=== PATIENT | female | born 1940 | race Caucasian/White ===

== ENCOUNTER 2017-12-15 11:10 | Inpatient (IN) | payer OTHER ==
--- NOTE | 2017-12-15 13:15 | R.PREADM ---
SCREENING DATE AND TIME 12/15/2017 10:17 (CDT) ANTICIPATED REHAB ADMISSION DATE 12/17/2017 REFERRING FACILITY [facility] REFERRAL DATE AND TIME 12/13/2017 10:17 (CDT) REFERRAL OFFICE PHONE REFERRAL ROOM# 401 ACUTE ADMIT DATE 12/12/2017 Previous Rehabilitation(s): No. 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 DORIAN EASTMAN REHAB FACILITY [facility] CLINICAL LIAISON Laina Harrell PHYSICIAN REVIEWER Dr. Maximiliano Bernal M.D. MR# [id number] NAME KYLIE CASE ADDRESS [address] [place] [address] [address] [place] [address] PHONE [facility] [id number] DATE OF 1940 AGE 77 N# [id number] GENDER female MARITAL STATUS RACE white ADMIT FROM 02 - [facility] PRE-HOSPITAL LIVING SETTING 01 - Home (private home/apt. board/care, assisted living, usp, transitional living) HOME TYPE AND DETAILS Type of home: Home on [facility] # of steps to enter the residence: 8 # of levels in the residence: 1 # of steps within the residence: 0 PRE-HOSPITAL LIVING WITH Family/Relatives FAMILY SUPPORT Yes PRIMARY FAMILY CONTACT NAME Arron Hinds PRIMARY FAMILY CONTACT PHONE PRIMARY FAMILY CONTACT RELATIONSHIP Significant Other IS PRIMARY FAMILY CONTACT AUTH. REP.? no 1ST EMERGENCY CONTACT Arron Hinds 1ST CONTACT PHONE 1ST CONTACT RELATIONSHIP Significant Other IS 1ST CONTACT AUTH. REP.? no PHONE 2ND CONTACT ON ADM.? no PATIENT EMPLOYMENT STATUS Retired (for age) PATIENT EMPLOYER No Employer PAYOR INFORMATION: 1ST PAYOR NAME MEDICARE 1ST PAYOR PHONE 1ST PAYOR CONTACT TBD 1ST PAYOR INJURY/ILLNESS DUE TO ACCIDENT? No ANOTHER DEMOCRAT RESPONSIBLE? No PRIMARY REHAB/ACUTE DIAGNOSIS: Impacted left subcapital femoral neck fracture ONSET DATE 12/12/2017 REHAB IMPAIRMENT CATEGORY (JESE): 07 Fracture of LE (FracLE) MEETS 60% rule AFFECTED EXTREMITIES: LLE PRIMARY DIAGNOSIS-RELATED SURGERIES: Emergency Percutaneous pin fixation left impacted femoral neck fracture - performed by DR. DORIAN VALENCIA on 12/13/2017 SUMMARY OF ACUTE HOSPITALIZATION: Pt. is a 77 yo Right-handed white female. On 12/12/2017 she was admitted to [facility] and underwent emergency surgery for Impacted le ft subcapital femoral neck fracture (Percutaneous pin fixation left impacted femoral neck fracture ) by DR. DORIAN EASTMAN. Pre-morbidly, Pt. was independent/mod-I in Locomotion and Self-Care; and she had good Transfers Contr ol, Balance, Safety Awareness, Social Cognition, Sphincter Control, and Communication. Currently, she has deficits of Sphincter Control, Locomotion, Balance, Endurance, Safety Awareness, T ransfers Control, and Self-Care. Pt. is now referred to [facility] for acute in-patient rehabilitation in order to maximize patient's functional independence in activities of daily living, strength, ROM, and mobi lity. Patient has realistic goal of being discharged at assistance level 6-Micheal to reside at Home with Fam mario alberto/Relatives. PAST MEDICAL HISTORY HTN Anemia PAST SURGICAL HISTORY: tonsillectomy Cholecystectomy right HILARY MEDICATION ALLERGIES: Sulfa ENVIRONMENTAL ALLERGIES: None Known - Substance Allergies None Known - Other Allergies None Known CODE STATUS: Not Available WEIGHT/HEIGHT/BMI: WEIGHT 140 HEIGHT 5' 3" BMI 24.8 DIET: - Diet Type Regular - Diet - Solid Texture Regular - Diet - Liquid Texture Regular - Tube Feed N/A SKIN DIAGRAM: Incision on Left hip; extent - small; stage - NS(Not Stageable). Treatment - Per Physician's Orders. Aching Left hip pain; level - 7. REVIEW OF SYSTEMS: - Gen Alert and awake Lying in bed No apparent distress Oriented to: person, time, and place - Vital Signs Vital signs stable, afebrile - CVS RRR VITAL SIGNS Temperature: 98.2 F SBP/DBP: 149/70 Pulse: 78 Resp: 18 Vital signs stable, afebrile FUNCTIONAL STATUS: - Self-Care A. Eating Ind sup B. Grooming Ind sup C. Bathing Ind maxA D. Dressing - Upper Ind modA E. Dressing - Lower Ind maxA F. Toileting Ind maxA - Sphincter Control G. Bladder control Ind maxA H. Bowel control Ind maxA - Transfers Control I. Bed/Chair/Wheelchair Ind maxA J. Toilet Ind maxA K. Tub/Shower Ind maxA - Locomotion L. Walk/Wheelchair (W) Ind Dep M. Stairs Ind ADNO - Communication N. Comprehension (B) Ind Micheal O. Expression (B) Ind Micheal - Social Cognition P. Social Interaction Ind Micheal Q. Problem Solving Ind Micheal R. Memory Ind Micheal - Endurance Poor - Balance Poor - Safety Awareness Poor CURRENT FUNC. DEFICITS: Sphincter Control, Locomotion, Balance, Endurance, Safety Awareness, Transfers Control, and Self-Care THERAPY NOTES FROM ACUTE CARE: Attached. SPECIAL NEEDS: - Safety Concerns Skin breakdown precautions needed due to skin breakdown risk PRECAUTIONS: - Weight Bearing Precaution TTWB left LE PATIENT NEEDS ACTIVE AND ONGOING THERAPEUTIC INTERVENTION OF MULTIPLE THERAPY DISCIPLINES, INCLUDING: - Occupational Therapy Evaluate and Treat. - Physical Therapy Evaluate and Treat. PATIENT NEEDS CLOSE MEDICAL SUPERVISION BY A REHABILITATION PHYSICIAN FOR: Bowel and Bladder Management Coordination of Treatment Team Post-Op Complications Wound Care PATIENT REQUIRES 24X7 REHAB NURSING FOR MEDICAL AND FUNCTIONAL MGT. OF THE FOLLOWING DEFICITS: ADL's Ambulation Bowel and Bladder Management Cognition Communication Disease Management Medication Management Patient/Family Education Providing Safe Environment Skin Integrity Transfers PATIENT REQUIRES INTENSIVE, COORDINATED INTERDISCIPLINARY APPROACH TO REHAB: Arranging Home Equipment/Services Discharge Planning Family Intervention/Training [employer] Director/Case Management PATIENT REHAB POTENTIAL: Expected level of measurable improvement will be of a practical value to patient's functional capacit y or adaptations to impairments Has a viable Discharge Plan Medically appropriate; condition is sufficiently stable to participate in intensive rehab program Patient is able and expected to receive 3 hours of individualized therapy daily on at least 5 of ever y 7 days Patient's prognosis for significant practical improvement within a reasonable period of time appears Good DISCHARGE PLAN: - Estimated Length of Stay (days) 14. - Consensus on plan Discharge plan has been discussed with primary caregiver. Patient/Family is in agreement with the devin n. Primary caregiver is in agreement with the plan. - Patient/Family Goals Return home with assistance. - Planned Living Setting Upon Discharge Home, to live with Family/Relatives. RECOMMENDED CARE LEVEL: IRF RECOMMENDATION DETAILS: Recommended Admission to Comprehensive Rehabilitation Program to Increase Functional [place] SCREENER'S COMPLETENESS CONFIRMATION: - Screening Confirmation The patient data collection on this preadmission screening form is finished PHYSICIANS REVIEW AND ADMISSION DETERMINATION Admit - Based on my review of the Pre-Admission Screening results, in my medical judgment and experie nce, I concur with the findings and recommend admission to [facility], as this patient requires an IRF level of care. SIGNATURE PANEL: Clinical Liaison - [electronically] signed by Fatemeh Hubbard, Glass Artist on 12/15/2017 at 10:44 (C DT) Clinical Liaison - [electronically] signed by Laina Asif RN on 12/15/2017 at 10:53 (CDT) Physician Reviewer - [electronically] signed by Dr. Maximiliano Bernal M.D. on 12/15/2017 at 12:17 (CDT )
--- NOTE | 2017-12-15 16:35 | RAD REPORT ---
EXAM DESCRIPTION: RAD - Hip Left 2 View - 12/15/2017 4:24 pm CLINICAL HISTORY: Left hip pain COMPARISON: 12/13/2017 FINDINGS: Four dynamic screws are present in the proximal left femur. No evidence of hardware loosen ing or malposition. Skin dana are noted laterally.
--- NOTE | 2017-12-15 16:50 | FAST ---
ENCOUNTER DATE AND TIME: 12/15/2017 08:00 (CDT) NAME KYLIE CASE DATE OF : 1940 DATE OF ADMISSION: 12/15/2017 13:36 (CDT) PHONE: AGE: 77 N# [id number] GENDER: Female ENCOUNTER PHYSICIAN: Dr. Maximiliano Bernal M.D. ADMISSION DIAGNOSIS: - Orthopaedic Disorders 08 - Unilateral Hip Fracture (08.11) Impacted left subcapital femoral neck fracture. EATING: Activity did not occur on this shift EATING - SCORE: 0-UNK GROOMING: Activity did not occur on this shift GROOMING - SCORE: 0-UNK BATHING: Activity did not occur on this shift BATHING - SCORE: 0-UNK DRESSING - UPPER BODY: Activity did not occur on this shift ARTICLES SCORE Total number of steps: 0 DRESSING - UPPER BODY - SCORE: 0-UNK DRESSING - LOWER BODY: Activity did not occur on this shift ARTICLES SCORE Total number of steps: 0 DRESSING - LOWER BODY - SCORE: 0-UNK TOILETING: Activity did not occur on this shift TOILETING - SCORE: 0-UNK BLADDER MANAGEMENT: Activity did not occur on this shift BLADDER MANAGEMENT - SCORE: 7-IND BOWEL MANAGEMENT: Activity did not occur on this shift BOWEL MANAGEMENT - SCORE: 7-IND TRANSFERS: BED, CHAIR, WHEELCHAIR: TRANSFERS: BED, CHAIR, WHEELCHAIR - STEP 1: Does the patient require assistance with bed, chair, or wheelchair transfers? Yes. TRANSFERS: BED, CHAIR, WHEELCHAIR - STEP 2: Does the patient require the assistance of a helper? Yes. TRANSFERS: BED, CHAIR, WHEELCHAIR - STEP 3: How much assistance does the patient require from the helper? Lifting of the patient TRANSFERS: BED, CHAIR, WHEELCHAIR - STEP 4: Does the helper lift the patient ONLY up? ONLY down? Up AND Down? Up AND Down. TRANSFERS: BED, CHAIR, WHEELCHAIR - SCORE: 2-MAX TRANSFERS: TOILET: Activity did not occur on this shift TRANSFERS: TOILET - SCORE: 0-UNK TRANSFERS: SHOWER: Activity did not occur on this shift TRANSFERS: SHOWER - SCORE: 0-UNK TRANSFERS: TUB: Activity did not occur on this shift TRANSFERS: TUB - SCORE: 0-UNK LOCOMOTION: WALK: Patient walks less than 50 feet LOCOMOTION: WALK - SCORE: 1-DEP LOCOMOTION: WHEELCHAIR: LOCOMOTION: WHEELCHAIR - STEP 1: Does the patient need help to go 150 feet in a wheelchair? Yes. LOCOMOTION: WHEELCHAIR - STEP 2: How much assistance does the patient need from the helper? Patient goes less than 150 feet - but more than 50 feet - with the assistance of only one helper LOCOMOTION: WHEELCHAIR - SCORE: 2-MAX LOCOMOTION: STAIRS: Activity did not occur on this shift LOCOMOTION: STAIRS - SCORE: 0-UNK COMPREHENSION: COMPREHENSION - SCORE: 0-UNK EXPRESSION EXPRESSION - SCORE: 0-UNK SOCIAL INTERACTION: SOCIAL INTERACTION - SCORE: 0-UNK PROBLEM SOLVING: PROBLEM SOLVING - SCORE: 0-UNK MEMORY: MEMORY - SCORE: 0-UNK SIGNATURE PANEL: The following modified sections: Transfers: Bed, Chair, Wheelchair - Score, Transfers: Toilet - Score , Locomotion: Walk - Score, Locomotion: Wheelchair - Score, Locomotion: Stairs - Score were [electron ically] signed by Terrence Tabor PT on TueDec 15 2017 15:51:26 T-0500 (Central Daylight Time)
[2017-12-15] MEDS ORDERED: HYDROCODONE/APAP 5/325 MG TAB PO PRN (17:36)
[2017-12-15] MEDS: AMOX/K CLAV 500 MG TAB PO SCH (20:20)
[2017-12-15] MEDS: TRAVOPROST 0.004% EACH EYE SCH (20:20)
[2017-12-15] MEDS: HYDROCODONE/APAP 7.5/325 MG TAB PO PRN (20:27)
--- NOTE | 2017-12-16 03:06 | FAST ---
SHIFT START DATE/TIME: 12/15/2017 19:00 (CDT) SHIFT END DATE/TIME: 12/16/2017 07:00 (CDT) NAME KYLIE CASE DATE OF : 1940 DATE OF ADMISSION: 12/15/2017 13:36 (CDT) PHONE: AGE: 77 N# [id number] GENDER: Female ENCOUNTER PHYSICIAN: Dr. Maximiliano Bernal M.D. ADMISSION DIAGNOSIS: - Orthopaedic Disorders 08 - Unilateral Hip Fracture (08.11) Impacted left subcapital femoral neck fracture. EATING: EATING - STEP 1: Does the patient require assistance when eating? Yes. EATING - STEP 2: Does the patient require the assistance of a helper? Yes. EATING - STEP 3: Does the patient perform half or more of the eating tasks? Yes. EATING - STEP 4: Does the patient need only supervision, cuing, coaxing OR help to apply an orthosis OR help to cut fo od, open containers, pour liquids, or butter bread? Yes. EATING - SCORE: 5-SUP GROOMING: Activity did not occur on this shift GROOMING - SCORE: 0-UNK BATHING: Activity did not occur on this shift BATHING - SCORE: 0-UNK DRESSING - UPPER BODY: Activity did not occur on this shift ARTICLES SCORE Total number of steps: 0 DRESSING - UPPER BODY - SCORE: 0-UNK DRESSING - LOWER BODY: Activity did not occur on this shift ARTICLES SCORE Total number of steps: 0 DRESSING - LOWER BODY - SCORE: 0-UNK TOILETING: TOILETING - STEP 1: Does the patient require assistance with toileting? Yes. TOILETING - STEP 2: Does the patient require the assistance of a helper? Yes. TOILETING - STEP 3: How much assistance does the patient require from the helper? Hands-on assistance from the helper TOILETING - STEP 4: Of the 3 tasks: 1) Adjusting clothing prior to use, 2) Cleansing of perineal area, 3) Adjusting clot joel after use; How many tasks does the patient perform WITHOUT assistance of the helper? No tasks; h elper performs all three tasks TOILETING - SCORE: 1-DEP BLADDER MANAGEMENT: Patient depends entirely on Balm when using bedpan [helper rolls patient onto side / side-lying pos ition; positions bedpan; assists patient to roll onto bedpan; holds bedpan in place; assists patient off bedpan]. BLADDER MANAGEMENT - SCORE: 1-DEP BLADDER MANAGEMENT - FREQUENCY OF ACCIDENTS: BLADDER MANAGEMENT(FA) - STEP 1: How many accidents has the patient had during the current shift? 1 BOWEL MANAGEMENT: Activity did not occur on this shift BOWEL MANAGEMENT - SCORE: 7-IND TRANSFERS: BED, CHAIR, WHEELCHAIR: Activity did not occur on this shift TRANSFERS: BED, CHAIR, WHEELCHAIR - SCORE: 0-UNK TRANSFERS: TOILET: Activity did not occur on this shift TRANSFERS: TOILET - SCORE: 0-UNK TRANSFERS: SHOWER: Activity did not occur on this shift TRANSFERS: SHOWER - SCORE: 0-UNK TRANSFERS: TUB: Activity did not occur on this shift TRANSFERS: TUB - SCORE: 0-UNK LOCOMOTION: WALK: Activity did not occur on this shift LOCOMOTION: WALK - SCORE: 0-UNK LOCOMOTION: WHEELCHAIR: Activity did not occur on this shift LOCOMOTION: WHEELCHAIR - SCORE: 0-UNK COMPREHENSION: COMPREHENSION: TYPE: Both COMPREHENSION - STEP 1: Does the patient require help to understand complex and abstract ideas (such as current events, finan kelley, discharge planning, medical issues, relationships, etc)? Yes. COMPREHENSION - STEP 2: Does the patient require help to understand questions or statements about basic needs or ideas (such as hunger, thirst, sleep, safety, daily schedule, room location, or discomfort) half or more of the t eric? No. COMPREHENSION - STEP 3: How often does the patient need help to understand directions and conversation about basic needs? Les s than 10% of the time COMPREHENSION - SCORE: 5-SUP EXPRESSION EXPRESSION: TYPE: Both EXPRESSION - STEP 1: Does the patient require help expressing complex and abstract ideas (such as current events, finances , discharge planning, medical issues, relationships, etc)? Yes. EXPRESSION - STEP 2: Does the patient require help to express basic necessities or ideas (such as hunger, thirst, sleep, s afety, daily schedule, room location, or discomfort) half or more of the time? No. EXPRESSION - STEP 3: How often does the patient need help to express directions and conversation about basic needs? Less t hernandez 10% of the time EXPRESSION - SCORE: 5-SUP SOCIAL INTERACTION: SOCIAL INTERACTION - STEP 1: Does the patient require a helper to interact with others in social and therapeutic situations? No. SOCIAL INTERACTION - STEP 2: Does the patient need extra time in social situations, OR does s/he interact with staff, other patien ts, and family members ONLY in structured environments, OR does s/he require medication for social in teraction? Yes, patient needs extra time SOCIAL INTERACTION - SCORE: 6-DARLING PROBLEM SOLVING: PROBLEM SOLVING - STEP 1: Does the patient need help to solve complex problems such as managing a checking account or confronti ng interpersonal problems? Yes. PROBLEM SOLVING - STEP 2: Does the patient solve basic routine problems half or more of the time? Yes. PROBLEM SOLVING - STEP 3: How often does the patient need help to solve basic routine problems? Less than 10% of the time PROBLEM SOLVING - SCORE: 5-SUP MEMORY: MEMORY - STEP 1: Does the patient need help to remember frequently encountered people, daily routines, and executing r equests? Yes. MEMORY - STEP 2: How often does the patient need help to remember frequently encountered people, daily routines, and e xecuting requests? Less than 10% of the time MEMORY - SCORE: 5-SUP SIGNATURE PANEL: The following modified sections: Eating - Score, Grooming - Score, Bathing - Score, Dressing - Upper Body - Score, Dressing - Lower Body - Score, Toileting - Score, Bladder Management - Score, Bowel Man agement - Score, Transfers: Bed, Chair, Wheelchair - Score, Transfers: Toilet - Score, Transfers: Leona wer - Score, Transfers: Tub - Score, Locomotion: Walk - Score, Locomotion: Wheelchair - Score, Compre hension - Score, Expression - Score, Social Interaction - Score, Problem Solving - Score, Memory - Sc ore were [electronically] signed by Keshia Gardiner C.N.Abigail on TueDec 16 2017 02:08:04 GMT-0500 ( Central Daylight Time)
[2017-12-16 06:15] LABS: Absolute Lymphocytes (CBC) 1.4 K/uL (0.7-4.9); Absolute Monocytes 0.9 K/uL (0.1-1.3); Absolute Neutrophil 6.4 K/uL (1.8-8.0); Basophils % 0.6 % (0-1.3); Eosinophils % 3.9 % (0-4.4); Hematocrit 33.1 % (36.0-45.0); Lymphocytes % 15.7 % (15.3-44.8); MCH 28.5 pg (27.0-35.0); MCV 87.8 fL (80-100); MPV 8.8 fL (7.6-11.3); Monocytes % 10.1 % (3.3-12.3); RBC Red Blood Cell Count 3.77 M/uL (3.86-4.86)
[2017-12-16 07:08] LABS: Albumin 2.8 g/dL (3.2-5.5); BUN Blood Urea Nitrogen 16 mg/dL (6-20); Bicarbonate 23 mEq/L (21-31); Glomerular Filtration Rate > 90 mL/min (=/>90); Glucose Level 112 mg/dL (65-120); Magnesium 2.1 mg/dL (1.8-2.5); Potassium 4.3 mEq/L (3.6-5.0); Prealbumin 13.8 mg/dl (18-38); Sodium Level 134 mEq/L (135-145)
[2017-12-16] MEDS: HYDROCODONE/APAP 7.5/325 MG TAB PO PRN ×3 (08:32→22:58)
[2017-12-16] MEDS: AMLODIPINE 5 MG TAB PO SCH (08:32)
[2017-12-16] MEDS: RIVAROXABAN 10 MG TABLET PO SCH (08:33)
[2017-12-16] MEDS: AMOX/K CLAV 500 MG TAB PO SCH ×2 (08:33→20:09)
[2017-12-16] MEDS: [UNRECOGNIZED DRUG - OTHER] EACH EYE SCH (08:33)
--- NOTE | 2017-12-16 09:31 | P.RH.PN ---
Estimated Length of Stay: 14 Expected Discharge Date: 12/28/17 Discharge Disposition Plan: Home Family Support: Yes Intermediate Goal: Mobility, Transfers, Self Care Vital Signs: Last Vital Signs Temp 97 F 12/16/17 07:07 Pulse 83 12/16/17 08:32 Resp 20 12/16/17 07:07 BP 131/67 12/16/17 08:32 Pulse Ox 96 12/16/17 07:07 Laboratory: Laboratory Last Values WBC 9.2 K/uL (4.3-10.9) 12/16/17 06:02 RBC 3.77 M/uL (3.86-4.86) L 12/16/17 06:02 Hgb 10.8 g/dL (12.0-15.0) L 12/16/17 06:02 Hct 33.1 % (36.0-45.0) L 12/16/17 06:02 MCV 87.8 fL (80-100) 12/16/17 06:02 MCH 28.5 pg (27.0-35.0) 12/16/17 06:02 MCHC 32.5 g/dL (32.0-36.0) 12/16/17 06:02 RDW 15.2 % (12.1-15.2) 12/16/17 06:02 Plt Count 244 K/uL (152-406) 12/16/17 06:02 MPV 8.8 fL (7.6-11.3) 12/16/17 06:02 Neutrophils % 69.7 % (41.7-73.7) 12/16/17 06:02 Lymphocytes % 15.7 % (15.3-44.8) 12/16/17 06:02 Monocytes % 10.1 % (3.3-12.3) 12/16/17 06:02 Eosinophils % 3.9 % (0-4.4) 12/16/17 06:02 Basophils % 0.6 % (0-1.3) 12/16/17 06:02 Absolute Neutrophils 6.4 K/uL (1.8-8.0) 12/16/17 06:02 Absolute Lymphocytes 1.4 K/uL (0.7-4.9) 12/16/17 06:02 Absolute Monocytes 0.9 K/uL (0.1-1.3) 12/16/17 06:02 Absolute Eosinophils 0.4 K/uL (0-0.5) 12/16/17 06:02 Absolute Basophils 0.1 K/uL (0-0.5) 12/16/17 06:02 Sodium 134 mEq/L (135-145) L 12/16/17 06:02 Potassium 4.3 mEq/L (3.6-5.0) 12/16/17 06:02 Chloride 105 mEq/L (101-111) 12/16/17 06:02 Carbon Dioxide 23 mEq/L (21-31) 12/16/17 06:02 BUN 16 mg/dL (6-20) 12/16/17 06:02 Creatinine 0.54 mg/dL (0.44-1.00) 12/16/17 06:02 Estimated GFR > 90 mL/min (=/>90) 12/16/17 06:02 Glucose 112 mg/dL (65-120) 12/16/17 06:02 Calcium 8.7 mg/dL (8.5-10.5) 12/16/17 06:02 Magnesium 2.1 mg/dL (1.8-2.5) 12/16/17 06:02 Albumin 2.8 g/dL (3.2-5.5) L 12/16/17 06:02 Prealbumin 13.8 mg/dl (18-38) L 12/16/17 06:02 Weight: 142 lb 14.4 oz Wound Present: No Closed Surgical Incision Present: Yes Negative Pressure Wound Therapy Present: No Physician Update: Her Hgb is mildly low. Will put hemocyte plus. Prealbumin is mildly low will add promod. She is doing well with touch down status. Her x-ray of the left hip showed no dislocation. She is followed by Dr. Cortes. pain is managed well. Will add senokote for constipation. She is on augmentin 500 bid for 7 days for UTI found prior to admission on the rehab unit. Functional Improvement: pt presents with Severe weakness in bilateral LEs with the L LE exhibiting greater deficits. pt demonstrates reduced balance and stability during functional mobility. pt is unable to maintain TDWB during ambulation. pt exhibits poor tolerance to functional activity as she quickly fatigues. Skilled PT services are necessary to address the above mentioned impairments and functional limitations. Summary: Patient's care plan and penitentiary goals have been reviewed and revised as necessary. Please see the Rehabilitation Signature page for all necessary signatures.
--- NOTE | 2017-12-16 12:47 | R.HP ---
FACILITY: [facility] ENCOUNTER DATE AND TIME: 12/16/2017 11:45 (CDT) MR#: [id number] NAME KYLIE CASE ADDRESS: [address] [place] [address] ROAD [facility] [place] [place] [address] PHONE: DATE OF : 1940 AGE: 77 SSN# [id number] GENDER: Female DEXTERITY Right-handed MARITAL STATUS RACE White PRE-HOSPITAL LIVING SETTING 01 - Home (private home/apt. board/care, assisted living, penitentiary, transitional living) PRE-HOSPITAL LIVING WITH Family/Relatives ENCOUNTER PHYSICIAN: Dr. Maximiliano Bernal M.D. REFERRING DOCTOR: DR. DORIAN EASTMAN DATE OF ADMISSION: 12/15/2017 13:36 (CDT) REFERRING FACILITY [facility] HOME TYPE AND DETAILS: Type of home: [place] # of steps to enter the residence: 8 # of levels in the residence: 1 # of steps within the residence: 0 ADMISSION DIAGNOSIS: Impacted left subcapital femoral neck fracture ONSET DATE: 12/12/2017 PRIMARY DIAGNOSIS-RELATED SURGERIES: Emergency Percutaneous pin fixation left impacted femoral neck fracture - performed by DR. DORIAN VALENCIA on 12/13/2017 HISTORY OF PRESENT ILLNESS (HPI): Pt. is a 77 yo Right-handed white female. On 12/12/2017 she was admitted to [facility] and underwent emergency surgery for Impacted le ft subcapital femoral neck fracture (Percutaneous pin fixation left impacted femoral neck fracture ) by DR. DORIAN EASTMAN. Pre-morbidly, Pt. was independent/mod-I in Locomotion and Self-Care; and she had good Transfers Contr ol, Balance, Safety Awareness, Social Cognition, Sphincter Control, and Communication. Currently, she has deficits of Sphincter Control, Locomotion, Balance, Endurance, Safety Awareness, T ransfers Control, and Self-Care. Pt. is now referred to [facility] for acute in-patient rehabilitation in order to maximize patient's functional independence in activities of daily living, strength, ROM, and mobi lity. Patient has realistic goal of being discharged at assistance level 6-Micheal to reside at Home with Fam mario alberto/Relatives. MEDICATION ALLERGIES: Sulfa ENVIRONMENTAL ALLERGIES: None Known - Substance Allergies None Known - Other Allergies None Known PAST MEDICAL HISTORY: HTN Anemia PAST SURGICAL HISTORY: tonsillectomy Cholecystectomy right HILARY FAMILY HISTORY: Family history is not contributory. SOCIAL HISTORY: - Home Living Family/Relatives REVIEW OF SYSTEMS: - Gen No Chills No Fatigue No Fever - Eyes No Double Vision No itchiness - ENMT No Difficulty Swallowing - CVS No Chest Discomfort No Chest Pain No Fatigue No Weight Gain - Resp No Cough No Shortness of Breath - GI Continent No Abdominal Pain No Constipation No Diarrhea - Continent No Kidney Pain No Painful Urination No Urinary Urgency - MSK No Joint Pain No Muscle Cramps No Stiffness - Skin No Itching No Rash No Suspicious Lesions - Neuro No Coordination Difficulty No Difficulty with Concentration No Memory Loss No Seizures No Weakness - Psych No Anxiety No Depression No HIV Exposure No Persistent Infections No Seasonal Allergies - Endo No Cold/Heat Intolerance No Excessive Hunger No Excessive Thirst No Excessive Urination PHYSICAL EXAM - Gen Alert and awake Lying in bed No apparent distress Oriented to: person, time, and place - Vital Signs Vital signs stable, afebrile - Skin No skin breakdown. Normacephalic - Eyes No abnormalities - ENMT No abnormalities - Neck No abnormalities - CVS RRR - Chest Clear - Abd Soft - GI Non distended Deferred - No abnormalities - Ext No significant edema - MSK 4+/5 weakness in left lower extremity - Neuro Mild left leg 4/5 weakness. - Psych No abnormalities VITAL SIGNS Temperature: 98.2 F SBP/DBP: 149/70 Pulse: 78 Resp: 18 Vital signs stable, afebrile NURSING: - Shower allowing shower - Skin care per protocol PRECAUTIONS: - Weight Bearing Precaution TTWB left LE ACTIVITIES OOB only with supervision FUNCTIONAL STATUS: - Self-Care A. Eating Ind sup B. Grooming Ind sup C. Bathing Ind maxA D. Dressing - Upper Ind modA E. Dressing - Lower Ind maxA F. Toileting Ind maxA - Sphincter Control G. Bladder control Ind maxA H. Bowel control Ind maxA - Transfers Control I. Bed/Chair/Wheelchair Ind maxA J. Toilet Ind maxA K. Tub/Shower Ind maxA - Locomotion L. Walk/Wheelchair (W) Ind Dep M. Stairs Ind ADNO - Communication N. Comprehension (B) Ind Micheal O. Expression (B) Ind Micheal - Social Cognition P. Social Interaction Ind Micheal Q. Problem Solving Ind Micheal R. Memory Ind Micheal - Endurance Poor - Balance Poor - Safety Awareness Poor CURRENT FUN. DEFICITS: Sphincter Control, Locomotion, Balance, Endurance, Safety Awareness, Transfers Control, and Self-Care ASSESSMENT: Pt. is a 77 yo Right-handed white female.On 12/12/2017 she was admitted to [facility] and [facility] emergency surgery for Impacted left subcapital femoral neck fracture (Percutaneous pin fixati on left impacted femoral neck fracture ) by DR. DORIAN EASTMAN.Pre-morbidly, Pt. was independent/mod-I in Locomotion and Self-Care; and she had good Transfers Control, Balance, Safety Awareness, Social C ognition, Sphincter Control, and Communication.Currently, she has deficits of Sphincter Control, [place] motion, Balance, Endurance, Safety Awareness, Transfers Control, and Self-Care.Pt. is now referred to [facility] for acute in-patient rehabilitation in order to maximize patient's functional independence in activities of daily living, strength, ROM, and mobility.- Rehab Goal Patient has realistic goal of being discharged at assistance level 6-Micheal to reside at Home with Fam mario alberto/Relatives. REHAB PLAN: - Physical Therapy Decreased range of motion - to improve, our physical therapists will perform initial evaluation of pt 's status upon admission and devise an individualized program for increasing patient's Range of Motio n. Gait dysfunction - to improve, our physical therapists will perform initial evaluation of pt's status upon admission and devise an individualized program for Gait Training, and Wheel Chair mobility Inability to transfer - to improve, our physical therapists will perform initial evaluation of pt's s tatus upon admission and devise an individualized program for Bed mobility Need for home safety evaluation - to improve, our physical therapists will perform initial evaluation of pt's status upon admission and devise an individualized program for Home Evaluation Need in caregiver upon discharge - to improve, our physical therapists will perform initial evaluatio n of pt's status upon admission and devise an individualized program for Caregiver Training New precaution - to improve, our physical therapists will perform initial evaluation of pt's status u tino admission and devise an individualized program for Patient precaution education Edema - to improve, our physical therapists will perform initial evaluation of pt's status upon admi ssion and devise an individualized program for Elevation Training, and Lymphedema Therapy Poor balance - to improve, our physical therapists will perform initial evaluation of pt's status upo n admission and devise an individualized program for Balance Training Poor endurance - to improve, our physical therapists will perform initial evaluation of pt's status u tino admission and devise an individualized program for Endurance Training Weakness - to improve, our physical therapists will perform initial evaluation of pt's status upon ad mission and devise an individualized program for Aquatic Therapy, Neuromuscular Reeducation, and Stre ngthening Achieving independence - to improve, our physical therapists will perform initial evaluation of pt's status upon admission and devise an individualized program for Community Reintegration Activities - Occupational Therapy ADL deficits - to improve, our occupation therapists will perform initial evaluation of pt's status u tino admission and devise an individualized program for Bathing, Bed mobility, Community Reintegration , Cooking, Dressing, Eating, Fine Motor Skills, Grooming, Homemaking, Kitchen Mobility, Laundry, Crystal ent Education, Safety Awareness, Splinting - Positioning, Transfers(Toilet, Tub, Shower), and Wheel C hair Management Need for hearing care professional - to improve, our occupation therapists will perform initial evaluation of pt's s tatus upon admission and devise an individualized program for Caregiver Training Weakness - to improve, our occupation therapists will perform initial evaluation of pt's status upon admission and devise an individualized program for Aquatic Therapy, Balance, Endurance, UE ROM, and U E strengthening MEDICAL PLAN: - Anterior Hip Precaution No abduction No active extension No adduction across midline No external rotation No hip flexion >90 degrees No internal rotation - Diet - Liquid Texture Start Regular - Tube Feed Start N/A - Diet Type Start Regular - Posterior Hip Precaution No adduction across midline No external rotation No hip flexion >90 degrees No internal rotation No wheel chair propulsion - Weight Bearing Precaution TTWB left LE - Skin care per protocol - Diet - Solid Texture Regular - Shower shower DISCHARGE PLAN: - Estimated Length of Stay (days) 14. - Consensus on plan Discharge plan has been discussed with primary caregiver. Patient/Family is in agreement with the devin n. Primary caregiver is in agreement with the plan. - Patient/Family Goals Return home with assistance. - Planned Living Setting Upon Discharge Home, to live with Family/Relatives. SIGNATURE PANEL: (CDT)
--- NOTE | 2017-12-16 12:49 | PAPE ---
PATIENT: [facility] MR# [id number] REFERRING DOCTOR DR. DORIAN EASTMAN EVALUATION DATE AND TIME 12/16/2017 11:49 (CDT) NAME KYLIE CASE DATE OF 1940 AGE 77 PHONE SSN# [id number] GENDER female EVALUATING PHYSICIAN Dr. Maximiliano Bernal M.D. ADMISSION DIAGNOSIS: Impacted left subcapital femoral neck fracture ONSET DATE 12/12/2017 STATUS CHANGE EVALUATION: No change in Functional or Medical Status is identified compared with Pre-Admission screening. PATIENT NEEDS CLOSE MEDICAL SUPERVISION BY A REHABILITATION PHYSICIAN FOR: Bowel and Bladder Management Coordination of Treatment Team Post-Op Complications Wound Care PATIENT REQUIRES 24X7 REHAB NURSING FOR MEDICAL AND FUNCTIONAL MGT. OF THE FOLLOWING DEFICITS: ADL's Ambulation Bowel and Bladder Management Cognition Communication Disease Management Medication Management Patient/Family Education Providing Safe Environment Skin Integrity Transfers PATIENT REQUIRES INTENSIVE, COORDINATED INTERDISCIPLINARY APPROACH TO REHAB: Arranging Home Equipment/Services Discharge Planning Family Intervention/Training Alterations Supervisor/Case Management LIST OF IDENTIFIED AND POTENTIAL PROBLEMS: Alteration in leisure activities Infection, Actual or Potential Mobility Impaired Pain, Alteration in Comfort Self Care Deficit Skin Integrity, Actual or Potential Urinary Tract Infection (UTI), Actual or Potential PATIENT COULD BE AT RISK FOR COMPLICATIONS FROM ADVERSE MEDICAL CONDITIONS DUE TO HIS/HER COMORBIDITI ES AND THE RIGORS OF THE INTENSIVE REHABILLITATION PROGRAM. METHODS OR INTERVENTIONS TO AVOID COMPLIC ATIONS INCLUDE: - Bleeding Assess lab values and manage abnormalities. Nursing to teach precautions for anti-coagulation therapy . Wound to be assessed every shift. - Infection Clinical staff to assess and manage the signs and symptoms of infection including fever, redness, war mth, etc. - Urinary Tract Infection - Falls Patient will be evaluated for Fall Precautions and will be placed on Fall Precautions as indicated pe r protocol. - Skin Breakdown Nursing will assess skin daily using assessment tool and will place on Skin Breakdown Precautions as indicated per protocol. - Pain Clinical staff may employ non-medication methods such as massage, distraction, decrease stimulus, etc . as needed. Clinical staff will assess patient's pain level every shift per protocol to assess and e nsure pain management effectiveness. Medications will be given and the pain level re-assessed. PRELIMINARY PLAN OF CARE: - Physical Therapy Patient needs Physical Therapy for a daily minimum of 1.5 hours at least 5 out of 7 days, to improve: Mobility, Strengthening, Transfers, Stretching, ROM, Endurance, Ability to manage stairs, Gait, and Balance. - Rehabilitation Nursing Patient requires 24x7 Rehabilitation Nursing for: Pain Issues, Identifying and preventing risk factor s, Monitoring and reporting current medical conditions, Assisting with ambulation and transfer, Celestina ting with all ADL-s, Teaching patients about disease process and medications, Family teaching, Provid ing safe environment, Bowel and Bladder Issues, Skin Integrity, and Medication Management. Patient needs Alterations Supervisor and/or Case Management for: Discharge Planning, Arranging Home Equipmen t or Services, and Family Interventions. - Dietary and Nutrition Services Patient needs Dietary and Nutrition Services for: Adequate Nutrition, Nutritional Supplements, and Nu tritional Education. - Occupational Therapy Patient needs Occupational Therapy for a daily minimum of 1.5 hours at least 5 out of 7 days, to impr ove Activities of Daily Living, including: Eating, Grooming, Bathing, Dressing, Toileting, Toilet Tra nsfers, Community Reintegration, Higher functional activities, Adaptive Equipment, Splinting, Househo ld Tasks, and Other activities as determined. POTENTIAL FUNCTIONAL GOALS FOR PATIENT TO ACHIEVE BY DISCHARGE: - Safety Precaution Patient will remain free from falls or injury at time of discharge. - Bed Mobility Patient will perform bed mobility at 4-Shelbi level of assistance. - Transfers Patient will complete transfers from bed to chair at 4-Shelbi level of assistance. - Mobility Patient will ambulate 150 ft with 4-Shelbi level of assistance with RW. PATIENT REHAB POTENTIAL Expected level of measurable improvement will be of a practical value to patient's functional capacit y or adaptations to impairments Has a viable Discharge Plan Medically appropriate; condition is sufficiently stable to participate in intensive rehab program Patient is able and expected to receive 3 hours of individualized therapy daily on at least 5 of ever y 7 days Patient's prognosis for significant practical improvement within a reasonable period of time appears Good DISCHARGE PLAN: - Estimated Length of Stay (days) 14. - Consensus on plan Discharge plan has been discussed with primary caregiver. Patient/Family is in agreement with the devin n. Primary caregiver is in agreement with the plan. - Patient/Family Goals Return home with assistance. - Planned Living Setting Upon Discharge Home, to live with Family/Relatives. SIGNATURE PANEL: (CDT)
--- NOTE | 2017-12-16 14:39 | FAST ---
ENCOUNTER DATE AND TIME: 12/16/2017 08:00 (CDT) NAME KYLIE CASE DATE OF : 1940 DATE OF ADMISSION: 12/15/2017 13:36 (CDT) PHONE: AGE: 77 N# [id number] GENDER: Female ENCOUNTER PHYSICIAN: Dr. Maximiliano Bernal M.D. ADMISSION DIAGNOSIS: - Orthopaedic Disorders 08 - Unilateral Hip Fracture (08.11) Impacted left subcapital femoral neck fracture. EATING: Activity did not occur on this shift EATING - SCORE: 0-UNK GROOMING: Wash, rinse, and dry face Wash, rinse, and dry hands GROOMING - STEP 1: Does the patient require assistance when grooming? Yes. GROOMING - STEP 2: Does the patient require the assistance of a helper? Yes. GROOMING - STEP 3: How much assistance does the patient require from the helper? Only prior equipment preparation/set up from the helper GROOMING - SCORE: 5-SUP BATHING: Abdomen Buttocks Chest Left arm Left lower leg and foot Left upper leg Perineal area Right arm Right lower leg and foot Right upper leg BATHING - STEP 1: Does the patient require assistance when bathing? Yes. BATHING - STEP 2: Does the patient require the assistance of a helper? Yes. BATHING - STEP 3: How much assistance does the patient require from the helper? Only incidental help such as placement of a wash cloth in his/her hand a few times as s/he bathes OR help to bathe just one or two areas of the body BATHING - SCORE: 4-MIN DRESSING - UPPER BODY: T-shirt/pullover shirt (four steps) ARTICLES SCORE Total number of steps: 4 DRESSING - UPPER BODY - STEP 1: Does the patient require help when dressing above the waist? Yes. DRESSING - UPPER BODY - STEP 2: Does the patient require the assistance of a helper? Yes. DRESSING - UPPER BODY - STEP 3: Does the helper touch the patient while dressing? No. DRESSING - UPPER BODY - SCORE: 5-SUP DRESSING - LOWER BODY: Elastic waist pants (three steps) Sock - Left foot (one step) Sock - Right foot (one step) Underwear (three steps) ARTICLES SCORE Total number of steps: 8 DRESSING - LOWER BODY - STEP 1: Does the patient require help when dressing below the waist? Yes. DRESSING - LOWER BODY - STEP 2: Does the patient require the assistance of a helper? Yes. DRESSING - LOWER BODY - STEP 3: Does the helper touch the patient while dressing? Yes. DRESSING - LOWER BODY - STEP 4: How many of the total steps does the patient complete on his/her own? 5 DRESSING - LOWER BODY - SCORE: 3-MOD TOILETING: TOILETING - STEP 1: Does the patient require assistance with toileting? Yes. TOILETING - STEP 2: Does the patient require the assistance of a helper? Yes. TOILETING - STEP 3: How much assistance does the patient require from the helper? Hands-on assistance from the helper TOILETING - STEP 4: Of the 3 tasks: 1) Adjusting clothing prior to use, 2) Cleansing of perineal area, 3) Adjusting clot joel after use; How many tasks does the patient perform WITHOUT assistance of the helper? Three tasks with steadying assistance from the helper TOILETING - SCORE: 4-MIN BLADDER MANAGEMENT: Activity did not occur on this shift BLADDER MANAGEMENT - SCORE: 7-IND BOWEL MANAGEMENT: Activity did not occur on this shift BOWEL MANAGEMENT - SCORE: 7-IND TRANSFERS: BED, CHAIR, WHEELCHAIR: TRANSFERS: BED, CHAIR, WHEELCHAIR - STEP 1: Does the patient require assistance with bed, chair, or wheelchair transfers? Yes. TRANSFERS: BED, CHAIR, WHEELCHAIR - STEP 2: Does the patient require the assistance of a helper? Yes. TRANSFERS: BED, CHAIR, WHEELCHAIR - STEP 3: How much assistance does the patient require from the helper? Lifting of the legs TRANSFERS: BED, CHAIR, WHEELCHAIR - STEP 4: How many legs does the patient require the helper to lift? one leg TRANSFERS: BED, CHAIR, WHEELCHAIR - SCORE: 4-MIN TRANSFERS: TOILET: TRANSFERS: TOILET - STEP 1: Does the patient require assistance with toilet transfers? Yes. TRANSFERS: TOILET - STEP 2: Does the patient require the assistance of a helper? Yes. TRANSFERS: TOILET - STEP 3: How much assistance does the patient require from the helper? Patient performs half or more of the tr ansferring tasks TRANSFERS: TOILET - STEP 4: Does the patient need only incidental help such as contact guard or steadying during toilet transfer? Yes. TRANSFERS: TOILET - SCORE: 4-MIN TRANSFERS: SHOWER: TRANSFERS: SHOWER - STEP 1: Does the patient require assistance with shower transfers? Yes. TRANSFERS: SHOWER - STEP 2: Does the patient require the assistance of a helper? Yes. TRANSFERS: SHOWER - STEP 3: How much assistance does the patient require from the helper? Only incidental help such as contact gu arding or steadying during shower transfers, or help to lift one leg into the shower TRANSFERS: SHOWER - SCORE: 4-MIN TRANSFERS: TUB: Activity did not occur on this shift TRANSFERS: TUB - SCORE: 0-UNK LOCOMOTION: WALK: Activity did not occur on this shift LOCOMOTION: WALK - SCORE: 0-UNK LOCOMOTION: WHEELCHAIR: Activity did not occur on this shift LOCOMOTION: WHEELCHAIR - SCORE: 0-UNK LOCOMOTION: STAIRS: Activity did not occur on this shift LOCOMOTION: STAIRS - SCORE: 0-UNK COMPREHENSION: COMPREHENSION: TYPE: Both COMPREHENSION - STEP 1: Does the patient require help to understand complex and abstract ideas (such as current events, finan kelley, discharge planning, medical issues, relationships, etc)? No. COMPREHENSION - STEP 2: Does the patient need extra time, require an assistive device (such as glasses, hearing aids, or an a ugmentative communication system), OR does s/he have mild difficulty expressing complex and abstract ideas (including mild dysarthria or mild word-finding problems)? Yes. COMPREHENSION - SCORE: 6-DARLING EXPRESSION EXPRESSION: TYPE: Both EXPRESSION - STEP 1: Does the patient require help expressing complex and abstract ideas (such as current events, finances , discharge planning, medical issues, relationships, etc)? No. EXPRESSION - STEP 2: Does the patient need extra time, require an assistive device (such as augmentive communication syste m or a communication board), OR does s/he have mild difficulty expressing complex and abstract ideas (including mild dysarthria or mild word-find problems)? No. EXPRESSION - SCORE: 7-IND SOCIAL INTERACTION: SOCIAL INTERACTION - STEP 1: Does the patient require a helper to interact with others in social and therapeutic situations? No. SOCIAL INTERACTION - STEP 2: Does the patient need extra time in social situations, OR does s/he interact with staff, other patien ts, and family members ONLY in structured environments, OR does s/he require medication for social in teraction? No. SOCIAL INTERACTION - SCORE: 7-IND PROBLEM SOLVING: PROBLEM SOLVING - STEP 1: Does the patient need help to solve complex problems such as managing a checking account or confronti ng interpersonal problems? Yes. PROBLEM SOLVING - STEP 2: Does the patient solve basic routine problems half or more of the time? Yes. PROBLEM SOLVING - STEP 3: How often does the patient need help to solve basic routine problems? Less than 10% of the time PROBLEM SOLVING - SCORE: 5-SUP MEMORY: MEMORY - STEP 1: Does the patient need help to remember frequently encountered people, daily routines, and executing r equests? No. MEMORY - STEP 2: Does the patient have slight difficulty recognizing frequently encountered people, daily routines, or executing requests without the need for repetition or using self-initiated or environmental cues to remember? Yes. MEMORY - SCORE: 6-DARLING SIGNATURE PANEL: The following modified sections: Eating - Score, Grooming - Score, Bathing - Score, Dressing - Upper Body - Score, Dressing - Lower Body - Score, Toileting - Score, Transfers: Bed, Chair, Wheelchair - S core, Transfers: Toilet - Score, Transfers: Shower - Score, Transfers: Tub - Score, Comprehension - S core, Expression - Score, Social Interaction - Score, Problem Solving - Score, Memory - Score were [e lectronically] signed by Cherelle Claudio OT on TueDec 16 2017 13:40:31 T-0500 ([facility] Time)
--- NOTE | 2017-12-16 16:10 | FAST ---
ENCOUNTER DATE AND TIME: 12/16/2017 08:00 (CDT) NAME KYLIE CASE DATE OF : 1940 DATE OF ADMISSION: 12/15/2017 13:36 (CDT) PHONE: AGE: 77 N# [id number] GENDER: Female ENCOUNTER PHYSICIAN: Dr. Maximiliano Bernal M.D. ADMISSION DIAGNOSIS: - Orthopaedic Disorders 08 - Unilateral Hip Fracture (08.11) Impacted left subcapital femoral neck fracture. EATING: Activity did not occur on this shift EATING - SCORE: 0-UNK GROOMING: Activity did not occur on this shift GROOMING - SCORE: 0-UNK BATHING: Activity did not occur on this shift BATHING - SCORE: 0-UNK DRESSING - UPPER BODY: Activity did not occur on this shift ARTICLES SCORE Total number of steps: 0 DRESSING - UPPER BODY - SCORE: 0-UNK DRESSING - LOWER BODY: Activity did not occur on this shift ARTICLES SCORE Total number of steps: 0 DRESSING - LOWER BODY - SCORE: 0-UNK TOILETING: Activity did not occur on this shift TOILETING - SCORE: 0-UNK BLADDER MANAGEMENT: Activity did not occur on this shift BLADDER MANAGEMENT - SCORE: 7-IND BOWEL MANAGEMENT: Activity did not occur on this shift BOWEL MANAGEMENT - SCORE: 7-IND TRANSFERS: BED, CHAIR, WHEELCHAIR: TRANSFERS: BED, CHAIR, WHEELCHAIR - STEP 1: Does the patient require assistance with bed, chair, or wheelchair transfers? Yes. TRANSFERS: BED, CHAIR, WHEELCHAIR - STEP 2: Does the patient require the assistance of a helper? Yes. TRANSFERS: BED, CHAIR, WHEELCHAIR - STEP 3: How much assistance does the patient require from the helper? Only supervision TRANSFERS: BED, CHAIR, WHEELCHAIR - SCORE: 5-SUP TRANSFERS: TOILET: Activity did not occur on this shift TRANSFERS: TOILET - SCORE: 0-UNK TRANSFERS: SHOWER: Activity did not occur on this shift TRANSFERS: SHOWER - SCORE: 0-UNK TRANSFERS: TUB: Activity did not occur on this shift TRANSFERS: TUB - SCORE: 0-UNK LOCOMOTION: WALK: Activity did not occur on this shift LOCOMOTION: WALK - SCORE: 0-UNK LOCOMOTION: WHEELCHAIR: Activity did not occur on this shift LOCOMOTION: WHEELCHAIR - SCORE: 0-UNK LOCOMOTION: STAIRS: Activity did not occur on this shift LOCOMOTION: STAIRS - SCORE: 0-UNK COMPREHENSION: COMPREHENSION - SCORE: 0-UNK EXPRESSION EXPRESSION - SCORE: 0-UNK SOCIAL INTERACTION: SOCIAL INTERACTION - SCORE: 0-UNK PROBLEM SOLVING: PROBLEM SOLVING - SCORE: 0-UNK MEMORY: MEMORY - SCORE: 0-UNK SIGNATURE PANEL: The following modified sections: Transfers: Bed, Chair, Wheelchair - Score, Transfers: Toilet - Score , Locomotion: Walk - Score, Locomotion: Wheelchair - Score, Locomotion: Stairs - Score were [electron icaday] signed by Herman Perez PTA on TueDec 16 2017 15:11:21 GMT-0500 (Central Daylight Time)
--- NOTE | 2017-12-16 16:21 | FAST ---
SHIFT START DATE/TIME: 12/16/2017 07:00 (CDT) SHIFT END DATE/TIME: 12/16/2017 19:00 (CDT) NAME KYLIE CASE DATE OF : 1940 DATE OF ADMISSION: 12/15/2017 13:36 (CDT) PHONE: AGE: 77 [facility]# [id number] GENDER: Female ENCOUNTER PHYSICIAN: Dr. Maximiliano Bernal M.D. ADMISSION DIAGNOSIS: - Orthopaedic Disorders 08 - Unilateral Hip Fracture (08.11) Impacted left subcapital femoral neck fracture. EATING: EATING - STEP 1: Does the patient require assistance when eating? Yes. EATING - STEP 2: Does the patient require the assistance of a helper? Yes. EATING - STEP 3: Does the patient perform half or more of the eating tasks? Yes. EATING - STEP 4: Does the patient need only supervision, cuing, coaxing OR help to apply an orthosis OR help to cut fo od, open containers, pour liquids, or butter bread? Yes. EATING - SCORE: 5-SUP GROOMING: Comb/brush hair Oral care Wash, rinse, and dry face Wash, rinse, and dry hands GROOMING - STEP 1: Does the patient require assistance when grooming? Yes. GROOMING - STEP 2: Does the patient require the assistance of a helper? Yes. GROOMING - STEP 3: How much assistance does the patient require from the helper? Only prior equipment preparation/set up from the helper GROOMING - SCORE: 5-SUP BATHING: Activity did not occur on this shift BATHING - SCORE: 0-UNK DRESSING - UPPER BODY: Activity did not occur on this shift ARTICLES SCORE Total number of steps: 0 DRESSING - UPPER BODY - SCORE: 0-UNK DRESSING - LOWER BODY: Activity did not occur on this shift ARTICLES SCORE Total number of steps: 0 DRESSING - LOWER BODY - SCORE: 0-UNK TOILETING: TOILETING - STEP 1: Does the patient require assistance with toileting? Yes. TOILETING - STEP 2: Does the patient require the assistance of a helper? Yes. TOILETING - STEP 3: How much assistance does the patient require from the helper? Hands-on assistance from the helper TOILETING - STEP 4: Of the 3 tasks: 1) Adjusting clothing prior to use, 2) Cleansing of perineal area, 3) Adjusting clot joel after use; How many tasks does the patient perform WITHOUT assistance of the helper? One task TOILETING - SCORE: 2-MAX BLADDER MANAGEMENT: BLADDER MANAGEMENT - STEP 1: Does the patient control the bladder completely and intentionally without equipment or devices or med ications, and is always continent? No. BLADDER MANAGEMENT - STEP 2: Does the patient require the assistance of a helper? No, patient only requires extra time BLADDER MANAGEMENT - SCORE: 6-DARLING BLADDER MANAGEMENT - FREQUENCY OF ACCIDENTS: BLADDER MANAGEMENT(FA) - STEP 1: How many accidents has the patient had during the current shift? 0 BOWEL MANAGEMENT: Activity did not occur on this shift BOWEL MANAGEMENT - SCORE: 7-IND BOWEL MANAGEMENT - FREQUENCY OF ACCIDENTS: BOWEL MANAGEMENT(FA) - STEP 1: How many accidents has the patient had during the current shift? 0 TRANSFERS: BED, CHAIR, WHEELCHAIR: TRANSFERS: BED, CHAIR, WHEELCHAIR - STEP 1: Does the patient require assistance with bed, chair, or wheelchair transfers? Yes. TRANSFERS: BED, CHAIR, WHEELCHAIR - STEP 2: Does the patient require the assistance of a helper? Yes. TRANSFERS: BED, CHAIR, WHEELCHAIR - STEP 3: How much assistance does the patient require from the helper? Lifting of the legs TRANSFERS: BED, CHAIR, WHEELCHAIR - STEP 4: How many legs does the patient require the helper to lift? one leg TRANSFERS: BED, CHAIR, WHEELCHAIR - SCORE: 4-MIN TRANSFERS: TOILET: TRANSFERS: TOILET - STEP 1: Does the patient require assistance with toilet transfers? Yes. TRANSFERS: TOILET - STEP 2: Does the patient require the assistance of a helper? Yes. TRANSFERS: TOILET - STEP 3: How much assistance does the patient require from the helper? Patient performs half or more of the tr ansferring tasks TRANSFERS: TOILET - STEP 4: Does the patient need only incidental help such as contact guard or steadying during toilet transfer? Yes. TRANSFERS: TOILET - SCORE: 4-MIN TRANSFERS: SHOWER: Activity did not occur on this shift TRANSFERS: SHOWER - SCORE: 0-UNK TRANSFERS: TUB: Activity did not occur on this shift TRANSFERS: TUB - SCORE: 0-UNK LOCOMOTION: WALK: Activity did not occur on this shift LOCOMOTION: WALK - SCORE: 0-UNK LOCOMOTION: WHEELCHAIR: LOCOMOTION: WHEELCHAIR - STEP 1: Does the patient need help to go 150 feet in a wheelchair? Yes. LOCOMOTION: WHEELCHAIR - STEP 2: How much assistance does the patient need from the helper? Only supervision, cuing, or coaxing LOCOMOTION: WHEELCHAIR - SCORE: 5-SUP COMPREHENSION: COMPREHENSION: TYPE: Both COMPREHENSION - STEP 1: Does the patient require help to understand complex and abstract ideas (such as current events, finan kelley, discharge planning, medical issues, relationships, etc)? Yes. COMPREHENSION - STEP 2: Does the patient require help to understand questions or statements about basic needs or ideas (such as hunger, thirst, sleep, safety, daily schedule, room location, or discomfort) half or more of the t eric? No. COMPREHENSION - STEP 3: How often does the patient need help to understand directions and conversation about basic needs? Les s than 10% of the time COMPREHENSION - SCORE: 5-SUP EXPRESSION EXPRESSION: TYPE: Both EXPRESSION - STEP 1: Does the patient require help expressing complex and abstract ideas (such as current events, finances , discharge planning, medical issues, relationships, etc)? Yes. EXPRESSION - STEP 2: Does the patient require help to express basic necessities or ideas (such as hunger, thirst, sleep, s afety, daily schedule, room location, or discomfort) half or more of the time? No. EXPRESSION - STEP 3: How often does the patient need help to express directions and conversation about basic needs? Less t hernandez 10% of the time EXPRESSION - SCORE: 5-SUP SOCIAL INTERACTION: SOCIAL INTERACTION - STEP 1: Does the patient require a helper to interact with others in social and therapeutic situations? No. SOCIAL INTERACTION - STEP 2: Does the patient need extra time in social situations, OR does s/he interact with staff, other patien ts, and family members ONLY in structured environments, OR does s/he require medication for social in teraction? Yes, patient needs extra time SOCIAL INTERACTION - SCORE: 6-DARLING PROBLEM SOLVING: PROBLEM SOLVING - STEP 1: Does the patient need help to solve complex problems such as managing a checking account or confronti ng interpersonal problems? Yes. PROBLEM SOLVING - STEP 2: Does the patient solve basic routine problems half or more of the time? Yes. PROBLEM SOLVING - STEP 3: How often does the patient need help to solve basic routine problems? Less than 10% of the time PROBLEM SOLVING - SCORE: 5-SUP MEMORY: MEMORY - STEP 1: Does the patient need help to remember frequently encountered people, daily routines, and executing r equests? Yes. MEMORY - STEP 2: How often does the patient need help to remember frequently encountered people, daily routines, and e xecuting requests? Less than 10% of the time MEMORY - SCORE: 5-SUP SIGNATURE PANEL: The following modified sections: Eating - Score, Grooming - Score, Bathing - Score, Dressing - Upper Body - Score, Dressing - Lower Body - Score, Toileting - Score, Bladder Management - Score, Bowel Man agement - Score, Transfers: Bed, Chair, Wheelchair - Score, Transfers: Toilet - Score, Transfers: Leona wer - Score, Transfers: Tub - Score, Locomotion: Walk - Score, Locomotion: Wheelchair - Score, Compre hension - Score, Expression - Score, Social Interaction - Score, Problem Solving - Score, Memory - Sc ore were [electronically] signed by Zack [email or web address] on TueDec 16 2017 15:23:05 T-0500 (Centra l Daylight Time)
--- NOTE | 2017-12-16 17:45 | P.PN ---
Date of Service: 12/16/17 (POD# 3) S: PATIENT COMFORTABLE IN BED. INDICATES ELEVATION OF THE LEFT KNEE SUGGESTED BY THERAPIST HAS DRAMATICALLY REDUCED, NEARLY ELIMINATED HER DISCOMFORT. O: VSS, HGB 10.8 STABLE, PAIN 4,0,0,7,7,0/10 TODAY. NV EXAM INTACT. BANDAGE CLEAN, DRY AND INTACT. A: OPERATIVE PAIN DECREASING, WAS MORE THAN EXPECTED BUT X-RAYS SHOW NO PROBLEMS. P: CONTINUE MOBILIZATION TDWB LLE.
[2017-12-16] MEDS: TRAVOPROST 0.004% EACH EYE SCH (20:09)
[2017-12-16] MEDS: PROMOD 30 ML DOSE PO SCH (20:10)
--- NOTE | 2017-12-17 04:17 | FAST ---
SHIFT START DATE/TIME: 12/16/2017 19:00 (CDT) SHIFT END DATE/TIME: 12/17/2017 07:00 (CDT) NAME KYLIE CASE DATE OF : 1940 DATE OF ADMISSION: 12/15/2017 13:36 (CDT) PHONE: AGE: 77 [facility]# [id number] GENDER: Female ENCOUNTER PHYSICIAN: Dr. Maximiliano Bernal M.D. ADMISSION DIAGNOSIS: - Orthopaedic Disorders 08 - Unilateral Hip Fracture (08.11) Impacted left subcapital femoral neck fracture. EATING: EATING - STEP 1: Does the patient require assistance when eating? Yes. EATING - STEP 2: Does the patient require the assistance of a helper? Yes. EATING - STEP 3: Does the patient perform half or more of the eating tasks? Yes. EATING - STEP 4: Does the patient need only supervision, cuing, coaxing OR help to apply an orthosis OR help to cut fo od, open containers, pour liquids, or butter bread? Yes. EATING - SCORE: 5-SUP GROOMING: Activity did not occur on this shift GROOMING - SCORE: 0-UNK BATHING: Activity did not occur on this shift BATHING - SCORE: 0-UNK DRESSING - UPPER BODY: Activity did not occur on this shift ARTICLES SCORE Total number of steps: 0 DRESSING - UPPER BODY - SCORE: 0-UNK DRESSING - LOWER BODY: Activity did not occur on this shift ARTICLES SCORE Total number of steps: 0 DRESSING - LOWER BODY - SCORE: 0-UNK TOILETING: TOILETING - STEP 1: Does the patient require assistance with toileting? Yes. TOILETING - STEP 2: Does the patient require the assistance of a helper? Yes. TOILETING - STEP 3: How much assistance does the patient require from the helper? Hands-on assistance from the helper TOILETING - STEP 4: Of the 3 tasks: 1) Adjusting clothing prior to use, 2) Cleansing of perineal area, 3) Adjusting clot joel after use; How many tasks does the patient perform WITHOUT assistance of the helper? No tasks; h elper performs all three tasks TOILETING - SCORE: 1-DEP BLADDER MANAGEMENT: BLADDER MANAGEMENT - STEP 1: Does the patient control the bladder completely and intentionally without equipment or devices or med ications, and is always continent? No. BLADDER MANAGEMENT - STEP 2: Does the patient require the assistance of a helper? Yes. BLADDER MANAGEMENT - STEP 3: How much assistance does the patient require from the helper? Patient requires contact assistance fro m the helper BLADDER MANAGEMENT - STEP 4: How much contact assistance does the patient require from the helper? Patient requires minimal assist ance to maintain an external device - by positioning, and the patient performs 75% or more of bladder management tasks, while the helper provides less than 25% of the assistance to position patient on / off bedpan BLADDER MANAGEMENT - SCORE: 4-MIN BLADDER MANAGEMENT - FREQUENCY OF ACCIDENTS: BLADDER MANAGEMENT(FA) - STEP 1: How many accidents has the patient had during the current shift? 0 BOWEL MANAGEMENT: Activity did not occur on this shift BOWEL MANAGEMENT - SCORE: 7-IND TRANSFERS: BED, CHAIR, WHEELCHAIR: TRANSFERS: BED, CHAIR, WHEELCHAIR - STEP 1: Does the patient require assistance with bed, chair, or wheelchair transfers? Yes. TRANSFERS: BED, CHAIR, WHEELCHAIR - STEP 2: Does the patient require the assistance of a helper? Yes. TRANSFERS: BED, CHAIR, WHEELCHAIR - STEP 3: How much assistance does the patient require from the helper? Lifting of the legs TRANSFERS: BED, CHAIR, WHEELCHAIR - STEP 4: How many legs does the patient require the helper to lift? both legs TRANSFERS: BED, CHAIR, WHEELCHAIR - SCORE: 3-MOD TRANSFERS: TOILET: TRANSFERS: TOILET - STEP 1: Does the patient require assistance with toilet transfers? Yes. TRANSFERS: TOILET - STEP 2: Does the patient require the assistance of a helper? Yes. TRANSFERS: TOILET - STEP 3: How much assistance does the patient require from the helper? Patient performs half or more of the tr ansferring tasks TRANSFERS: TOILET - STEP 4: Does the patient need only incidental help such as contact guard or steadying during toilet transfer? Yes. TRANSFERS: TOILET - SCORE: 4-MIN TRANSFERS: SHOWER: Activity did not occur on this shift TRANSFERS: SHOWER - SCORE: 0-UNK TRANSFERS: TUB: Activity did not occur on this shift TRANSFERS: TUB - SCORE: 0-UNK LOCOMOTION: WALK: Activity did not occur on this shift LOCOMOTION: WALK - SCORE: 0-UNK LOCOMOTION: WHEELCHAIR: Activity did not occur on this shift LOCOMOTION: WHEELCHAIR - SCORE: 0-UNK COMPREHENSION: COMPREHENSION: TYPE: Both COMPREHENSION - STEP 1: Does the patient require help to understand complex and abstract ideas (such as current events, finan kelley, discharge planning, medical issues, relationships, etc)? No. COMPREHENSION - STEP 2: Does the patient need extra time, require an assistive device (such as glasses, hearing aids, or an a ugmentative communication system), OR does s/he have mild difficulty expressing complex and abstract ideas (including mild dysarthria or mild word-finding problems)? Yes. COMPREHENSION - SCORE: 6-DARLING EXPRESSION EXPRESSION: TYPE: Both EXPRESSION - STEP 1: Does the patient require help expressing complex and abstract ideas (such as current events, finances , discharge planning, medical issues, relationships, etc)? No. EXPRESSION - STEP 2: Does the patient need extra time, require an assistive device (such as augmentive communication syste m or a communication board), OR does s/he have mild difficulty expressing complex and abstract ideas (including mild dysarthria or mild word-find problems)? No. EXPRESSION - SCORE: 7-IND SOCIAL INTERACTION: SOCIAL INTERACTION - STEP 1: Does the patient require a helper to interact with others in social and therapeutic situations? No. SOCIAL INTERACTION - STEP 2: Does the patient need extra time in social situations, OR does s/he interact with staff, other patien ts, and family members ONLY in structured environments, OR does s/he require medication for social in teraction? Yes, patient requires medication for social interaction SOCIAL INTERACTION - SCORE: 6-DARLING PROBLEM SOLVING: PROBLEM SOLVING - STEP 1: Does the patient need help to solve complex problems such as managing a checking account or confronti ng interpersonal problems? No. PROBLEM SOLVING - STEP 2: Does the patient require extra time to make decisions or solve problems, OR does s/he have slight dif ficulty reading, initiating, or self-correcting in unfamiliar situations? Yes, patient needs extra ti me. PROBLEM SOLVING - SCORE: 6-DARLING MEMORY: MEMORY - STEP 1: Does the patient need help to remember frequently encountered people, daily routines, and executing r equests? No. MEMORY - STEP 2: Does the patient have slight difficulty recognizing frequently encountered people, daily routines, or executing requests without the need for repetition or using self-initiated or environmental cues to remember? Yes. MEMORY - SCORE: 6-DARLING SIGNATURE PANEL: The following modified sections: Eating - Score, Grooming - Score, Bathing - Score, Dressing - Upper Body - Score, Dressing - Lower Body - Score, Toileting - Score, Bladder Management - Score, Bowel Man agement - Score, Transfers: Bed, Chair, Wheelchair - Score, Transfers: Toilet - Score, Transfers: Leona wer - Score, Transfers: Tub - Score, Locomotion: Walk - Score, Locomotion: Wheelchair - Score, Compre hension - Score, Expression - Score, Social Interaction - Score, Problem Solving - Score, Memory - Sc ore were [electronically] signed by Zack [email or web address] on Sat Dec 17 2017 03:19:31 GMT-0500 ( Central Daylight Time)
[2017-12-17] MEDS: HYDROCODONE/APAP 7.5/325 MG TAB PO PRN ×4 (05:25→22:07)
[2017-12-17] MEDS: [UNRECOGNIZED DRUG - OTHER] EACH EYE SCH (08:13)
[2017-12-17] MEDS: FE SULF/FA/VIT B COMP & C TAB PO SCH (08:14)
[2017-12-17] MEDS: AMLODIPINE 5 MG TAB PO SCH (08:14)
[2017-12-17] MEDS: RIVAROXABAN 10 MG TABLET PO SCH (08:14)
[2017-12-17] MEDS: AMOX/K CLAV 500 MG TAB PO SCH ×2 (08:14→20:07)
[2017-12-17] MEDS: PROMOD 30 ML DOSE PO SCH ×2 (08:15→20:07)
[2017-12-17] MEDS ORDERED: DOCUSATE NA 100 MG CAP PO PRN (08:42)
--- NOTE | 2017-12-17 11:39 | FAST ---
SHIFT START DATE/TIME: 12/17/2017 07:00 (CDT) SHIFT END DATE/TIME: 12/17/2017 19:00 (CDT) NAME KYLIE CASE DATE OF : 1940 DATE OF ADMISSION: 12/15/2017 13:36 (CDT) PHONE: AGE: 77 N# [id number] GENDER: Female ENCOUNTER PHYSICIAN: Dr. Maximiliano Bernal M.D. ADMISSION DIAGNOSIS: - Orthopaedic Disorders 08 - Unilateral Hip Fracture (08.11) Impacted left subcapital femoral neck fracture. EATING: EATING - STEP 1: Does the patient require assistance when eating? Yes. EATING - STEP 2: Does the patient require the assistance of a helper? Yes. EATING - STEP 3: Does the patient perform half or more of the eating tasks? Yes. EATING - STEP 4: Does the patient need only supervision, cuing, coaxing OR help to apply an orthosis OR help to cut fo od, open containers, pour liquids, or butter bread? Yes. EATING - SCORE: 5-SUP GROOMING: Comb/brush hair Oral care Wash, rinse, and dry face Wash, rinse, and dry hands GROOMING - STEP 1: Does the patient require assistance when grooming? Yes. GROOMING - STEP 2: Does the patient require the assistance of a helper? No. The patient only requires an assistive devic e, OR takes more than reasonable time to groom, OR there is a concern for safety as the patient groom s GROOMING - SCORE: 6-DARLING BATHING: Activity did not occur on this shift BATHING - SCORE: 0-UNK DRESSING - UPPER BODY: T-shirt/pullover shirt (four steps) ARTICLES SCORE Total number of steps: 4 DRESSING - UPPER BODY - STEP 1: Does the patient require help when dressing above the waist? Yes. DRESSING - UPPER BODY - STEP 2: Does the patient require the assistance of a helper? Yes. DRESSING - UPPER BODY - STEP 3: Does the helper touch the patient while dressing? No. DRESSING - UPPER BODY - SCORE: 5-SUP DRESSING - LOWER BODY: Elastic waist pants (three steps) Slip-on shoe - Left foot (one step) Slip-on shoe - Right foot (one step) Underwear (three steps) ARTICLES SCORE Total number of steps: 8 DRESSING - LOWER BODY - STEP 1: Does the patient require help when dressing below the waist? Yes. DRESSING - LOWER BODY - STEP 2: Does the patient require the assistance of a helper? Yes. DRESSING - LOWER BODY - STEP 3: Does the helper touch the patient while dressing? Yes. DRESSING - LOWER BODY - STEP 4: How many of the total steps does the patient complete on his/her own? 5 DRESSING - LOWER BODY - SCORE: 3-MOD TOILETING: TOILETING - STEP 1: Does the patient require assistance with toileting? Yes. TOILETING - STEP 2: Does the patient require the assistance of a helper? Yes. TOILETING - STEP 3: How much assistance does the patient require from the helper? Only supervision TOILETING - SCORE: 5-SUP BLADDER MANAGEMENT: BLADDER MANAGEMENT - STEP 1: Does the patient control the bladder completely and intentionally without equipment or devices or med ications, and is always continent? Yes. BLADDER MANAGEMENT - SCORE: 7-IND BLADDER MANAGEMENT - FREQUENCY OF ACCIDENTS: BLADDER MANAGEMENT(FA) - STEP 1: How many accidents has the patient had during the current shift? 0 BOWEL MANAGEMENT: BOWEL MANAGEMENT - STEP 1: Does the patient control bowels completely and intentionally without equipment devices or medications AND is always continent? Yes. BOWEL MANAGEMENT - SCORE: 7-IND BOWEL MANAGEMENT - FREQUENCY OF ACCIDENTS: BOWEL MANAGEMENT(FA) - STEP 1: How many accidents has the patient had during the current shift? 0 TRANSFERS: BED, CHAIR, WHEELCHAIR: TRANSFERS: BED, CHAIR, WHEELCHAIR - STEP 1: Does the patient require assistance with bed, chair, or wheelchair transfers? Yes. TRANSFERS: BED, CHAIR, WHEELCHAIR - STEP 2: Does the patient require the assistance of a helper? Yes. TRANSFERS: BED, CHAIR, WHEELCHAIR - STEP 3: How much assistance does the patient require from the helper? Lifting of the legs TRANSFERS: BED, CHAIR, WHEELCHAIR - STEP 4: How many legs does the patient require the helper to lift? one leg TRANSFERS: BED, CHAIR, WHEELCHAIR - SCORE: 4-MIN TRANSFERS: TOILET: TRANSFERS: TOILET - STEP 1: Does the patient require assistance with toilet transfers? Yes. TRANSFERS: TOILET - STEP 2: Does the patient require the assistance of a helper? Yes. TRANSFERS: TOILET - STEP 3: How much assistance does the patient require from the helper? Patient performs half or more of the tr ansferring tasks TRANSFERS: TOILET - STEP 4: Does the patient need only incidental help such as contact guard or steadying during toilet transfer? Yes. TRANSFERS: TOILET - SCORE: 4-MIN TRANSFERS: SHOWER: Activity did not occur on this shift TRANSFERS: SHOWER - SCORE: 0-UNK TRANSFERS: TUB: Activity did not occur on this shift TRANSFERS: TUB - SCORE: 0-UNK LOCOMOTION: WALK: Activity did not occur on this shift LOCOMOTION: WALK - SCORE: 0-UNK LOCOMOTION: WHEELCHAIR: Activity did not occur on this shift LOCOMOTION: WHEELCHAIR - STEP 1: Does the patient need help to go 150 feet in a wheelchair? Yes. LOCOMOTION: WHEELCHAIR - STEP 2: How much assistance does the patient need from the helper? Only supervision, cuing, or coaxing COMPREHENSION: COMPREHENSION - STEP 1: Does the patient require help to understand complex and abstract ideas (such as current events, finan kelley, discharge planning, medical issues, relationships, etc)? No. COMPREHENSION - STEP 2: Does the patient need extra time, require an assistive device (such as glasses, hearing aids, or an a ugmentative communication system), OR does s/he have mild difficulty expressing complex and abstract ideas (including mild dysarthria or mild word-finding problems)? Yes. COMPREHENSION - SCORE: 6-DARLING EXPRESSION EXPRESSION: TYPE: Both EXPRESSION - STEP 1: Does the patient require help expressing complex and abstract ideas (such as current events, finances , discharge planning, medical issues, relationships, etc)? No. EXPRESSION - STEP 2: Does the patient need extra time, require an assistive device (such as augmentive communication syste m or a communication board), OR does s/he have mild difficulty expressing complex and abstract ideas (including mild dysarthria or mild word-find problems)? Yes. EXPRESSION - SCORE: 6-DARLING SOCIAL INTERACTION: SOCIAL INTERACTION - STEP 1: Does the patient require a helper to interact with others in social and therapeutic situations? No. SOCIAL INTERACTION - STEP 2: Does the patient need extra time in social situations, OR does s/he interact with staff, other patien ts, and family members ONLY in structured environments, OR does s/he require medication for social in teraction? No. SOCIAL INTERACTION - SCORE: 7-IND PROBLEM SOLVING: PROBLEM SOLVING - STEP 1: Does the patient need help to solve complex problems such as managing a checking account or confronti ng interpersonal problems? Yes. PROBLEM SOLVING - STEP 2: Does the patient solve basic routine problems half or more of the time? Yes. PROBLEM SOLVING - STEP 3: How often does the patient need help to solve basic routine problems? Less than 10% of the time PROBLEM SOLVING - SCORE: 5-SUP MEMORY: MEMORY - STEP 1: Does the patient need help to remember frequently encountered people, daily routines, and executing r equests? No. MEMORY - STEP 2: Does the patient have slight difficulty recognizing frequently encountered people, daily routines, or executing requests without the need for repetition or using self-initiated or environmental cues to remember? Yes. MEMORY - SCORE: 6-DARLING SIGNATURE PANEL: The following modified sections: Eating - Score, Grooming - Score, Bathing - Score, Dressing - Upper Body - Score, Dressing - Lower Body - Score, Toileting - Score, Bladder Management - Score, Bowel Man agement - Score, Transfers: Bed, Chair, Wheelchair - Score, Transfers: Toilet - Score, Transfers: Leona wer - Score, Transfers: Tub - Score, Locomotion: Walk - Score, Locomotion: Wheelchair - Score, Compre hension - Score, Expression - Score, Social Interaction - Score, Problem Solving - Score, Memory - Sc ore were [electronically] signed by Rima Ashraf C.N.A. on Sat Dec 17 2017 10:40:35 GMT-0500 (Centra l Daylight Time)
--- NOTE | 2017-12-17 13:45 | FAST ---
ENCOUNTER DATE AND TIME: 12/17/2017 08:00 (CDT) NAME KYLIE CASE DATE OF : 1940 DATE OF ADMISSION: 12/15/2017 13:36 (CDT) PHONE: AGE: 77 N# [id number] GENDER: Female ENCOUNTER PHYSICIAN: Dr. Maximiliano Bernal M.D. ADMISSION DIAGNOSIS: - Orthopaedic Disorders 08 - Unilateral Hip Fracture (08.11) Impacted left subcapital femoral neck fracture. EATING: Activity did not occur on this shift EATING - SCORE: 0-UNK GROOMING: Activity did not occur on this shift GROOMING - SCORE: 0-UNK BATHING: Activity did not occur on this shift BATHING - SCORE: 0-UNK DRESSING - UPPER BODY: Activity did not occur on this shift ARTICLES SCORE Total number of steps: 0 DRESSING - UPPER BODY - SCORE: 0-UNK DRESSING - LOWER BODY: Activity did not occur on this shift ARTICLES SCORE Total number of steps: 0 DRESSING - LOWER BODY - SCORE: 0-UNK TOILETING: Activity did not occur on this shift TOILETING - SCORE: 0-UNK BLADDER MANAGEMENT: Activity did not occur on this shift BLADDER MANAGEMENT - SCORE: 7-IND BOWEL MANAGEMENT: Activity did not occur on this shift BOWEL MANAGEMENT - SCORE: 7-IND TRANSFERS: BED, CHAIR, WHEELCHAIR: TRANSFERS: BED, CHAIR, WHEELCHAIR - STEP 1: Does the patient require assistance with bed, chair, or wheelchair transfers? Yes. TRANSFERS: BED, CHAIR, WHEELCHAIR - STEP 2: Does the patient require the assistance of a helper? Yes. TRANSFERS: BED, CHAIR, WHEELCHAIR - STEP 3: How much assistance does the patient require from the helper? Steadying/guiding assistance TRANSFERS: BED, CHAIR, WHEELCHAIR - SCORE: 4-MIN TRANSFERS: BED, CHAIR, WHEELCHAIR - COMMENTS: Assist with trunk to sit only TRANSFERS: TOILET: Activity did not occur on this shift TRANSFERS: TOILET - SCORE: 0-UNK TRANSFERS: SHOWER: Activity did not occur on this shift TRANSFERS: SHOWER - SCORE: 0-UNK TRANSFERS: TUB: Activity did not occur on this shift TRANSFERS: TUB - SCORE: 0-UNK LOCOMOTION: WALK: Activity did not occur on this shift LOCOMOTION: WALK - SCORE: 0-UNK LOCOMOTION: WALK - COMMENTS: II bars only LOCOMOTION: WHEELCHAIR: LOCOMOTION: WHEELCHAIR - STEP 1: Does the patient need help to go 150 feet in a wheelchair? Yes. LOCOMOTION: WHEELCHAIR - STEP 2: How much assistance does the patient need from the helper? Only supervision, cuing, or coaxing LOCOMOTION: WHEELCHAIR - SCORE: 5-SUP LOCOMOTION: STAIRS: Activity did not occur on this shift LOCOMOTION: STAIRS - SCORE: 0-UNK COMPREHENSION: COMPREHENSION - SCORE: 0-UNK EXPRESSION EXPRESSION - SCORE: 0-UNK SOCIAL INTERACTION: SOCIAL INTERACTION - SCORE: 0-UNK PROBLEM SOLVING: PROBLEM SOLVING - SCORE: 0-UNK MEMORY: MEMORY - SCORE: 0-UNK SIGNATURE PANEL: The following modified sections: Transfers: Bed, Chair, Wheelchair - Score, Transfers: Bed, Chair, Wh eelchair - Comments:, Transfers: Toilet - Score, Locomotion: Walk - Score, Locomotion: Walk - Comment s:, Locomotion: Wheelchair - Score, Locomotion: Stairs - Score were [electronically] signed by Tonya Seay PTA on Sat Dec 17 2017 12:46:54 GMT-0500 (Central Daylight Time)
[2017-12-17] MEDS: TRAVOPROST 0.004% EACH EYE SCH (20:07)
[2017-12-18] MEDS: PROMOD 30 ML DOSE PO SCH ×2 (08:00→19:16)
[2017-12-18] MEDS: [UNRECOGNIZED DRUG - OTHER] EACH EYE SCH (09:24)
[2017-12-18] MEDS: AMLODIPINE 5 MG TAB PO SCH (09:25)
[2017-12-18] MEDS: RIVAROXABAN 10 MG TABLET PO SCH (09:25)
[2017-12-18] MEDS: FE SULF/FA/VIT B COMP & C TAB PO SCH (09:25)
[2017-12-18] MEDS: AMOX/K CLAV 500 MG TAB PO SCH ×2 (09:25→19:16)
[2017-12-18] MEDS: DOCUSATE NA 100 MG CAP PO SCH (09:25)
[2017-12-18] MEDS: HYDROCODONE/APAP 7.5/325 MG TAB PO PRN ×3 (09:30→23:10)
[2017-12-18] MEDS: TRAVOPROST 0.004% EACH EYE SCH (20:29)
[2017-12-18] MEDS: DOCUSATE NA/SENNA CONC 1 TAB PO PRN (20:29)
--- NOTE | 2017-12-19 03:16 | FAST ---
SHIFT START DATE/TIME: 12/18/2017 19:00 (CDT) SHIFT END DATE/TIME: 12/19/2017 07:00 (CDT) NAME KYLIE CASE DATE OF : 1940 DATE OF ADMISSION: 12/15/2017 13:36 (CDT) PHONE: AGE: 77 N# [id number] GENDER: Female ENCOUNTER PHYSICIAN: Dr. Maximiliano Bernal M.D. ADMISSION DIAGNOSIS: - Orthopaedic Disorders 08 - Unilateral Hip Fracture (08.11) Impacted left subcapital femoral neck fracture. EATING: Activity did not occur on this shift EATING - SCORE: 0-UNK GROOMING: Wash, rinse, and dry hands GROOMING - STEP 1: Does the patient require assistance when grooming? Yes. GROOMING - STEP 2: Does the patient require the assistance of a helper? Yes. GROOMING - STEP 3: How much assistance does the patient require from the helper? Only prior equipment preparation/set up from the helper GROOMING - SCORE: 5-SUP BATHING: Activity did not occur on this shift BATHING - SCORE: 0-UNK DRESSING - UPPER BODY: Activity did not occur on this shift ARTICLES SCORE Total number of steps: 0 DRESSING - UPPER BODY - SCORE: 0-UNK DRESSING - LOWER BODY: Activity did not occur on this shift ARTICLES SCORE Total number of steps: 0 DRESSING - LOWER BODY - SCORE: 0-UNK TOILETING: TOILETING - STEP 1: Does the patient require assistance with toileting? Yes. TOILETING - STEP 2: Does the patient require the assistance of a helper? Yes. TOILETING - STEP 3: How much assistance does the patient require from the helper? Hands-on assistance from the helper TOILETING - STEP 4: Of the 3 tasks: 1) Adjusting clothing prior to use, 2) Cleansing of perineal area, 3) Adjusting clot joel after use; How many tasks does the patient perform WITHOUT assistance of the helper? Three tasks with steadying assistance from the helper TOILETING - SCORE: 4-MIN BLADDER MANAGEMENT: BLADDER MANAGEMENT - STEP 1: Does the patient control the bladder completely and intentionally without equipment or devices or med ications, and is always continent? No. BLADDER MANAGEMENT - STEP 2: Does the patient require the assistance of a helper? Yes. BLADDER MANAGEMENT - STEP 3: How much assistance does the patient require from the helper? Patient requires contact assistance fro m the helper BLADDER MANAGEMENT - STEP 4: How much contact assistance does the patient require from the helper? Patient requires minimal assist ance to maintain an external device - by positioning, and the patient performs 75% or more of bladder management tasks, while the helper provides less than 25% of the assistance to position patient on / off bedpan BLADDER MANAGEMENT - SCORE: 4-MIN BOWEL MANAGEMENT: Activity did not occur on this shift BOWEL MANAGEMENT - SCORE: 7-IND TRANSFERS: BED, CHAIR, WHEELCHAIR: TRANSFERS: BED, CHAIR, WHEELCHAIR - STEP 1: Does the patient require assistance with bed, chair, or wheelchair transfers? Yes. TRANSFERS: BED, CHAIR, WHEELCHAIR - STEP 2: Does the patient require the assistance of a helper? Yes. TRANSFERS: BED, CHAIR, WHEELCHAIR - STEP 3: How much assistance does the patient require from the helper? Lifting of the legs TRANSFERS: BED, CHAIR, WHEELCHAIR - STEP 4: How many legs does the patient require the helper to lift? both legs TRANSFERS: BED, CHAIR, WHEELCHAIR - SCORE: 3-MOD TRANSFERS: TOILET: TRANSFERS: TOILET - STEP 1: Does the patient require assistance with toilet transfers? Yes. TRANSFERS: TOILET - STEP 2: Does the patient require the assistance of a helper? Yes. TRANSFERS: TOILET - STEP 3: How much assistance does the patient require from the helper? Patient performs half or more of the tr ansferring tasks TRANSFERS: TOILET - STEP 4: Does the patient need only incidental help such as contact guard or steadying during toilet transfer? No. Patient needs more than incidental help TRANSFERS: TOILET - SCORE: 3-MOD TRANSFERS: SHOWER: Activity did not occur on this shift TRANSFERS: SHOWER - SCORE: 0-UNK TRANSFERS: TUB: Activity did not occur on this shift TRANSFERS: TUB - SCORE: 0-UNK LOCOMOTION: WALK: Activity did not occur on this shift LOCOMOTION: WALK - SCORE: 0-UNK LOCOMOTION: WHEELCHAIR: Activity did not occur on this shift LOCOMOTION: WHEELCHAIR - SCORE: 0-UNK COMPREHENSION: COMPREHENSION: TYPE: Both COMPREHENSION - STEP 1: Does the patient require help to understand complex and abstract ideas (such as current events, finan kelley, discharge planning, medical issues, relationships, etc)? No. COMPREHENSION - STEP 2: Does the patient need extra time, require an assistive device (such as glasses, hearing aids, or an a ugmentative communication system), OR does s/he have mild difficulty expressing complex and abstract ideas (including mild dysarthria or mild word-finding problems)? Yes. COMPREHENSION - SCORE: 6-DARLING EXPRESSION EXPRESSION: TYPE: Both EXPRESSION - STEP 1: Does the patient require help expressing complex and abstract ideas (such as current events, finances , discharge planning, medical issues, relationships, etc)? No. EXPRESSION - STEP 2: Does the patient need extra time, require an assistive device (such as augmentive communication syste m or a communication board), OR does s/he have mild difficulty expressing complex and abstract ideas (including mild dysarthria or mild word-find problems)? Yes. EXPRESSION - SCORE: 6-DARLING SOCIAL INTERACTION: SOCIAL INTERACTION - STEP 1: Does the patient require a helper to interact with others in social and therapeutic situations? No. SOCIAL INTERACTION - STEP 2: Does the patient need extra time in social situations, OR does s/he interact with staff, other patien ts, and family members ONLY in structured environments, OR does s/he require medication for social in teraction? Yes, patient needs extra time SOCIAL INTERACTION - SCORE: 6-DARLING PROBLEM SOLVING: PROBLEM SOLVING - STEP 1: Does the patient need help to solve complex problems such as managing a checking account or confronti ng interpersonal problems? No. PROBLEM SOLVING - STEP 2: Does the patient require extra time to make decisions or solve problems, OR does s/he have slight dif ficulty reading, initiating, or self-correcting in unfamiliar situations? Yes, patient needs extra ti me. PROBLEM SOLVING - SCORE: 6-DARLING MEMORY: MEMORY - STEP 1: Does the patient need help to remember frequently encountered people, daily routines, and executing r equests? No. MEMORY - STEP 2: Does the patient have slight difficulty recognizing frequently encountered people, daily routines, or executing requests without the need for repetition or using self-initiated or environmental cues to remember? Yes. MEMORY - SCORE: 6-DARLING SIGNATURE PANEL: The following modified sections: Eating - Score, Grooming - Score, Bathing - Score, Dressing - Upper Body - Score, Dressing - Lower Body - Score, Toileting - Score, Bladder Management - Score, Bowel Man agement - Score, Transfers: Bed, Chair, Wheelchair - Score, Transfers: Toilet - Score, Transfers: Leona wer - Score, Transfers: Tub - Score, Locomotion: Walk - Score, Locomotion: Wheelchair - Score, Compre hension - Score, Expression - Score, Social Interaction - Score, Problem Solving - Score, Memory - Sc ore were [electronically] signed by Peggy Montoya CNA on TueDec 19 2017 02:18:21 GMT-0500 (Central Daylight Time)
[2017-12-19] MEDS: PROMOD 30 ML DOSE PO SCH ×2 (08:00→19:32)
[2017-12-19] MEDS: RIVAROXABAN 10 MG TABLET PO SCH (08:38)
[2017-12-19] MEDS: AMOX/K CLAV 500 MG TAB PO SCH ×2 (08:38→19:33)
[2017-12-19] MEDS: FE SULF/FA/VIT B COMP & C TAB PO SCH (08:38)
[2017-12-19] MEDS: AMLODIPINE 5 MG TAB PO SCH (08:38)
[2017-12-19] MEDS: [UNRECOGNIZED DRUG - OTHER] EACH EYE SCH (08:38)
[2017-12-19] MEDS: DOCUSATE NA 100 MG CAP PO SCH (08:38)
[2017-12-19] MEDS: HYDROCODONE/APAP 7.5/325 MG TAB PO PRN ×3 (08:39→19:33)
--- NOTE | 2017-12-19 10:20 | FAST ---
SHIFT START DATE/TIME: 12/19/2017 07:00 (CDT) SHIFT END DATE/TIME: 12/19/2017 19:00 (CDT) NAME KYLIE CASE DATE OF : 1940 DATE OF ADMISSION: 12/15/2017 13:36 (CDT) PHONE: AGE: 77 N# [id number] GENDER: Female ENCOUNTER PHYSICIAN: Dr. Maximiliano Bernal M.D. ADMISSION DIAGNOSIS: - Orthopaedic Disorders 08 - Unilateral Hip Fracture (08.11) Impacted left subcapital femoral neck fracture. EATING: EATING - STEP 1: Does the patient require assistance when eating? Yes. EATING - STEP 2: Does the patient require the assistance of a helper? No, patient only requires an assistive device, O R s/he takes more than reasonable time to eat, OR there is a safety concern, OR s/he requires modifie d food consistency EATING - SCORE: 6-DARLING GROOMING: Comb/brush hair Oral care Wash, rinse, and dry face Wash, rinse, and dry hands GROOMING - STEP 1: Does the patient require assistance when grooming? Yes. GROOMING - STEP 2: Does the patient require the assistance of a helper? No. The patient only requires an assistive devic e, OR takes more than reasonable time to groom, OR there is a concern for safety as the patient groom s GROOMING - SCORE: 6-DARLING BATHING: Activity did not occur on this shift BATHING - SCORE: 0-UNK DRESSING - UPPER BODY: T-shirt/pullover shirt (four steps) ARTICLES SCORE Total number of steps: 4 DRESSING - UPPER BODY - STEP 1: Does the patient require help when dressing above the waist? Yes. DRESSING - UPPER BODY - STEP 2: Does the patient require the assistance of a helper? Yes. DRESSING - UPPER BODY - STEP 3: Does the helper touch the patient while dressing? No. DRESSING - UPPER BODY - SCORE: 5-SUP DRESSING - LOWER BODY: Elastic waist pants (three steps) ARTICLES SCORE Total number of steps: 3 DRESSING - LOWER BODY - STEP 1: Does the patient require help when dressing below the waist? Yes. DRESSING - LOWER BODY - STEP 2: Does the patient require the assistance of a helper? Yes. DRESSING - LOWER BODY - STEP 3: Does the helper touch the patient while dressing? Yes. DRESSING - LOWER BODY - STEP 4: How many of the total steps does the patient complete on his/her own? 2 DRESSING - LOWER BODY - SCORE: 3-MOD TOILETING: TOILETING - STEP 1: Does the patient require assistance with toileting? Yes. TOILETING - STEP 2: Does the patient require the assistance of a helper? Yes. TOILETING - STEP 3: How much assistance does the patient require from the helper? Hands-on assistance from the helper TOILETING - STEP 4: Of the 3 tasks: 1) Adjusting clothing prior to use, 2) Cleansing of perineal area, 3) Adjusting clot joel after use; How many tasks does the patient perform WITHOUT assistance of the helper? Two tasks TOILETING - SCORE: 3-MOD BLADDER MANAGEMENT: BLADDER MANAGEMENT - STEP 1: Does the patient control the bladder completely and intentionally without equipment or devices or med ications, and is always continent? No. BLADDER MANAGEMENT - STEP 2: Does the patient require the assistance of a helper? No, patient requires and independently uses an a ssistive device, such as a urinal, bedpan, bedside commode, catheter, absorbent pad, or collecting de vice BLADDER MANAGEMENT - SCORE: 6-DARLING BOWEL MANAGEMENT: Activity did not occur on this shift BOWEL MANAGEMENT - SCORE: 7-IND TRANSFERS: BED, CHAIR, WHEELCHAIR: TRANSFERS: BED, CHAIR, WHEELCHAIR - STEP 1: Does the patient require assistance with bed, chair, or wheelchair transfers? Yes. TRANSFERS: BED, CHAIR, WHEELCHAIR - STEP 2: Does the patient require the assistance of a helper? Yes. TRANSFERS: BED, CHAIR, WHEELCHAIR - STEP 3: How much assistance does the patient require from the helper? Lifting of the legs TRANSFERS: BED, CHAIR, WHEELCHAIR - STEP 4: How many legs does the patient require the helper to lift? both legs TRANSFERS: BED, CHAIR, WHEELCHAIR - SCORE: 3-MOD TRANSFERS: TOILET: TRANSFERS: TOILET - STEP 1: Does the patient require assistance with toilet transfers? Yes. TRANSFERS: TOILET - STEP 2: Does the patient require the assistance of a helper? Yes. TRANSFERS: TOILET - STEP 3: How much assistance does the patient require from the helper? Patient performs half or more of the tr ansferring tasks TRANSFERS: TOILET - STEP 4: Does the patient need only incidental help such as contact guard or steadying during toilet transfer? Yes. TRANSFERS: TOILET - SCORE: 4-MIN TRANSFERS: SHOWER: Activity did not occur on this shift TRANSFERS: SHOWER - SCORE: 0-UNK TRANSFERS: TUB: Activity did not occur on this shift TRANSFERS: TUB - SCORE: 0-UNK LOCOMOTION: WALK: Activity did not occur on this shift LOCOMOTION: WALK - SCORE: 0-UNK LOCOMOTION: WHEELCHAIR: Activity did not occur on this shift LOCOMOTION: WHEELCHAIR - SCORE: 0-UNK COMPREHENSION: COMPREHENSION - SCORE: 0-UNK EXPRESSION EXPRESSION - SCORE: 0-UNK SOCIAL INTERACTION: SOCIAL INTERACTION - SCORE: 0-UNK PROBLEM SOLVING: PROBLEM SOLVING - SCORE: 0-UNK MEMORY: MEMORY - SCORE: 0-UNK SIGNATURE PANEL: The following modified sections: Eating - Score, Grooming - Score, Bathing - Score, Dressing - Upper Body - Score, Dressing - Lower Body - Score, Toileting - Score, Bladder Management - Score, Bowel Man agement - Score, Transfers: Bed, Chair, Wheelchair - Score, Transfers: Toilet - Score, Transfers: Leona wer - Score, Transfers: Tub - Score, Locomotion: Walk - Score, Locomotion: Wheelchair - Score, Compre hension - Score, Expression - Score, Social Interaction - Score, Problem Solving - Score, Memory - Sc ore were [electronically] signed by Billy Akbar on TueDec 19 2017 09:22:14 GMT-0500 (Central Daylight Time)
--- NOTE | 2017-12-19 17:04 | FAST ---
ENCOUNTER DATE AND TIME: 12/19/2017 08:00 (CDT) NAME KYLIE CASE DATE OF : 1940 DATE OF ADMISSION: 12/15/2017 13:36 (CDT) PHONE: AGE: 77 N# [id number] GENDER: Female ENCOUNTER PHYSICIAN: Dr. Maximiliano Bernal M.D. ADMISSION DIAGNOSIS: - Orthopaedic Disorders 08 - Unilateral Hip Fracture (08.11) Impacted left subcapital femoral neck fracture. EATING: Activity did not occur on this shift EATING - SCORE: 0-UNK GROOMING: Activity did not occur on this shift GROOMING - SCORE: 0-UNK BATHING: Activity did not occur on this shift BATHING - SCORE: 0-UNK DRESSING - UPPER BODY: Activity did not occur on this shift ARTICLES SCORE Total number of steps: 0 DRESSING - UPPER BODY - SCORE: 0-UNK DRESSING - LOWER BODY: Activity did not occur on this shift ARTICLES SCORE Total number of steps: 0 DRESSING - LOWER BODY - SCORE: 0-UNK TOILETING: Activity did not occur on this shift TOILETING - SCORE: 0-UNK BLADDER MANAGEMENT: Activity did not occur on this shift BLADDER MANAGEMENT - SCORE: 7-IND BOWEL MANAGEMENT: Activity did not occur on this shift BOWEL MANAGEMENT - SCORE: 7-IND TRANSFERS: BED, CHAIR, WHEELCHAIR: TRANSFERS: BED, CHAIR, WHEELCHAIR - STEP 1: Does the patient require assistance with bed, chair, or wheelchair transfers? Yes. TRANSFERS: BED, CHAIR, WHEELCHAIR - STEP 2: Does the patient require the assistance of a helper? Yes. TRANSFERS: BED, CHAIR, WHEELCHAIR - STEP 3: How much assistance does the patient require from the helper? Lifting of the patient TRANSFERS: BED, CHAIR, WHEELCHAIR - STEP 4: Does the helper lift the patient ONLY up? ONLY down? Up AND Down? ONLY up. TRANSFERS: BED, CHAIR, WHEELCHAIR - SCORE: 3-MOD TRANSFERS: TOILET: TRANSFERS: TOILET - STEP 1: Does the patient require assistance with toilet transfers? Yes. TRANSFERS: TOILET - STEP 2: Does the patient require the assistance of a helper? Yes. TRANSFERS: TOILET - STEP 3: How much assistance does the patient require from the helper? Patient performs half or more of the tr ansferring tasks TRANSFERS: TOILET - STEP 4: Does the patient need only incidental help such as contact guard or steadying during toilet transfer? No. Patient needs more than incidental help TRANSFERS: TOILET - SCORE: 3-MOD TRANSFERS: SHOWER: Activity did not occur on this shift TRANSFERS: SHOWER - SCORE: 0-UNK TRANSFERS: TUB: Activity did not occur on this shift TRANSFERS: TUB - SCORE: 0-UNK LOCOMOTION: WALK: Activity did not occur on this shift LOCOMOTION: WALK - SCORE: 0-UNK LOCOMOTION: WHEELCHAIR: LOCOMOTION: WHEELCHAIR - STEP 1: Does the patient need help to go 150 feet in a wheelchair? Yes. LOCOMOTION: WHEELCHAIR - STEP 2: How much assistance does the patient need from the helper? Only supervision, cuing, or coaxing LOCOMOTION: WHEELCHAIR - SCORE: 5-SUP LOCOMOTION: STAIRS: Activity did not occur on this shift LOCOMOTION: STAIRS - SCORE: 0-UNK COMPREHENSION: COMPREHENSION - SCORE: 0-UNK EXPRESSION EXPRESSION - SCORE: 0-UNK SOCIAL INTERACTION: SOCIAL INTERACTION - SCORE: 0-UNK PROBLEM SOLVING: PROBLEM SOLVING - SCORE: 0-UNK MEMORY: MEMORY - SCORE: 0-UNK SIGNATURE PANEL: The following modified sections: Transfers: Bed, Chair, Wheelchair - Score, Transfers: Toilet - Score , Locomotion: Walk - Score, Locomotion: Wheelchair - Score, Locomotion: Stairs - Score were [mervat watson] signed by Terrence Tabor PT on TueDec 19 2017 16:06:32 T-0500 (Central Daylight Time)
[2017-12-19] MEDS: DOCUSATE NA/SENNA CONC 1 TAB PO PRN (19:32)
[2017-12-19] MEDS: TRAVOPROST 0.004% EACH EYE SCH (19:33)
--- NOTE | 2017-12-20 03:58 | FAST ---
SHIFT START DATE/TIME: 12/19/2017 19:00 (CDT) SHIFT END DATE/TIME: 12/20/2017 07:00 (CDT) NAME KYLIE CASE DATE OF : 1940 DATE OF ADMISSION: 12/15/2017 13:36 (CDT) PHONE: AGE: 77 N# [id number] GENDER: Female ENCOUNTER PHYSICIAN: Dr. Maximiliano Bernal M.D. ADMISSION DIAGNOSIS: - Orthopaedic Disorders 08 - Unilateral Hip Fracture (08.11) Impacted left subcapital femoral neck fracture. EATING: EATING - STEP 1: Does the patient require assistance when eating? Yes. EATING - STEP 2: Does the patient require the assistance of a helper? No, patient only requires an assistive device, O R s/he takes more than reasonable time to eat, OR there is a safety concern, OR s/he requires modifie d food consistency EATING - SCORE: 6-DARLING GROOMING: Comb/brush hair Oral care Wash, rinse, and dry face Wash, rinse, and dry hands GROOMING - STEP 1: Does the patient require assistance when grooming? Yes. GROOMING - STEP 2: Does the patient require the assistance of a helper? No. The patient only requires an assistive devic e, OR takes more than reasonable time to groom, OR there is a concern for safety as the patient groom s GROOMING - SCORE: 6-DARLING BATHING: Activity did not occur on this shift BATHING - SCORE: 0-UNK DRESSING - UPPER BODY: Activity did not occur on this shift ARTICLES SCORE Total number of steps: 0 DRESSING - UPPER BODY - SCORE: 0-UNK DRESSING - LOWER BODY: Activity did not occur on this shift ARTICLES SCORE Total number of steps: 0 DRESSING - LOWER BODY - SCORE: 0-UNK TOILETING: TOILETING - STEP 1: Does the patient require assistance with toileting? Yes. TOILETING - STEP 2: Does the patient require the assistance of a helper? Yes. TOILETING - STEP 3: How much assistance does the patient require from the helper? Only supervision TOILETING - SCORE: 5-SUP BLADDER MANAGEMENT: BLADDER MANAGEMENT - STEP 1: Does the patient control the bladder completely and intentionally without equipment or devices or med ications, and is always continent? No. BLADDER MANAGEMENT - STEP 2: Does the patient require the assistance of a helper? Yes. BLADDER MANAGEMENT - STEP 3: How much assistance does the patient require from the helper? Only supervision, stand-by, cuing, or c oaxing BLADDER MANAGEMENT - SCORE: 5-SUP BLADDER MANAGEMENT - FREQUENCY OF ACCIDENTS: BLADDER MANAGEMENT(FA) - STEP 1: How many accidents has the patient had during the current shift? 0 BOWEL MANAGEMENT: Activity did not occur on this shift BOWEL MANAGEMENT - SCORE: 7-IND TRANSFERS: BED, CHAIR, WHEELCHAIR: TRANSFERS: BED, CHAIR, WHEELCHAIR - STEP 1: Does the patient require assistance with bed, chair, or wheelchair transfers? Yes. TRANSFERS: BED, CHAIR, WHEELCHAIR - STEP 2: Does the patient require the assistance of a helper? Yes. TRANSFERS: BED, CHAIR, WHEELCHAIR - STEP 3: How much assistance does the patient require from the helper? Lifting of the legs TRANSFERS: BED, CHAIR, WHEELCHAIR - STEP 4: How many legs does the patient require the helper to lift? both legs TRANSFERS: BED, CHAIR, WHEELCHAIR - SCORE: 3-MOD TRANSFERS: TOILET: TRANSFERS: TOILET - STEP 1: Does the patient require assistance with toilet transfers? Yes. TRANSFERS: TOILET - STEP 2: Does the patient require the assistance of a helper? Yes. TRANSFERS: TOILET - STEP 3: How much assistance does the patient require from the helper? Only supervision, cuing, coaxing, OR he lp to set out transfer equipment or to lock brakes and/or lift foot rests TRANSFERS: TOILET - SCORE: 5-SUP TRANSFERS: SHOWER: Activity did not occur on this shift TRANSFERS: SHOWER - SCORE: 0-UNK TRANSFERS: TUB: Activity did not occur on this shift TRANSFERS: TUB - SCORE: 0-UNK LOCOMOTION: WALK: Activity did not occur on this shift LOCOMOTION: WALK - SCORE: 0-UNK LOCOMOTION: WHEELCHAIR: Activity did not occur on this shift LOCOMOTION: WHEELCHAIR - SCORE: 0-UNK COMPREHENSION: COMPREHENSION: TYPE: Both COMPREHENSION - STEP 1: Does the patient require help to understand complex and abstract ideas (such as current events, finan kelley, discharge planning, medical issues, relationships, etc)? No. COMPREHENSION - STEP 2: Does the patient need extra time, require an assistive device (such as glasses, hearing aids, or an a ugmentative communication system), OR does s/he have mild difficulty expressing complex and abstract ideas (including mild dysarthria or mild word-finding problems)? Yes. COMPREHENSION - SCORE: 6-DARLING EXPRESSION EXPRESSION: TYPE: Both EXPRESSION - STEP 1: Does the patient require help expressing complex and abstract ideas (such as current events, finances , discharge planning, medical issues, relationships, etc)? No. EXPRESSION - STEP 2: Does the patient need extra time, require an assistive device (such as augmentive communication syste m or a communication board), OR does s/he have mild difficulty expressing complex and abstract ideas (including mild dysarthria or mild word-find problems)? No. EXPRESSION - SCORE: 7-IND SOCIAL INTERACTION: SOCIAL INTERACTION - STEP 1: Does the patient require a helper to interact with others in social and therapeutic situations? No. SOCIAL INTERACTION - STEP 2: Does the patient need extra time in social situations, OR does s/he interact with staff, other patien ts, and family members ONLY in structured environments, OR does s/he require medication for social in teraction? No. SOCIAL INTERACTION - SCORE: 7-IND PROBLEM SOLVING: PROBLEM SOLVING - STEP 1: Does the patient need help to solve complex problems such as managing a checking account or confronti ng interpersonal problems? No. PROBLEM SOLVING - STEP 2: Does the patient require extra time to make decisions or solve problems, OR does s/he have slight dif ficulty reading, initiating, or self-correcting in unfamiliar situations? No. PROBLEM SOLVING - SCORE: 7-IND MEMORY: MEMORY - STEP 1: Does the patient need help to remember frequently encountered people, daily routines, and executing r equests? No. MEMORY - STEP 2: Does the patient have slight difficulty recognizing frequently encountered people, daily routines, or executing requests without the need for repetition or using self-initiated or environmental cues to remember? No. MEMORY - SCORE: 7-IND SIGNATURE PANEL: The following modified sections: Eating - Score, Grooming - Score, Bathing - Score, Dressing - Upper Body - Score, Dressing - Lower Body - Score, Toileting - Score, Bladder Management - Score, Bowel Man agement - Score, Transfers: Bed, Chair, Wheelchair - Score, Transfers: Toilet - Score, Transfers: Leona wer - Score, Transfers: Tub - Score, Locomotion: Walk - Score, Locomotion: Wheelchair - Score, Compre hension - Score, Expression - Score, Social Interaction - Score, Problem Solving - Score, Memory - Sc ore were [electronically] signed by Zack GrajedaNSteven on TueDec 20 2017 03:00:23 T-0500 ( Central Daylight Time)
[2017-12-20] MEDS: HYDROCODONE/APAP 7.5/325 MG TAB PO PRN ×4 (05:31→22:49)
[2017-12-20] MEDS: [UNRECOGNIZED DRUG - OTHER] EACH EYE SCH (08:17)
[2017-12-20] MEDS: DOCUSATE NA 100 MG CAP PO SCH (08:18)
[2017-12-20] MEDS: AMLODIPINE 5 MG TAB PO SCH (08:18)
[2017-12-20] MEDS: FE SULF/FA/VIT B COMP & C TAB PO SCH (08:18)
[2017-12-20] MEDS: RIVAROXABAN 10 MG TABLET PO SCH (08:18)
[2017-12-20] MEDS: AMOX/K CLAV 500 MG TAB PO SCH ×2 (08:18→19:43)
[2017-12-20] MEDS: PROMOD 30 ML DOSE PO SCH ×2 (08:19→19:43)
--- NOTE | 2017-12-20 10:07 | FAST ---
ENCOUNTER DATE AND TIME: 12/19/2017 08:00 (CDT) NAME KYLIE CASE DATE OF : 1940 DATE OF ADMISSION: 12/15/2017 13:36 (CDT) PHONE: AGE: 77 N# [id number] GENDER: Female ENCOUNTER PHYSICIAN: Dr. Maximiliano Bernal M.D. ADMISSION DIAGNOSIS: - Orthopaedic Disorders 08 - Unilateral Hip Fracture (08.11) Impacted left subcapital femoral neck fracture. EATING: EATING - STEP 1: Does the patient require assistance when eating? No. EATING - SCORE: 7-IND GROOMING: Comb/brush hair Oral care Wash, rinse, and dry face Wash, rinse, and dry hands GROOMING - STEP 1: Does the patient require assistance when grooming? No. GROOMING - SCORE: 7-IND BATHING: Abdomen Buttocks Chest Left arm Left lower leg and foot Left upper leg Perineal area Right arm Right lower leg and foot Right upper leg BATHING - STEP 1: Does the patient require assistance when bathing? Yes. BATHING - STEP 2: Does the patient require the assistance of a helper? Yes. BATHING - STEP 3: How much assistance does the patient require from the helper? More than just incidental help BATHING - STEP 4: What percent of the body parts did the patient bathe WITHOUT the helper? Half or more of the body par ts BATHING - SCORE: 3-MOD DRESSING - UPPER BODY: T-shirt/pullover shirt (four steps) ARTICLES SCORE Total number of steps: 4 DRESSING - UPPER BODY - STEP 1: Does the patient require help when dressing above the waist? No. DRESSING - UPPER BODY - SCORE: 7-IND DRESSING - LOWER BODY: Elastic waist pants (three steps) Sock - Left foot (one step) Sock - Right foot (one step) Underwear (three steps) ARTICLES SCORE Total number of steps: 8 DRESSING - LOWER BODY - STEP 1: Does the patient require help when dressing below the waist? Yes. DRESSING - LOWER BODY - STEP 2: Does the patient require the assistance of a helper? Yes. DRESSING - LOWER BODY - STEP 3: Does the helper touch the patient while dressing? Yes. DRESSING - LOWER BODY - STEP 4: How many of the total steps does the patient complete on his/her own? 4 DRESSING - LOWER BODY - SCORE: 3-MOD TOILETING: TOILETING - STEP 1: Does the patient require assistance with toileting? Yes. TOILETING - STEP 2: Does the patient require the assistance of a helper? Yes. TOILETING - STEP 3: How much assistance does the patient require from the helper? Hands-on assistance from the helper TOILETING - STEP 4: Of the 3 tasks: 1) Adjusting clothing prior to use, 2) Cleansing of perineal area, 3) Adjusting clot joel after use; How many tasks does the patient perform WITHOUT assistance of the helper? Two tasks TOILETING - SCORE: 3-MOD BLADDER MANAGEMENT: Activity did not occur on this shift BLADDER MANAGEMENT - SCORE: 7-IND BOWEL MANAGEMENT: Activity did not occur on this shift BOWEL MANAGEMENT - SCORE: 7-IND TRANSFERS: BED, CHAIR, WHEELCHAIR: Activity did not occur on this shift TRANSFERS: BED, CHAIR, WHEELCHAIR - SCORE: 0-UNK TRANSFERS: TOILET: TRANSFERS: TOILET - STEP 1: Does the patient require assistance with toilet transfers? Yes. TRANSFERS: TOILET - STEP 2: Does the patient require the assistance of a helper? Yes. TRANSFERS: TOILET - STEP 3: How much assistance does the patient require from the helper? Patient performs half or more of the tr ansferring tasks TRANSFERS: TOILET - STEP 4: Does the patient need only incidental help such as contact guard or steadying during toilet transfer? No. Patient needs more than incidental help TRANSFERS: TOILET - SCORE: 3-MOD TRANSFERS: SHOWER: Activity did not occur on this shift TRANSFERS: SHOWER - SCORE: 0-UNK TRANSFERS: TUB: TRANSFERS: TUB - STEP 1: Does the patient require assistance with tub transfers? Yes. TRANSFERS: TUB - STEP 2: Does the patient require the assistance of a helper? Yes. TRANSFERS: TUB - STEP 3: How much assistance does the patient require from the helper? More than incidental help TRANSFERS: TUB - STEP 4: How much more help does the patient require from the helper? [place] lifts the patient either up OR do wn TRANSFERS: TUB - SCORE: 3-MOD LOCOMOTION: WALK: Activity did not occur on this shift LOCOMOTION: WALK - SCORE: 0-UNK LOCOMOTION: WHEELCHAIR: Activity did not occur on this shift LOCOMOTION: WHEELCHAIR - SCORE: 0-UNK LOCOMOTION: STAIRS: Activity did not occur on this shift LOCOMOTION: STAIRS - SCORE: 0-UNK COMPREHENSION: COMPREHENSION: TYPE: Both COMPREHENSION - STEP 1: Does the patient require help to understand complex and abstract ideas (such as current events, finan kelley, discharge planning, medical issues, relationships, etc)? No. COMPREHENSION - STEP 2: Does the patient need extra time, require an assistive device (such as glasses, hearing aids, or an a ugmentative communication system), OR does s/he have mild difficulty expressing complex and abstract ideas (including mild dysarthria or mild word-finding problems)? No. COMPREHENSION - SCORE: 7-IND EXPRESSION EXPRESSION: TYPE: Both EXPRESSION - STEP 1: Does the patient require help expressing complex and abstract ideas (such as current events, finances , discharge planning, medical issues, relationships, etc)? No. EXPRESSION - STEP 2: Does the patient need extra time, require an assistive device (such as augmentive communication syste m or a communication board), OR does s/he have mild difficulty expressing complex and abstract ideas (including mild dysarthria or mild word-find problems)? No. EXPRESSION - SCORE: 7-IND SOCIAL INTERACTION: SOCIAL INTERACTION - STEP 1: Does the patient require a helper to interact with others in social and therapeutic situations? No. SOCIAL INTERACTION - STEP 2: Does the patient need extra time in social situations, OR does s/he interact with staff, other patien ts, and family members ONLY in structured environments, OR does s/he require medication for social in teraction? No. SOCIAL INTERACTION - SCORE: 7-IND PROBLEM SOLVING: PROBLEM SOLVING - STEP 1: Does the patient need help to solve complex problems such as managing a checking account or confronti ng interpersonal problems? No. PROBLEM SOLVING - STEP 2: Does the patient require extra time to make decisions or solve problems, OR does s/he have slight dif ficulty reading, initiating, or self-correcting in unfamiliar situations? No. PROBLEM SOLVING - SCORE: 7-IND MEMORY: MEMORY - STEP 1: Does the patient need help to remember frequently encountered people, daily routines, and executing r equests? No. MEMORY - STEP 2: Does the patient have slight difficulty recognizing frequently encountered people, daily routines, or executing requests without the need for repetition or using self-initiated or environmental cues to remember? No. MEMORY - SCORE: 7-IND SIGNATURE PANEL: The following modified sections: Eating - Score, Grooming - Score, Bathing - Score, Dressing - Upper Body - Score, Dressing - Lower Body - Score, Toileting - Score, Transfers: Bed, Chair, Wheelchair - S core, Transfers: Toilet - Score, Transfers: Shower - Score, Transfers: Tub - Score, Comprehension - S core, Expression - Score, Social Interaction - Score, Problem Solving - Score, Memory - Score were [e lectronically] signed by Soraya Lopez OT on TueDec 20 2017 09:07:28 GMT-0500 (Central Daylight T eric)
--- NOTE | 2017-12-20 11:02 | FAST ---
SHIFT START DATE/TIME: 12/20/2017 07:00 (CDT) SHIFT END DATE/TIME: 12/20/2017 19:00 (CDT) NAME KYLIE CASE DATE OF : 1940 DATE OF ADMISSION: 12/15/2017 13:36 (CDT) PHONE: AGE: 77 [facility]# [id number] GENDER: Female ENCOUNTER PHYSICIAN: Dr. Maximiliano Bernal M.D. ADMISSION DIAGNOSIS: - Orthopaedic Disorders 08 - Unilateral Hip Fracture (08.11) Impacted left subcapital femoral neck fracture. EATING: EATING - STEP 1: Does the patient require assistance when eating? Yes. EATING - STEP 2: Does the patient require the assistance of a helper? No, patient only requires an assistive device, O R s/he takes more than reasonable time to eat, OR there is a safety concern, OR s/he requires modifie d food consistency EATING - SCORE: 6-DARLING GROOMING: Comb/brush hair Oral care Wash, rinse, and dry face Wash, rinse, and dry hands GROOMING - STEP 1: Does the patient require assistance when grooming? Yes. GROOMING - STEP 2: Does the patient require the assistance of a helper? Yes. GROOMING - STEP 3: How much assistance does the patient require from the helper? Only prior equipment preparation/set up from the helper GROOMING - SCORE: 5-SUP BATHING: Activity did not occur on this shift BATHING - SCORE: 0-UNK DRESSING - UPPER BODY: Activity did not occur on this shift ARTICLES SCORE Total number of steps: 0 DRESSING - UPPER BODY - SCORE: 0-UNK DRESSING - LOWER BODY: Activity did not occur on this shift ARTICLES SCORE Total number of steps: 0 DRESSING - LOWER BODY - SCORE: 0-UNK TOILETING: TOILETING - STEP 1: Does the patient require assistance with toileting? Yes. TOILETING - STEP 2: Does the patient require the assistance of a helper? Yes. TOILETING - STEP 3: How much assistance does the patient require from the helper? Hands-on assistance from the helper TOILETING - STEP 4: Of the 3 tasks: 1) Adjusting clothing prior to use, 2) Cleansing of perineal area, 3) Adjusting clot joel after use; How many tasks does the patient perform WITHOUT assistance of the helper? Two tasks TOILETING - SCORE: 3-MOD BLADDER MANAGEMENT: BLADDER MANAGEMENT - STEP 1: Does the patient control the bladder completely and intentionally without equipment or devices or med ications, and is always continent? Yes. BLADDER MANAGEMENT - SCORE: 7-IND BOWEL MANAGEMENT: Activity did not occur on this shift BOWEL MANAGEMENT - SCORE: 7-IND TRANSFERS: BED, CHAIR, WHEELCHAIR: TRANSFERS: BED, CHAIR, WHEELCHAIR - STEP 1: Does the patient require assistance with bed, chair, or wheelchair transfers? Yes. TRANSFERS: BED, CHAIR, WHEELCHAIR - STEP 2: Does the patient require the assistance of a helper? Yes. TRANSFERS: BED, CHAIR, WHEELCHAIR - STEP 3: How much assistance does the patient require from the helper? Steadying/guiding assistance TRANSFERS: BED, CHAIR, WHEELCHAIR - SCORE: 4-MIN TRANSFERS: TOILET: TRANSFERS: TOILET - STEP 1: Does the patient require assistance with toilet transfers? Yes. TRANSFERS: TOILET - STEP 2: Does the patient require the assistance of a helper? Yes. TRANSFERS: TOILET - STEP 3: How much assistance does the patient require from the helper? Patient performs half or more of the tr ansferring tasks TRANSFERS: TOILET - STEP 4: Does the patient need only incidental help such as contact guard or steadying during toilet transfer? Yes. TRANSFERS: TOILET - SCORE: 4-MIN TRANSFERS: SHOWER: Activity did not occur on this shift TRANSFERS: SHOWER - SCORE: 0-UNK TRANSFERS: TUB: Activity did not occur on this shift TRANSFERS: TUB - SCORE: 0-UNK LOCOMOTION: WALK: Activity did not occur on this shift LOCOMOTION: WALK - SCORE: 0-UNK LOCOMOTION: WHEELCHAIR: Activity did not occur on this shift LOCOMOTION: WHEELCHAIR - SCORE: 0-UNK COMPREHENSION: COMPREHENSION - SCORE: 0-UNK EXPRESSION EXPRESSION - SCORE: 0-UNK SOCIAL INTERACTION: SOCIAL INTERACTION - SCORE: 0-UNK PROBLEM SOLVING: PROBLEM SOLVING - SCORE: 0-UNK MEMORY: MEMORY - SCORE: 0-UNK SIGNATURE PANEL: The following modified sections: Eating - Score, Grooming - Score, Bathing - Score, Dressing - Upper Body - Score, Dressing - Lower Body - Score, Toileting - Score, Bladder Management - Score, Bowel Man agement - Score, Transfers: Bed, Chair, Wheelchair - Score, Transfers: Toilet - Score, Transfers: Leona wer - Score, Transfers: Tub - Score, Locomotion: Walk - Score, Locomotion: Wheelchair - Score, Compre hension - Score, Expression - Score, Social Interaction - Score, Problem Solving - Score, Memory - Sc ore were [electronically] signed by Billy Akbar on TueDec 20 2017 10:03:54 GMT-0500 (Central Daylight Time)
--- NOTE | 2017-12-20 14:06 | P.PN ---
Date of Service: 12/20/17 S: PATIENT ENCOUNTERED IN THERAPY ROOM. MAKING GOOD PROGRESS TODAY. WITNESSED STAND FROM CHAIR WITHOUT PRESSURE ON LEFT FOOT. O: VSS, PAIN MINIMAL TODAY. NV EXAM INTACT. BANDAGE CLEAN, DRY AND INTACT. A: OPERATIVE PAIN LESS ANDLESS OF AN ISSUE. P: CONTINUE MOBILIZATION T[facility] LLE.
--- NOTE | 2017-12-20 15:44 | FAST ---
ENCOUNTER DATE AND TIME: 12/20/2017 08:00 (CDT) NAME KYLIE CASE DATE OF : 1940 DATE OF ADMISSION: 12/15/2017 13:36 (CDT) PHONE: AGE: 77 N# [id number] GENDER: Female ENCOUNTER PHYSICIAN: Dr. Maximiliano Bernal M.D. ADMISSION DIAGNOSIS: - Orthopaedic Disorders 08 - Unilateral Hip Fracture (08.11) Impacted left subcapital femoral neck fracture. EATING: Activity did not occur on this shift EATING - SCORE: 0-UNK GROOMING: Activity did not occur on this shift GROOMING - SCORE: 0-UNK BATHING: Activity did not occur on this shift BATHING - SCORE: 0-UNK DRESSING - UPPER BODY: Activity did not occur on this shift ARTICLES SCORE Total number of steps: 0 DRESSING - UPPER BODY - SCORE: 0-UNK DRESSING - LOWER BODY: Activity did not occur on this shift ARTICLES SCORE Total number of steps: 0 DRESSING - LOWER BODY - SCORE: 0-UNK TOILETING: Activity did not occur on this shift TOILETING - SCORE: 0-UNK BLADDER MANAGEMENT: Activity did not occur on this shift BLADDER MANAGEMENT - SCORE: 7-IND BOWEL MANAGEMENT: Activity did not occur on this shift BOWEL MANAGEMENT - SCORE: 7-IND TRANSFERS: BED, CHAIR, WHEELCHAIR: TRANSFERS: BED, CHAIR, WHEELCHAIR - STEP 1: Does the patient require assistance with bed, chair, or wheelchair transfers? Yes. TRANSFERS: BED, CHAIR, WHEELCHAIR - STEP 2: Does the patient require the assistance of a helper? Yes. TRANSFERS: BED, CHAIR, WHEELCHAIR - STEP 3: How much assistance does the patient require from the helper? Only supervision TRANSFERS: BED, CHAIR, WHEELCHAIR - SCORE: 5-SUP TRANSFERS: TOILET: Activity did not occur on this shift TRANSFERS: TOILET - SCORE: 0-UNK TRANSFERS: SHOWER: Activity did not occur on this shift TRANSFERS: SHOWER - SCORE: 0-UNK TRANSFERS: TUB: Activity did not occur on this shift TRANSFERS: TUB - SCORE: 0-UNK LOCOMOTION: WALK: Patient walks less than 50 feet LOCOMOTION: WALK - SCORE: 1-DEP LOCOMOTION: WHEELCHAIR: LOCOMOTION: WHEELCHAIR - STEP 1: Does the patient need help to go 150 feet in a wheelchair? Yes. LOCOMOTION: WHEELCHAIR - STEP 2: How much assistance does the patient need from the helper? Only supervision, cuing, or coaxing LOCOMOTION: WHEELCHAIR - SCORE: 5-SUP LOCOMOTION: STAIRS: Activity did not occur on this shift LOCOMOTION: STAIRS - SCORE: 0-UNK COMPREHENSION: COMPREHENSION - SCORE: 0-UNK EXPRESSION EXPRESSION - SCORE: 0-UNK SOCIAL INTERACTION: SOCIAL INTERACTION - SCORE: 0-UNK PROBLEM SOLVING: PROBLEM SOLVING - SCORE: 0-UNK MEMORY: MEMORY - SCORE: 0-UNK SIGNATURE PANEL: The following modified sections: Transfers: Bed, Chair, Wheelchair - Score, Transfers: Toilet - Score , Locomotion: Walk - Score, Locomotion: Wheelchair - Score, Locomotion: Stairs - Score were [electron ically] signed by Herman Perez PTA on TueDec 20 2017 14:45:52 GMT-0500 (Central Daylight Time)
--- NOTE | 2017-12-20 16:56 | FAST ---
ENCOUNTER DATE AND TIME: 12/20/2017 08:00 (CDT) NAME KYLIE CASE DATE OF : 1940 DATE OF ADMISSION: 12/15/2017 13:36 (CDT) PHONE: AGE: 77 N# [id number] GENDER: Female ENCOUNTER PHYSICIAN: Dr. Maximiliano Bernal M.D. ADMISSION DIAGNOSIS: - Orthopaedic Disorders 08 - Unilateral Hip Fracture (08.11) Impacted left subcapital femoral neck fracture. EATING: Activity did not occur on this shift EATING - SCORE: 0-UNK GROOMING: Wash, rinse, and dry hands GROOMING - STEP 1: Does the patient require assistance when grooming? No. GROOMING - SCORE: 7-IND BATHING: Activity did not occur on this shift BATHING - SCORE: 0-UNK DRESSING - UPPER BODY: Activity did not occur on this shift ARTICLES SCORE Total number of steps: 0 DRESSING - UPPER BODY - SCORE: 0-UNK DRESSING - LOWER BODY: Activity did not occur on this shift ARTICLES SCORE Total number of steps: 0 DRESSING - LOWER BODY - SCORE: 0-UNK TOILETING: TOILETING - STEP 1: Does the patient require assistance with toileting? Yes. TOILETING - STEP 2: Does the patient require the assistance of a helper? Yes. TOILETING - STEP 3: How much assistance does the patient require from the helper? Hands-on assistance from the helper TOILETING - STEP 4: Of the 3 tasks: 1) Adjusting clothing prior to use, 2) Cleansing of perineal area, 3) Adjusting clot joel after use; How many tasks does the patient perform WITHOUT assistance of the helper? Three tasks with steadying assistance from the helper TOILETING - SCORE: 4-MIN BLADDER MANAGEMENT: Activity did not occur on this shift BLADDER MANAGEMENT - SCORE: 7-IND BOWEL MANAGEMENT: Activity did not occur on this shift BOWEL MANAGEMENT - SCORE: 7-IND TRANSFERS: BED, CHAIR, WHEELCHAIR: TRANSFERS: BED, CHAIR, WHEELCHAIR - STEP 1: Does the patient require assistance with bed, chair, or wheelchair transfers? Yes. TRANSFERS: BED, CHAIR, WHEELCHAIR - STEP 2: Does the patient require the assistance of a helper? Yes. TRANSFERS: BED, CHAIR, WHEELCHAIR - STEP 3: How much assistance does the patient require from the helper? Lifting of the patient TRANSFERS: BED, CHAIR, WHEELCHAIR - STEP 4: Does the helper lift the patient ONLY up? ONLY down? Up AND Down? ONLY up. TRANSFERS: BED, CHAIR, WHEELCHAIR - SCORE: 3-MOD TRANSFERS: TOILET: TRANSFERS: TOILET - STEP 1: Does the patient require assistance with toilet transfers? Yes. TRANSFERS: TOILET - STEP 2: Does the patient require the assistance of a helper? Yes. TRANSFERS: TOILET - STEP 3: How much assistance does the patient require from the helper? Patient performs half or more of the tr ansferring tasks TRANSFERS: TOILET - STEP 4: Does the patient need only incidental help such as contact guard or steadying during toilet transfer? Yes. TRANSFERS: TOILET - SCORE: 4-MIN TRANSFERS: SHOWER: Activity did not occur on this shift TRANSFERS: SHOWER - SCORE: 0-UNK TRANSFERS: TUB: Activity did not occur on this shift TRANSFERS: TUB - SCORE: 0-UNK LOCOMOTION: WALK: Activity did not occur on this shift LOCOMOTION: WALK - SCORE: 0-UNK LOCOMOTION: WHEELCHAIR: Activity did not occur on this shift LOCOMOTION: WHEELCHAIR - SCORE: 0-UNK LOCOMOTION: STAIRS: Activity did not occur on this shift LOCOMOTION: STAIRS - SCORE: 0-UNK COMPREHENSION: COMPREHENSION: TYPE: Visual COMPREHENSION - STEP 1: Does the patient require help to understand complex and abstract ideas (such as current events, finan kelley, discharge planning, medical issues, relationships, etc)? No. COMPREHENSION - STEP 2: Does the patient need extra time, require an assistive device (such as glasses, hearing aids, or an a ugmentative communication system), OR does s/he have mild difficulty expressing complex and abstract ideas (including mild dysarthria or mild word-finding problems)? Yes. COMPREHENSION - SCORE: 6-DARLING EXPRESSION EXPRESSION: TYPE: Non-Vocal EXPRESSION - STEP 1: Does the patient require help expressing complex and abstract ideas (such as current events, finances , discharge planning, medical issues, relationships, etc)? No. EXPRESSION - STEP 2: Does the patient need extra time, require an assistive device (such as augmentive communication syste m or a communication board), OR does s/he have mild difficulty expressing complex and abstract ideas (including mild dysarthria or mild word-find problems)? No. EXPRESSION - SCORE: 7-IND SOCIAL INTERACTION: SOCIAL INTERACTION - STEP 1: Does the patient require a helper to interact with others in social and therapeutic situations? No. SOCIAL INTERACTION - STEP 2: Does the patient need extra time in social situations, OR does s/he interact with staff, other patien ts, and family members ONLY in structured environments, OR does s/he require medication for social in teraction? No. SOCIAL INTERACTION - SCORE: 7-IND PROBLEM SOLVING: PROBLEM SOLVING - STEP 1: Does the patient need help to solve complex problems such as managing a checking account or confronti ng interpersonal problems? No. PROBLEM SOLVING - STEP 2: Does the patient require extra time to make decisions or solve problems, OR does s/he have slight dif ficulty reading, initiating, or self-correcting in unfamiliar situations? No. PROBLEM SOLVING - SCORE: 7-IND MEMORY: MEMORY - STEP 1: Does the patient need help to remember frequently encountered people, daily routines, and executing r equests? No. MEMORY - STEP 2: Does the patient have slight difficulty recognizing frequently encountered people, daily routines, or executing requests without the need for repetition or using self-initiated or environmental cues to remember? No. MEMORY - SCORE: 7-IND SIGNATURE PANEL: The following modified sections: Eating - Score, Grooming - Score, Bathing - Score, Dressing - Upper Body - Score, Dressing - Lower Body - Score, Toileting - Score, Transfers: Bed, Chair, Wheelchair - S core, Transfers: Toilet - Score, Transfers: Shower - Score, Transfers: Tub - Score, Comprehension - S core, Expression - Score, Social Interaction - Score, Problem Solving - Score, Memory - Score were [e lectronically] signed by JENNIFFER Irving on TueDec 20 2017 15:57:24 T-0500 ([facility] Time)
[2017-12-20] MEDS ORDERED: MAGNESIUM HYDROXIDE 8% 30 ML PO PRN (18:58)
[2017-12-20] MEDS: DOCUSATE NA/SENNA CONC 1 TAB PO PRN (19:43)
[2017-12-20] MEDS: TRAVOPROST 0.004% EACH EYE SCH (19:59)
--- NOTE | 2017-12-20 20:04 | R.PN ---
ENCOUNTER DATE AND TIME: 12/20/2017 19:04 (CDT) NAME KYLIE CASE DATE OF : 1940 DATE OF ADMISSION: 12/15/2017 13:36 (CDT) Impacted left subcapital femoral neck fractureCHIEF COMPLAINT: Left hip fracture. SUBJECTIVE: Pt denied any Shortness of Breath. Pt denied any depression. Ambulated 50' with minimum assistance using a rolling walker. VITAL SIGNS Temperature: 98.4 F SBP/DBP: 137/70 Pulse: 86 Resp: 18 Vital signs stable, afebrile MEDICATION ALLERGIES: Sulfa ENVIRONMENTAL ALLERGIES: None Known - Substance Allergies None Known - Other Allergies None Known NURSING: - Shower allowing shower - Skin care per protocol PRECAUTIONS: - Weight Bearing Precaution TTWB left LE ACTIVITIES OOB only with supervision THERAPIES: - Occupational Therapy Evaluate and Treat. - Physical Therapy Evaluate and Treat. PHYSICAL EXAM - Gen Alert and awake Lying in bed No apparent distress Oriented to: person, time, and place - Vital Signs Vital signs stable, afebrile - Skin No skin breakdown. Normacephalic - Eyes No abnormalities - ENMT No abnormalities - Neck No abnormalities - CVS RRR - Chest Clear - Abd Soft - GI Non distended Deferred - No abnormalities - Ext No significant edema - MSK 4+/5 weakness in left lower extremity - Neuro Mild left leg 4/5 weakness. - Psych No abnormalities ASSESSMENT: Pt. is a 77 yo Right-handed white female.On 12/12/2017 she was admitted to [facility] and [facility] emergency surgery for Impacted left subcapital femoral neck fracture (Percutaneous pin fixati on left impacted femoral neck fracture ) by DR. DORIAN EASTMAN.Pre-morbidly, Pt. was independent/mod-I in Locomotion and Self-Care; and she had good Transfers Control, Balance, Safety Awareness, Social C ognition, Sphincter Control, and Communication.Currently, she has deficits of Sphincter Control, [place] motion, Balance, Endurance, Safety Awareness, Transfers Control, and Self-Care.Pt. is now referred to [facility] for acute in-patient rehabilitation in order to maximize patient's functional independence in activities of daily living, strength, ROM, and mobility.- Rehab Goal Patient has realistic goal of being discharged at assistance level 6-Micheal to reside at Home with Fam mario alberto/Relatives. MDM/PLAN: - Anterior Hip Precaution No abduction No active extension No adduction across midline No external rotation No hip flexion >90 degrees No internal rotation - Physical Therapy Decreased range of motion - to improve, our physical therapists will perform initial evaluation of p t's status upon admission and devise an individualized program for increasing patient's Range of [place] on. Gait dysfunction - to improve, our physical therapists will perform initial evaluation of pt's statu s upon admission and devise an individualized program for Gait Training, and Wheel Chair mobility Inability to transfer - to improve, our physical therapists will perform initial evaluation of pt's status upon admission and devise an individualized program for Bed mobility Need for home safety evaluation - to improve, our physical therapists will perform initial evaluatio n of pt's status upon admission and devise an individualized program for Home Evaluation Need in caregiver upon discharge - to improve, our physical therapists will perform initial evaluati on of pt's status upon admission and devise an individualized program for Caregiver Training Edema - to improve, our physical therapists will perform initial evaluation of pt's status upon admis adalgisa and devise an individualized program for Elevation Training, and Lymphedema Therapy New precaution - to improve, our physical therapists will perform initial evaluation of pt's status upon admission and devise an individualized program for Patient precaution education Poor balance - to improve, our physical therapists will perform initial evaluation of pt's status up on admission and devise an individualized program for Balance Training Poor endurance - to improve, our physical therapists will perform initial evaluation of pt's status upon admission and devise an individualized program for Endurance Training Weakness - to improve, our physical therapists will perform initial evaluation of pt's status upon a dmission and devise an individualized program for Aquatic Therapy, Neuromuscular Reeducation, and Str engthening Achieving independence - to improve, our physical therapists will perform initial evaluation of pt's status upon admission and devise an individualized program for Community Reintegration Activities - Diet - Liquid Texture Continue Regular - Tube Feed Continue N/A - Diet Type Continue Regular - Posterior Hip Precaution No adduction across midline No external rotation No hip flexion >90 degrees No internal rotation No wheel chair propulsion - Occupational Therapy ADL deficits - to improve, our occupation therapists will perform initial evaluation of pt's status upon admission and devise an individualized program for Bathing, Bed mobility, Community Reintegratio n, Cooking, Dressing, Eating, Fine Motor Skills, Grooming, Homemaking, Kitchen Mobility, Laundry, Pat ient Education, Safety Awareness, Splinting - Positioning, Transfers(Toilet, Tub, Shower), and Wheel Chair Management Need for care professional - to improve, our occupation therapists will perform initial evaluation of pt's status upon admission and devise an individualized program for Caregiver Training Weakness - to improve, our occupation therapists will perform initial evaluation of pt's status upon admission and devise an individualized program for Aquatic Therapy, Balance, Endurance, UE ROM, and UE strengthening - Weight Bearing Precaution TTWB left LE - Skin care per protocol - Diet - Solid Texture Continue Regular - Shower allowing shower FUNCTIONAL STATUS: - Self-Care A. Eating sup B. Grooming sup C. Bathing maxA D. Dressing - Upper modA E. Dressing - Lower maxA F. Toileting maxA - Sphincter Control G. Bladder control maxA H. Bowel control maxA - Transfers Control I. Bed/Chair/Wheelchair maxA J. Toilet maxA K. Tub/Shower maxA - Locomotion L. Walk/Wheelchair (W) Dep M. Stairs ADNO - Communication N. Comprehension (B) Micheal O. Expression (B) Micheal - Social Cognition P. Social Interaction Micheal Q. Problem Solving Micheal R. Memory Micheal - Endurance Poor - Balance Poor - Safety Awareness Poor CURRENT FUNC. DEFICITS: Sphincter Control, Locomotion, Balance, Endurance, Safety Awareness, Transfers Control, and Self-Care SIGNATURE PANEL: (CDT)
--- NOTE | 2017-12-21 04:52 | FAST ---
SHIFT START DATE/TIME: 12/20/2017 19:00 (CDT) SHIFT END DATE/TIME: 12/21/2017 07:00 (CDT) NAME KYLIE CASE DATE OF : 1940 DATE OF ADMISSION: 12/15/2017 13:36 (CDT) PHONE: AGE: 77 N# [id number] GENDER: Female ENCOUNTER PHYSICIAN: Dr. Maximiliano Bernal M.D. ADMISSION DIAGNOSIS: - Orthopaedic Disorders 08 - Unilateral Hip Fracture (08.11) Impacted left subcapital femoral neck fracture. EATING: EATING - STEP 1: Does the patient require assistance when eating? Yes. EATING - STEP 2: Does the patient require the assistance of a helper? No, patient only requires an assistive device, O R s/he takes more than reasonable time to eat, OR there is a safety concern, OR s/he requires modifie d food consistency EATING - SCORE: 6-DARLING GROOMING: Comb/brush hair Oral care Wash, rinse, and dry face Wash, rinse, and dry hands GROOMING - STEP 1: Does the patient require assistance when grooming? Yes. GROOMING - STEP 2: Does the patient require the assistance of a helper? No. The patient only requires an assistive devic e, OR takes more than reasonable time to groom, OR there is a concern for safety as the patient groom s GROOMING - SCORE: 6-DARLING BATHING: Activity did not occur on this shift BATHING - SCORE: 0-UNK DRESSING - UPPER BODY: Activity did not occur on this shift ARTICLES SCORE Total number of steps: 0 DRESSING - UPPER BODY - SCORE: 0-UNK DRESSING - LOWER BODY: Activity did not occur on this shift ARTICLES SCORE Total number of steps: 0 DRESSING - LOWER BODY - SCORE: 0-UNK TOILETING: TOILETING - STEP 1: Does the patient require assistance with toileting? Yes. TOILETING - STEP 2: Does the patient require the assistance of a helper? Yes. TOILETING - STEP 3: How much assistance does the patient require from the helper? Only supervision TOILETING - SCORE: 5-SUP BLADDER MANAGEMENT: BLADDER MANAGEMENT - STEP 1: Does the patient control the bladder completely and intentionally without equipment or devices or med ications, and is always continent? No. BLADDER MANAGEMENT - STEP 2: Does the patient require the assistance of a helper? Yes. BLADDER MANAGEMENT - STEP 3: How much assistance does the patient require from the helper? Only supervision, stand-by, cuing, or c oaxing BLADDER MANAGEMENT - SCORE: 5-SUP BLADDER MANAGEMENT - FREQUENCY OF ACCIDENTS: BLADDER MANAGEMENT(FA) - STEP 1: How many accidents has the patient had during the current shift? 0 BOWEL MANAGEMENT: BOWEL MANAGEMENT - STEP 1: Does the patient control bowels completely and intentionally without equipment devices or medications AND is always continent? No. BOWEL MANAGEMENT - STEP 2: Does the patient require the assistance of a helper? Yes. BOWEL MANAGEMENT - STEP 3: How much assistance does the patient require from the helper? Patient requires supervision, stand by, cueing, coaxing, or setup of equipment - placing within reach of patient and emptying device / bedpa nd or BSC bucket - to maintain either satisfactory bowel pattern or managing an external device such as an absorbent pad, colostomy bag / ileostomy bag BOWEL MANAGEMENT - SCORE: 5-SUP BOWEL MANAGEMENT - FREQUENCY OF ACCIDENTS: BOWEL MANAGEMENT(FA) - STEP 1: How many accidents has the patient had during the current shift? 0 TRANSFERS: BED, CHAIR, WHEELCHAIR: TRANSFERS: BED, CHAIR, WHEELCHAIR - STEP 1: Does the patient require assistance with bed, chair, or wheelchair transfers? Yes. TRANSFERS: BED, CHAIR, WHEELCHAIR - STEP 2: Does the patient require the assistance of a helper? Yes. TRANSFERS: BED, CHAIR, WHEELCHAIR - STEP 3: How much assistance does the patient require from the helper? Lifting of the legs TRANSFERS: BED, CHAIR, WHEELCHAIR - STEP 4: How many legs does the patient require the helper to lift? both legs TRANSFERS: BED, CHAIR, WHEELCHAIR - SCORE: 3-MOD TRANSFERS: TOILET: TRANSFERS: TOILET - STEP 1: Does the patient require assistance with toilet transfers? Yes. TRANSFERS: TOILET - STEP 2: Does the patient require the assistance of a helper? Yes. TRANSFERS: TOILET - STEP 3: How much assistance does the patient require from the helper? Only supervision, cuing, coaxing, OR he lp to set out transfer equipment or to lock brakes and/or lift foot rests TRANSFERS: TOILET - SCORE: 5-SUP TRANSFERS: SHOWER: Activity did not occur on this shift TRANSFERS: SHOWER - SCORE: 0-UNK TRANSFERS: TUB: Activity did not occur on this shift TRANSFERS: TUB - SCORE: 0-UNK LOCOMOTION: WALK: Activity did not occur on this shift LOCOMOTION: WALK - SCORE: 0-UNK LOCOMOTION: WHEELCHAIR: Activity did not occur on this shift LOCOMOTION: WHEELCHAIR - SCORE: 0-UNK COMPREHENSION: COMPREHENSION: TYPE: Both COMPREHENSION - STEP 1: Does the patient require help to understand complex and abstract ideas (such as current events, finan kelley, discharge planning, medical issues, relationships, etc)? No. COMPREHENSION - STEP 2: Does the patient need extra time, require an assistive device (such as glasses, hearing aids, or an a ugmentative communication system), OR does s/he have mild difficulty expressing complex and abstract ideas (including mild dysarthria or mild word-finding problems)? Yes. COMPREHENSION - SCORE: 6-DARLING EXPRESSION EXPRESSION: TYPE: Both EXPRESSION - STEP 1: Does the patient require help expressing complex and abstract ideas (such as current events, finances , discharge planning, medical issues, relationships, etc)? No. EXPRESSION - STEP 2: Does the patient need extra time, require an assistive device (such as augmentive communication syste m or a communication board), OR does s/he have mild difficulty expressing complex and abstract ideas (including mild dysarthria or mild word-find problems)? No. EXPRESSION - SCORE: 7-IND SOCIAL INTERACTION: SOCIAL INTERACTION - STEP 1: Does the patient require a helper to interact with others in social and therapeutic situations? No. SOCIAL INTERACTION - STEP 2: Does the patient need extra time in social situations, OR does s/he interact with staff, other patien ts, and family members ONLY in structured environments, OR does s/he require medication for social in teraction? No. SOCIAL INTERACTION - SCORE: 7-IND PROBLEM SOLVING: PROBLEM SOLVING - STEP 1: Does the patient need help to solve complex problems such as managing a checking account or confronti ng interpersonal problems? No. PROBLEM SOLVING - STEP 2: Does the patient require extra time to make decisions or solve problems, OR does s/he have slight dif ficulty reading, initiating, or self-correcting in unfamiliar situations? No. PROBLEM SOLVING - SCORE: 7-IND MEMORY: MEMORY - STEP 1: Does the patient need help to remember frequently encountered people, daily routines, and executing r equests? No. MEMORY - STEP 2: Does the patient have slight difficulty recognizing frequently encountered people, daily routines, or executing requests without the need for repetition or using self-initiated or environmental cues to remember? No. MEMORY - SCORE: 7-IND SIGNATURE PANEL: The following modified sections: Eating - Score, Grooming - Score, Bathing - Score, Dressing - Upper Body - Score, Dressing - Lower Body - Score, Toileting - Score, Bladder Management - Score, Bowel Man agement - Score, Transfers: Bed, Chair, Wheelchair - Score, Transfers: Toilet - Score, Transfers: Leona wer - Score, Transfers: Tub - Score, Locomotion: Walk - Score, Locomotion: Wheelchair - Score, Compre hension - Score, Expression - Score, Social Interaction - Score, Problem Solving - Score, Memory - Sc ore were [electronically] signed by Keshia Gardiner CRadhaNSteven on TueDec 21 2017 03:54:22 T-0500 ( Central Daylight Time)
[2017-12-21] MEDS: PROMOD 30 ML DOSE PO SCH ×2 (08:00→20:12)
[2017-12-21] MEDS: [UNRECOGNIZED DRUG - OTHER] EACH EYE SCH (08:28)
[2017-12-21] MEDS: HYDROCODONE/APAP 7.5/325 MG TAB PO PRN ×3 (08:28→20:11)
[2017-12-21] MEDS: AMLODIPINE 5 MG TAB PO SCH (08:29)
[2017-12-21] MEDS: RIVAROXABAN 10 MG TABLET PO SCH (08:29)
[2017-12-21] MEDS: FE SULF/FA/VIT B COMP & C TAB PO SCH (08:29)
[2017-12-21] MEDS: DOCUSATE NA 100 MG CAP PO SCH (08:29)
[2017-12-21] MEDS: AMOX/K CLAV 500 MG TAB PO SCH ×2 (08:29→20:11)
--- NOTE | 2017-12-21 14:53 | FAST ---
SHIFT START DATE/TIME: 12/21/2017 07:00 (CDT) SHIFT END DATE/TIME: 12/21/2017 19:00 (CDT) NAME KYLIE CASE DATE OF : 1940 DATE OF ADMISSION: 12/15/2017 13:36 (CDT) PHONE: AGE: 77 [facility]# [id number] GENDER: Female ENCOUNTER PHYSICIAN: Dr. Maximiliano Bernal M.D. ADMISSION DIAGNOSIS: - Orthopaedic Disorders 08 - Unilateral Hip Fracture (08.11) Impacted left subcapital femoral neck fracture. EATING: EATING - STEP 1: Does the patient require assistance when eating? Yes. EATING - STEP 2: Does the patient require the assistance of a helper? Yes. EATING - STEP 3: Does the patient perform half or more of the eating tasks? Yes. EATING - STEP 4: Does the patient need only supervision, cuing, coaxing OR help to apply an orthosis OR help to cut fo od, open containers, pour liquids, or butter bread? Yes. EATING - SCORE: 5-SUP GROOMING: Comb/brush hair Oral care Wash, rinse, and dry face Wash, rinse, and dry hands GROOMING - STEP 1: Does the patient require assistance when grooming? Yes. GROOMING - STEP 2: Does the patient require the assistance of a helper? Yes. GROOMING - STEP 3: How much assistance does the patient require from the helper? Only prior equipment preparation/set up from the helper GROOMING - SCORE: 5-SUP BATHING: Activity did not occur on this shift BATHING - SCORE: 0-UNK DRESSING - UPPER BODY: ARTICLES SCORE Total number of steps: 0 DRESSING - UPPER BODY - STEP 1: Does the patient require help when dressing above the waist? Yes. DRESSING - UPPER BODY - STEP 2: Does the patient require the assistance of a helper? Yes. DRESSING - UPPER BODY - STEP 3: Does the helper touch the patient while dressing? No. DRESSING - UPPER BODY - SCORE: 5-SUP DRESSING - LOWER BODY: Elastic waist pants (three steps) Slip-on shoe - Left foot (one step) Slip-on shoe - Right foot (one step) Underwear (three steps) ARTICLES SCORE Total number of steps: 8 DRESSING - LOWER BODY - STEP 1: Does the patient require help when dressing below the waist? Yes. DRESSING - LOWER BODY - STEP 2: Does the patient require the assistance of a helper? Yes. DRESSING - LOWER BODY - STEP 3: Does the helper touch the patient while dressing? Yes. DRESSING - LOWER BODY - STEP 4: How many of the total steps does the patient complete on his/her own? 5 DRESSING - LOWER BODY - SCORE: 3-MOD TOILETING: TOILETING - STEP 1: Does the patient require assistance with toileting? Yes. TOILETING - STEP 2: Does the patient require the assistance of a helper? Yes. TOILETING - STEP 3: How much assistance does the patient require from the helper? Only supervision TOILETING - SCORE: 5-SUP BLADDER MANAGEMENT: BLADDER MANAGEMENT - STEP 1: Does the patient control the bladder completely and intentionally without equipment or devices or med ications, and is always continent? No. BLADDER MANAGEMENT - STEP 2: Does the patient require the assistance of a helper? Yes. BLADDER MANAGEMENT - STEP 3: How much assistance does the patient require from the helper? Only supervision, stand-by, cuing, or c oaxing BLADDER MANAGEMENT - SCORE: 5-SUP BLADDER MANAGEMENT - FREQUENCY OF ACCIDENTS: BLADDER MANAGEMENT(FA) - STEP 1: How many accidents has the patient had during the current shift? 0 BOWEL MANAGEMENT: Activity did not occur on this shift BOWEL MANAGEMENT - SCORE: 7-IND BOWEL MANAGEMENT - FREQUENCY OF ACCIDENTS: BOWEL MANAGEMENT(FA) - STEP 1: How many accidents has the patient had during the current shift? 0 TRANSFERS: BED, CHAIR, WHEELCHAIR: TRANSFERS: BED, CHAIR, WHEELCHAIR - STEP 1: Does the patient require assistance with bed, chair, or wheelchair transfers? Yes. TRANSFERS: BED, CHAIR, WHEELCHAIR - STEP 2: Does the patient require the assistance of a helper? Yes. TRANSFERS: BED, CHAIR, WHEELCHAIR - STEP 3: How much assistance does the patient require from the helper? Only supervision TRANSFERS: BED, CHAIR, WHEELCHAIR - SCORE: 5-SUP TRANSFERS: TOILET: TRANSFERS: TOILET - STEP 1: Does the patient require assistance with toilet transfers? Yes. TRANSFERS: TOILET - STEP 2: Does the patient require the assistance of a helper? Yes. TRANSFERS: TOILET - STEP 3: How much assistance does the patient require from the helper? Only supervision, cuing, coaxing, OR he lp to set out transfer equipment or to lock brakes and/or lift foot rests TRANSFERS: TOILET - SCORE: 5-SUP TRANSFERS: SHOWER: Activity did not occur on this shift TRANSFERS: SHOWER - SCORE: 0-UNK TRANSFERS: TUB: Activity did not occur on this shift TRANSFERS: TUB - SCORE: 0-UNK LOCOMOTION: WALK: Activity did not occur on this shift LOCOMOTION: WALK - SCORE: 0-UNK LOCOMOTION: WHEELCHAIR: LOCOMOTION: WHEELCHAIR - STEP 1: Does the patient need help to go 150 feet in a wheelchair? Yes. LOCOMOTION: WHEELCHAIR - STEP 2: How much assistance does the patient need from the helper? Only supervision, cuing, or coaxing LOCOMOTION: WHEELCHAIR - SCORE: 5-SUP COMPREHENSION: COMPREHENSION: TYPE: Both COMPREHENSION - STEP 1: Does the patient require help to understand complex and abstract ideas (such as current events, finan kelley, discharge planning, medical issues, relationships, etc)? No. COMPREHENSION - STEP 2: Does the patient need extra time, require an assistive device (such as glasses, hearing aids, or an a ugmentative communication system), OR does s/he have mild difficulty expressing complex and abstract ideas (including mild dysarthria or mild word-finding problems)? Yes. COMPREHENSION - SCORE: 6-DARLING EXPRESSION EXPRESSION: TYPE: Both EXPRESSION - STEP 1: Does the patient require help expressing complex and abstract ideas (such as current events, finances , discharge planning, medical issues, relationships, etc)? No. EXPRESSION - STEP 2: Does the patient need extra time, require an assistive device (such as augmentive communication syste m or a communication board), OR does s/he have mild difficulty expressing complex and abstract ideas (including mild dysarthria or mild word-find problems)? Yes. EXPRESSION - SCORE: 6-DARLING SOCIAL INTERACTION: SOCIAL INTERACTION - STEP 1: Does the patient require a helper to interact with others in social and therapeutic situations? No. SOCIAL INTERACTION - STEP 2: Does the patient need extra time in social situations, OR does s/he interact with staff, other patien ts, and family members ONLY in structured environments, OR does s/he require medication for social in teraction? No. SOCIAL INTERACTION - SCORE: 7-IND PROBLEM SOLVING: PROBLEM SOLVING - STEP 1: Does the patient need help to solve complex problems such as managing a checking account or confronti ng interpersonal problems? Yes. PROBLEM SOLVING - STEP 2: Does the patient solve basic routine problems half or more of the time? Yes. PROBLEM SOLVING - STEP 3: How often does the patient need help to solve basic routine problems? Less than 10% of the time PROBLEM SOLVING - SCORE: 5-SUP MEMORY: MEMORY - STEP 1: Does the patient need help to remember frequently encountered people, daily routines, and executing r equests? No. MEMORY - STEP 2: Does the patient have slight difficulty recognizing frequently encountered people, daily routines, or executing requests without the need for repetition or using self-initiated or environmental cues to remember? Yes. MEMORY - SCORE: 6-DARLING SIGNATURE PANEL: The following modified sections: Eating - Score, Grooming - Score, Bathing - Score, Dressing - Upper Body - Score, Dressing - Lower Body - Score, Toileting - Score, Bladder Management - Score, Bowel Man agement - Score, Transfers: Bed, Chair, Wheelchair - Score, Transfers: Toilet - Score, Transfers: Leona wer - Score, Transfers: Tub - Score, Locomotion: Walk - Score, Locomotion: Wheelchair - Score, Compre hension - Score, Expression - Score, Social Interaction - Score, Problem Solving - Score, Memory - Sc ore were [electronically] signed by Rima Ashraf C.N.A. on TueDec 21 2017 13:55:04 T-0500 ([facility] Day[facility] Time)
--- NOTE | 2017-12-21 15:39 | FAST ---
ENCOUNTER DATE AND TIME: 12/21/2017 08:00 (CDT) NAME KYLIE CASE DATE OF : 1940 DATE OF ADMISSION: 12/15/2017 13:36 (CDT) PHONE: AGE: 77 N# [id number] GENDER: Female ENCOUNTER PHYSICIAN: Dr. Maximiliano Bernal M.D. ADMISSION DIAGNOSIS: - Orthopaedic Disorders 08 - Unilateral Hip Fracture (08.11) Impacted left subcapital femoral neck fracture. EATING: Activity did not occur on this shift EATING - SCORE: 0-UNK GROOMING: Activity did not occur on this shift GROOMING - SCORE: 0-UNK BATHING: Activity did not occur on this shift BATHING - SCORE: 0-UNK DRESSING - UPPER BODY: Activity did not occur on this shift ARTICLES SCORE Total number of steps: 0 DRESSING - UPPER BODY - SCORE: 0-UNK DRESSING - LOWER BODY: Activity did not occur on this shift ARTICLES SCORE Total number of steps: 0 DRESSING - LOWER BODY - SCORE: 0-UNK TOILETING: Activity did not occur on this shift TOILETING - SCORE: 0-UNK BLADDER MANAGEMENT: Activity did not occur on this shift BLADDER MANAGEMENT - SCORE: 7-IND BOWEL MANAGEMENT: Activity did not occur on this shift BOWEL MANAGEMENT - SCORE: 7-IND TRANSFERS: BED, CHAIR, WHEELCHAIR: TRANSFERS: BED, CHAIR, WHEELCHAIR - STEP 1: Does the patient require assistance with bed, chair, or wheelchair transfers? Yes. TRANSFERS: BED, CHAIR, WHEELCHAIR - STEP 2: Does the patient require the assistance of a helper? Yes. TRANSFERS: BED, CHAIR, WHEELCHAIR - STEP 3: How much assistance does the patient require from the helper? Only supervision TRANSFERS: BED, CHAIR, WHEELCHAIR - SCORE: 5-SUP TRANSFERS: TOILET: Activity did not occur on this shift TRANSFERS: TOILET - SCORE: 0-UNK TRANSFERS: SHOWER: Activity did not occur on this shift TRANSFERS: SHOWER - SCORE: 0-UNK TRANSFERS: TUB: Activity did not occur on this shift TRANSFERS: TUB - SCORE: 0-UNK LOCOMOTION: WALK: Patient walks less than 50 feet LOCOMOTION: WALK - SCORE: 1-DEP LOCOMOTION: WHEELCHAIR: LOCOMOTION: WHEELCHAIR - STEP 1: Does the patient need help to go 150 feet in a wheelchair? Yes. LOCOMOTION: WHEELCHAIR - STEP 2: How much assistance does the patient need from the helper? Only supervision, cuing, or coaxing LOCOMOTION: WHEELCHAIR - SCORE: 5-SUP LOCOMOTION: STAIRS: Activity did not occur on this shift LOCOMOTION: STAIRS - SCORE: 0-UNK COMPREHENSION: COMPREHENSION - SCORE: 0-UNK EXPRESSION EXPRESSION - SCORE: 0-UNK SOCIAL INTERACTION: SOCIAL INTERACTION - SCORE: 0-UNK PROBLEM SOLVING: PROBLEM SOLVING - SCORE: 0-UNK MEMORY: MEMORY - SCORE: 0-UNK SIGNATURE PANEL: The following modified sections: Transfers: Bed, Chair, Wheelchair - Score, Transfers: Toilet - Score , Locomotion: Walk - Score, Locomotion: Wheelchair - Score, Locomotion: Stairs - Score were [electron ically] signed by Herman Perez PTA on TueDec 21 2017 14:41:24 GMT-0500 (Central Daylight Time)
--- NOTE | 2017-12-21 15:49 | FAST ---
ENCOUNTER DATE AND TIME: 12/21/2017 08:00 (CDT) NAME KYLIE CASE DATE OF : 1940 DATE OF ADMISSION: 12/15/2017 13:36 (CDT) PHONE: AGE: 77 N# [id number] GENDER: Female ENCOUNTER PHYSICIAN: Dr. Maximiliano Bernal M.D. ADMISSION DIAGNOSIS: - Orthopaedic Disorders 08 - Unilateral Hip Fracture (08.11) Impacted left subcapital femoral neck fracture. EATING: Activity did not occur on this shift EATING - SCORE: 0-UNK GROOMING: Wash, rinse, and dry face Wash, rinse, and dry hands GROOMING - STEP 1: Does the patient require assistance when grooming? No. GROOMING - SCORE: 7-IND BATHING: Abdomen Buttocks Chest Left arm Left lower leg and foot Left upper leg Perineal area Right arm Right lower leg and foot Right upper leg BATHING - STEP 1: Does the patient require assistance when bathing? Yes. BATHING - STEP 2: Does the patient require the assistance of a helper? Yes. BATHING - STEP 3: How much assistance does the patient require from the helper? Only incidental help such as placement of a wash cloth in his/her hand a few times as s/he bathes OR help to bathe just one or two areas of the body BATHING - SCORE: 4-MIN DRESSING - UPPER BODY: T-shirt/pullover shirt (four steps) ARTICLES SCORE Total number of steps: 4 DRESSING - UPPER BODY - STEP 1: Does the patient require help when dressing above the waist? No. DRESSING - UPPER BODY - SCORE: 7-IND DRESSING - LOWER BODY: Elastic waist pants (three steps) Sock - Left foot (one step) Sock - Right foot (one step) Underwear (three steps) ARTICLES SCORE Total number of steps: 8 DRESSING - LOWER BODY - STEP 1: Does the patient require help when dressing below the waist? Yes. DRESSING - LOWER BODY - STEP 2: Does the patient require the assistance of a helper? Yes. DRESSING - LOWER BODY - STEP 3: Does the helper touch the patient while dressing? Yes. DRESSING - LOWER BODY - STEP 4: How many of the total steps does the patient complete on his/her own? 8 DRESSING - LOWER BODY - SCORE: 4-MIN TOILETING: Activity did not occur on this shift TOILETING - SCORE: 0-UNK BLADDER MANAGEMENT: Activity did not occur on this shift BLADDER MANAGEMENT - SCORE: 7-IND BOWEL MANAGEMENT: Activity did not occur on this shift BOWEL MANAGEMENT - SCORE: 7-IND TRANSFERS: BED, CHAIR, WHEELCHAIR: Activity did not occur on this shift TRANSFERS: BED, CHAIR, WHEELCHAIR - SCORE: 0-UNK TRANSFERS: TOILET: Activity did not occur on this shift TRANSFERS: TOILET - SCORE: 0-UNK TRANSFERS: SHOWER: Activity did not occur on this shift TRANSFERS: SHOWER - SCORE: 0-UNK TRANSFERS: TUB: TRANSFERS: TUB - STEP 1: Does the patient require assistance with tub transfers? Yes. TRANSFERS: TUB - STEP 2: Does the patient require the assistance of a helper? Yes. TRANSFERS: TUB - STEP 3: How much assistance does the patient require from the helper? Incidental help such as contact guardin g or steadying, OR help to lift one leg into the tub TRANSFERS: TUB - SCORE: 4-MIN LOCOMOTION: WALK: Activity did not occur on this shift LOCOMOTION: WALK - SCORE: 0-UNK LOCOMOTION: WHEELCHAIR: Activity did not occur on this shift LOCOMOTION: WHEELCHAIR - SCORE: 0-UNK LOCOMOTION: STAIRS: Activity did not occur on this shift LOCOMOTION: STAIRS - SCORE: 0-UNK COMPREHENSION: COMPREHENSION: TYPE: Both COMPREHENSION - STEP 1: Does the patient require help to understand complex and abstract ideas (such as current events, finan kelley, discharge planning, medical issues, relationships, etc)? No. COMPREHENSION - STEP 2: Does the patient need extra time, require an assistive device (such as glasses, hearing aids, or an a ugmentative communication system), OR does s/he have mild difficulty expressing complex and abstract ideas (including mild dysarthria or mild word-finding problems)? Yes. COMPREHENSION - SCORE: 6-DARLING EXPRESSION EXPRESSION: TYPE: Non-Vocal EXPRESSION - STEP 1: Does the patient require help expressing complex and abstract ideas (such as current events, finances , discharge planning, medical issues, relationships, etc)? No. EXPRESSION - STEP 2: Does the patient need extra time, require an assistive device (such as augmentive communication syste m or a communication board), OR does s/he have mild difficulty expressing complex and abstract ideas (including mild dysarthria or mild word-find problems)? No. EXPRESSION - SCORE: 7-IND SOCIAL INTERACTION: SOCIAL INTERACTION - STEP 1: Does the patient require a helper to interact with others in social and therapeutic situations? No. SOCIAL INTERACTION - STEP 2: Does the patient need extra time in social situations, OR does s/he interact with staff, other patien ts, and family members ONLY in structured environments, OR does s/he require medication for social in teraction? No. SOCIAL INTERACTION - SCORE: 7-IND PROBLEM SOLVING: PROBLEM SOLVING - STEP 1: Does the patient need help to solve complex problems such as managing a checking account or confronti ng interpersonal problems? No. PROBLEM SOLVING - STEP 2: Does the patient require extra time to make decisions or solve problems, OR does s/he have slight dif ficulty reading, initiating, or self-correcting in unfamiliar situations? No. PROBLEM SOLVING - SCORE: 7-IND MEMORY: MEMORY - STEP 1: Does the patient need help to remember frequently encountered people, daily routines, and executing r equests? No. MEMORY - STEP 2: Does the patient have slight difficulty recognizing frequently encountered people, daily routines, or executing requests without the need for repetition or using self-initiated or environmental cues to remember? No. MEMORY - SCORE: 7-IND SIGNATURE PANEL: The following modified sections: Eating - Score, Grooming - Score, Bathing - Score, Dressing - Upper Body - Score, Dressing - Lower Body - Score, Toileting - Score, Transfers: Bed, Chair, Wheelchair - S core, Transfers: Toilet - Score, Transfers: Shower - Score, Transfers: Tub - Score, Comprehension - S core, Expression - Score, Social Interaction - Score, Problem Solving - Score, Memory - Score were [e lectronically] signed by JENNIFFER Irving on TueDec 21 2017 14:50:44 T-0500 ([facility] Time)
--- NOTE | 2017-12-21 18:37 | R.PN ---
ENCOUNTER DATE AND TIME: 12/21/2017 17:36 (CDT) NAME KYLIE CASE DATE OF : 1940 DATE OF ADMISSION: 12/15/2017 13:36 (CDT) Impacted left subcapital femoral neck fractureCHIEF COMPLAINT: Left hip fracture. SUBJECTIVE: Pt denied any Shortness of Breath. Pt denied any depression. Ambulated 75' with contact guard assistance using a rolling walker and touch down weight bearing stat us. VITAL SIGNS Temperature: 97.4 F SBP/DBP: 124/64 Pulse: 66 Resp: 16 MEDICATION ALLERGIES: Sulfa ENVIRONMENTAL ALLERGIES: None Known - Substance Allergies None Known - Other Allergies None Known NURSING: - Shower allowing shower - Skin care per protocol PRECAUTIONS: - Weight Bearing Precaution TTWB left LE ACTIVITIES OOB only with supervision THERAPIES: - Occupational Therapy Evaluate and Treat. - Physical Therapy Evaluate and Treat. PHYSICAL EXAM - Gen Alert and awake Lying in bed No apparent distress Oriented to: person, time, and place - Vital Signs Vital signs stable, afebrile - Skin No skin breakdown. Normacephalic - Eyes No abnormalities - ENMT No abnormalities - Neck No abnormalities - CVS RRR - Chest Clear - Abd Soft - GI Non distended Deferred - No abnormalities - Ext No significant edema - MSK 4+/5 weakness in left lower extremity - Neuro Mild left leg 4/5 weakness. - Psych No abnormalities ASSESSMENT: Pt. is a 77 yo Right-handed white female.On 12/12/2017 she was admitted to [facility] for Impacted left subcapital femoral neck fracture (Percutaneous pin fixati on left impacted femoral neck fracture ) by DR. DORIAN EASTMAN.Pre-morbidly, Pt. was independent/mod-I in Locomotion and Self-Care; and she had good Transfers Control, Balance, Safety Awareness, Social C ognition, Sphincter Control, and Communication.Currently, she has deficits of Sphincter Control, [place]in motion, Balance, Endurance, Safety Awareness, Transfers Control, and Self-Care.Pt. is now referred to [facility] for acute in-patient rehabilitation in order to maximize patient's functional independence in activities of daily living, strength, ROM, and mobility.- Rehab Goal Patient has realistic goal of being discharged at assistance level 6-Micheal to reside at Home with Fam mario alberto/Relatives. MDM/PLAN: - Anterior Hip Precaution No abduction No active extension No adduction across midline No external rotation No hip flexion >90 degrees No internal rotation - Physical Therapy Decreased range of motion - to improve, our physical therapists will perform initial evaluation of p t's status upon admission and devise an individualized program for increasing patient's Range of Scott on. Gait dysfunction - to improve, our physical therapists will perform initial evaluation of pt's statu s upon admission and devise an individualized program for Gait Training, and Wheel Chair mobility Inability to transfer - to improve, our physical therapists will perform initial evaluation of pt's status upon admission and devise an individualized program for Bed mobility Need for home safety evaluation - to improve, our physical therapists will perform initial evaluatio n of pt's status upon admission and devise an individualized program for Home Evaluation Need in caregiver upon discharge - to improve, our physical therapists will perform initial evaluati on of pt's status upon admission and devise an individualized program for Caregiver Training Edema - to improve, our physical therapists will perform initial evaluation of pt's status upon admi ssion and devise an individualized program for Elevation Training, and Lymphedema Therapy New precaution - to improve, our physical therapists will perform initial evaluation of pt's status upon admission and devise an individualized program for Patient precaution education Poor balance - to improve, our physical therapists will perform initial evaluation of pt's status up on admission and devise an individualized program for Balance Training Poor endurance - to improve, our physical therapists will perform initial evaluation of pt's status upon admission and devise an individualized program for Endurance Training Weakness - to improve, our physical therapists will perform initial evaluation of pt's status upon a dmission and devise an individualized program for Aquatic Therapy, Neuromuscular Reeducation, and Str engthening Achieving independence - to improve, our physical therapists will perform initial evaluation of pt's status upon admission and devise an individualized program for Community Reintegration Activities - Diet - Liquid Texture Continue Regular - Tube Feed Continue N/A - Diet Type Continue Regular - Posterior Hip Precaution No adduction across midline No external rotation No hip flexion >90 degrees No internal rotation No wheel chair propulsion - Occupational Therapy ADL deficits - to improve, our occupation therapists will perform initial evaluation of pt's status upon admission and devise an individualized program for Bathing, Bed mobility, Community Reintegratio n, Cooking, Dressing, Eating, Fine Motor Skills, Grooming, Homemaking, Kitchen Mobility, Laundry, Pat ient Education, Safety Awareness, Splinting - Positioning, Transfers(Toilet, Tub, Shower), and Wheel Chair Management Need for geriatric care manager - to improve, our occupation therapists will perform initial evaluation of pt's status upon admission and devise an individualized program for Caregiver Training Weakness - to improve, our occupation therapists will perform initial evaluation of pt's status upon admission and devise an individualized program for Aquatic Therapy, Balance, Endurance, UE ROM, and UE strengthening - Weight Bearing Precaution TTWB left LE - Skin care per protocol - Diet - Solid Texture Continue Regular - Shower allowing shower FUNCTIONAL STATUS: - Self-Care A. Eating sup B. Grooming sup C. Bathing maxA D. Dressing - Upper modA E. Dressing - Lower maxA F. Toileting maxA - Sphincter Control G. Bladder control maxA H. Bowel control maxA - Transfers Control I. Bed/Chair/Wheelchair maxA J. Toilet maxA K. Tub/Shower maxA - Locomotion L. Walk/Wheelchair (W) Dep M. Stairs ADNO - Communication N. Comprehension (B) Micheal O. Expression (B) Micheal - Social Cognition P. Social Interaction Micheal Q. Problem Solving Micheal R. Memory Micheal - Endurance Poor - Balance Poor - Safety Awareness Poor CURRENT FUNC. DEFICITS: Sphincter Control, Locomotion, Balance, Endurance, Safety Awareness, Transfers Control, and Self-Care SIGNATURE PANEL: (CDT)
[2017-12-21] MEDS: DOCUSATE NA/SENNA CONC 1 TAB PO PRN (20:11)
[2017-12-21] MEDS: TRAVOPROST 0.004% EACH EYE SCH (20:12)
[2017-12-22] MEDS: HYDROCODONE/APAP 7.5/325 MG TAB PO PRN ×4 (00:18→20:04)
--- NOTE | 2017-12-22 03:34 | FAST ---
SHIFT START DATE/TIME: 12/21/2017 19:00 (CDT) SHIFT END DATE/TIME: 12/22/2017 07:00 (CDT) NAME KYLIE CASE DATE OF : 1940 DATE OF ADMISSION: 12/15/2017 13:36 (CDT) PHONE: AGE: 77 N# [id number] GENDER: Female ENCOUNTER PHYSICIAN: Dr. Maximiliano Bernal M.D. ADMISSION DIAGNOSIS: - Orthopaedic Disorders 08 - Unilateral Hip Fracture (08.11) Impacted left subcapital femoral neck fracture. EATING: Activity did not occur on this shift EATING - SCORE: 0-UNK GROOMING: Wash, rinse, and dry hands GROOMING - STEP 1: Does the patient require assistance when grooming? Yes. GROOMING - STEP 2: Does the patient require the assistance of a helper? No. The patient only requires an assistive devic e, OR takes more than reasonable time to groom, OR there is a concern for safety as the patient groom s GROOMING - SCORE: 6-DARLING BATHING: Activity did not occur on this shift BATHING - SCORE: 0-UNK DRESSING - UPPER BODY: Activity did not occur on this shift ARTICLES SCORE Total number of steps: 0 DRESSING - UPPER BODY - SCORE: 0-UNK DRESSING - LOWER BODY: Activity did not occur on this shift ARTICLES SCORE Total number of steps: 0 DRESSING - LOWER BODY - SCORE: 0-UNK TOILETING: TOILETING - STEP 1: Does the patient require assistance with toileting? Yes. TOILETING - STEP 2: Does the patient require the assistance of a helper? Yes. TOILETING - STEP 3: How much assistance does the patient require from the helper? Only supervision TOILETING - SCORE: 5-SUP BLADDER MANAGEMENT: BLADDER MANAGEMENT - STEP 1: Does the patient control the bladder completely and intentionally without equipment or devices or med ications, and is always continent? No. BLADDER MANAGEMENT - STEP 2: Does the patient require the assistance of a helper? Yes. BLADDER MANAGEMENT - STEP 3: How much assistance does the patient require from the helper? Only supervision, stand-by, cuing, or c oaxing BLADDER MANAGEMENT - SCORE: 5-SUP BOWEL MANAGEMENT: Activity did not occur on this shift BOWEL MANAGEMENT - SCORE: 7-IND TRANSFERS: BED, CHAIR, WHEELCHAIR: TRANSFERS: BED, CHAIR, WHEELCHAIR - STEP 1: Does the patient require assistance with bed, chair, or wheelchair transfers? Yes. TRANSFERS: BED, CHAIR, WHEELCHAIR - STEP 2: Does the patient require the assistance of a helper? Yes. TRANSFERS: BED, CHAIR, WHEELCHAIR - STEP 3: How much assistance does the patient require from the helper? Lifting of the legs TRANSFERS: BED, CHAIR, WHEELCHAIR - STEP 4: How many legs does the patient require the helper to lift? both legs TRANSFERS: BED, CHAIR, WHEELCHAIR - SCORE: 3-MOD TRANSFERS: TOILET: TRANSFERS: TOILET - STEP 1: Does the patient require assistance with toilet transfers? Yes. TRANSFERS: TOILET - STEP 2: Does the patient require the assistance of a helper? Yes. TRANSFERS: TOILET - STEP 3: How much assistance does the patient require from the helper? Only supervision, cuing, coaxing, OR he lp to set out transfer equipment or to lock brakes and/or lift foot rests TRANSFERS: TOILET - SCORE: 5-SUP TRANSFERS: SHOWER: Activity did not occur on this shift TRANSFERS: SHOWER - SCORE: 0-UNK TRANSFERS: TUB: Activity did not occur on this shift TRANSFERS: TUB - SCORE: 0-UNK LOCOMOTION: WALK: Activity did not occur on this shift LOCOMOTION: WALK - SCORE: 0-UNK LOCOMOTION: WHEELCHAIR: Activity did not occur on this shift LOCOMOTION: WHEELCHAIR - SCORE: 0-UNK COMPREHENSION: COMPREHENSION: TYPE: Both COMPREHENSION - STEP 1: Does the patient require help to understand complex and abstract ideas (such as current events, finan kelley, discharge planning, medical issues, relationships, etc)? No. COMPREHENSION - STEP 2: Does the patient need extra time, require an assistive device (such as glasses, hearing aids, or an a ugmentative communication system), OR does s/he have mild difficulty expressing complex and abstract ideas (including mild dysarthria or mild word-finding problems)? Yes. COMPREHENSION - SCORE: 6-DARLING EXPRESSION EXPRESSION: TYPE: Both EXPRESSION - STEP 1: Does the patient require help expressing complex and abstract ideas (such as current events, finances , discharge planning, medical issues, relationships, etc)? No. EXPRESSION - STEP 2: Does the patient need extra time, require an assistive device (such as augmentive communication syste m or a communication board), OR does s/he have mild difficulty expressing complex and abstract ideas (including mild dysarthria or mild word-find problems)? No. EXPRESSION - SCORE: 7-IND SOCIAL INTERACTION: SOCIAL INTERACTION - STEP 1: Does the patient require a helper to interact with others in social and therapeutic situations? No. SOCIAL INTERACTION - STEP 2: Does the patient need extra time in social situations, OR does s/he interact with staff, other patien ts, and family members ONLY in structured environments, OR does s/he require medication for social in teraction? No. SOCIAL INTERACTION - SCORE: 7-IND PROBLEM SOLVING: PROBLEM SOLVING - STEP 1: Does the patient need help to solve complex problems such as managing a checking account or confronti ng interpersonal problems? No. PROBLEM SOLVING - STEP 2: Does the patient require extra time to make decisions or solve problems, OR does s/he have slight dif ficulty reading, initiating, or self-correcting in unfamiliar situations? No. PROBLEM SOLVING - SCORE: 7-IND MEMORY: MEMORY - STEP 1: Does the patient need help to remember frequently encountered people, daily routines, and executing r equests? No. MEMORY - STEP 2: Does the patient have slight difficulty recognizing frequently encountered people, daily routines, or executing requests without the need for repetition or using self-initiated or environmental cues to remember? No. MEMORY - SCORE: 7-IND SIGNATURE PANEL: The following modified sections: Eating - Score, Grooming - Score, Bathing - Score, Dressing - Upper Body - Score, Dressing - Lower Body - Score, Toileting - Score, Bladder Management - Score, Bowel Man agement - Score, Transfers: Bed, Chair, Wheelchair - Score, Transfers: Toilet - Score, Transfers: Leona wer - Score, Transfers: Tub - Score, Locomotion: Walk - Score, Locomotion: Wheelchair - Score, Compre hension - Score, Expression - Score, Social Interaction - Score, Problem Solving - Score, Memory - Sc ore were [electronically] signed by Peggy Montoya CNA on TueDec 22 2017 02:36:27 GMT-0500 (Central Daylight Time)
[2017-12-22 06:45] LABS: Absolute Lymphocytes (CBC) 2.7 K/uL (0.7-4.9); Absolute Monocytes 0.8 K/uL (0.1-1.3); Absolute Neutrophil 3.7 K/uL (1.8-8.0); Basophils % 1.3 % (0-1.3); Eosinophils % 5.3 % (0-4.4); Hematocrit 31.5 % (36.0-45.0); MCH 28.7 pg (27.0-35.0); MPV 8.4 fL (7.6-11.3); Monocytes % 10.1 % (3.3-12.3); RBC Red Blood Cell Count 3.58 M/uL (3.86-4.86)
[2017-12-22 07:22] LABS: Albumin 3.1 g/dL (3.2-5.5); Potassium 4.5 mEq/L (3.6-5.0); Prealbumin 22.8 mg/dl (18-38)
[2017-12-22] MEDS: PROMOD 30 ML DOSE PO SCH ×2 (08:00→20:05)
[2017-12-22] MEDS: [UNRECOGNIZED DRUG - OTHER] EACH EYE SCH (08:28)
[2017-12-22] MEDS: AMOX/K CLAV 500 MG TAB PO SCH ×2 (08:29→20:05)
[2017-12-22] MEDS: FE SULF/FA/VIT B COMP & C TAB PO SCH (08:29)
[2017-12-22] MEDS: AMLODIPINE 5 MG TAB PO SCH (08:29)
[2017-12-22] MEDS: DOCUSATE NA 100 MG CAP PO SCH (08:29)
[2017-12-22] MEDS: RIVAROXABAN 10 MG TABLET PO SCH (08:29)
--- NOTE | 2017-12-22 15:44 | FAST ---
SHIFT START DATE/TIME: 12/22/2017 07:00 (CDT) SHIFT END DATE/TIME: 12/22/2017 19:00 (CDT) NAME KYLIE CASE DATE OF : 1940 DATE OF ADMISSION: 12/15/2017 13:36 (CDT) PHONE: AGE: 77 N# [id number] GENDER: Female ENCOUNTER PHYSICIAN: Dr. Maximiliano Bernal M.D. ADMISSION DIAGNOSIS: - Orthopaedic Disorders 08 - Unilateral Hip Fracture (08.11) Impacted left subcapital femoral neck fracture. EATING: EATING - STEP 1: Does the patient require assistance when eating? Yes. EATING - STEP 2: Does the patient require the assistance of a helper? Yes. EATING - STEP 3: Does the patient perform half or more of the eating tasks? Yes. EATING - STEP 4: Does the patient need only supervision, cuing, coaxing OR help to apply an orthosis OR help to cut fo od, open containers, pour liquids, or butter bread? Yes. EATING - SCORE: 5-SUP GROOMING: Comb/brush hair Wash, rinse, and dry face Wash, rinse, and dry hands GROOMING - STEP 1: Does the patient require assistance when grooming? Yes. GROOMING - STEP 2: Does the patient require the assistance of a helper? No. The patient only requires an assistive devic e, OR takes more than reasonable time to groom, OR there is a concern for safety as the patient groom s GROOMING - SCORE: 6-DARLING BATHING: Activity did not occur on this shift BATHING - SCORE: 0-UNK DRESSING - UPPER BODY: ARTICLES SCORE Total number of steps: 0 DRESSING - UPPER BODY - STEP 1: Does the patient require help when dressing above the waist? Yes. DRESSING - UPPER BODY - STEP 2: Does the patient require the assistance of a helper? Yes. DRESSING - UPPER BODY - STEP 3: Does the helper touch the patient while dressing? No. DRESSING - UPPER BODY - SCORE: 5-SUP DRESSING - LOWER BODY: Elastic waist pants (three steps) Underwear (three steps) ARTICLES SCORE Total number of steps: 6 DRESSING - LOWER BODY - STEP 1: Does the patient require help when dressing below the waist? Yes. DRESSING - LOWER BODY - STEP 2: Does the patient require the assistance of a helper? Yes. DRESSING - LOWER BODY - STEP 3: Does the helper touch the patient while dressing? No. DRESSING - LOWER BODY - SCORE: 5-SUP TOILETING: TOILETING - STEP 1: Does the patient require assistance with toileting? Yes. TOILETING - STEP 2: Does the patient require the assistance of a helper? Yes. TOILETING - STEP 3: How much assistance does the patient require from the helper? Only supervision TOILETING - SCORE: 5-SUP BLADDER MANAGEMENT: BLADDER MANAGEMENT - STEP 1: Does the patient control the bladder completely and intentionally without equipment or devices or med ications, and is always continent? No. BLADDER MANAGEMENT - STEP 2: Does the patient require the assistance of a helper? Yes. BLADDER MANAGEMENT - STEP 3: How much assistance does the patient require from the helper? Only supervision, stand-by, cuing, or c oaxing BLADDER MANAGEMENT - SCORE: 5-SUP BOWEL MANAGEMENT: Activity did not occur on this shift BOWEL MANAGEMENT - SCORE: 7-IND BOWEL MANAGEMENT - FREQUENCY OF ACCIDENTS: BOWEL MANAGEMENT(FA) - STEP 1: How many accidents has the patient had during the current shift? 0 TRANSFERS: BED, CHAIR, WHEELCHAIR: TRANSFERS: BED, CHAIR, WHEELCHAIR - STEP 1: Does the patient require assistance with bed, chair, or wheelchair transfers? Yes. TRANSFERS: BED, CHAIR, WHEELCHAIR - STEP 2: Does the patient require the assistance of a helper? Yes. TRANSFERS: BED, CHAIR, WHEELCHAIR - STEP 3: How much assistance does the patient require from the helper? Only supervision TRANSFERS: BED, CHAIR, WHEELCHAIR - SCORE: 5-SUP TRANSFERS: TOILET: TRANSFERS: TOILET - STEP 1: Does the patient require assistance with toilet transfers? Yes. TRANSFERS: TOILET - STEP 2: Does the patient require the assistance of a helper? Yes. TRANSFERS: TOILET - STEP 3: How much assistance does the patient require from the helper? Only supervision, cuing, coaxing, OR he lp to set out transfer equipment or to lock brakes and/or lift foot rests TRANSFERS: TOILET - SCORE: 5-SUP TRANSFERS: SHOWER: Activity did not occur on this shift TRANSFERS: SHOWER - SCORE: 0-UNK TRANSFERS: TUB: Activity did not occur on this shift TRANSFERS: TUB - SCORE: 0-UNK LOCOMOTION: WALK: Activity did not occur on this shift LOCOMOTION: WALK - SCORE: 0-UNK LOCOMOTION: WHEELCHAIR: LOCOMOTION: WHEELCHAIR - STEP 1: Does the patient need help to go 150 feet in a wheelchair? Yes. LOCOMOTION: WHEELCHAIR - STEP 2: How much assistance does the patient need from the helper? Only incidental help such as around corner s or over thresholds LOCOMOTION: WHEELCHAIR - SCORE: 4-MIN COMPREHENSION: COMPREHENSION: TYPE: Both COMPREHENSION - STEP 1: Does the patient require help to understand complex and abstract ideas (such as current events, finan kelley, discharge planning, medical issues, relationships, etc)? No. COMPREHENSION - STEP 2: Does the patient need extra time, require an assistive device (such as glasses, hearing aids, or an a ugmentative communication system), OR does s/he have mild difficulty expressing complex and abstract ideas (including mild dysarthria or mild word-finding problems)? Yes. COMPREHENSION - SCORE: 6-DARLING EXPRESSION EXPRESSION: TYPE: Both EXPRESSION - STEP 1: Does the patient require help expressing complex and abstract ideas (such as current events, finances , discharge planning, medical issues, relationships, etc)? No. EXPRESSION - STEP 2: Does the patient need extra time, require an assistive device (such as augmentive communication syste m or a communication board), OR does s/he have mild difficulty expressing complex and abstract ideas (including mild dysarthria or mild word-find problems)? Yes. EXPRESSION - SCORE: 6-DARLING SOCIAL INTERACTION: SOCIAL INTERACTION - STEP 1: Does the patient require a helper to interact with others in social and therapeutic situations? No. SOCIAL INTERACTION - STEP 2: Does the patient need extra time in social situations, OR does s/he interact with staff, other patien ts, and family members ONLY in structured environments, OR does s/he require medication for social in teraction? No. SOCIAL INTERACTION - SCORE: 7-IND PROBLEM SOLVING: PROBLEM SOLVING - STEP 1: Does the patient need help to solve complex problems such as managing a checking account or confronti ng interpersonal problems? Yes. PROBLEM SOLVING - STEP 2: Does the patient solve basic routine problems half or more of the time? Yes. PROBLEM SOLVING - STEP 3: How often does the patient need help to solve basic routine problems? Less than 10% of the time PROBLEM SOLVING - SCORE: 5-SUP MEMORY: MEMORY - STEP 1: Does the patient need help to remember frequently encountered people, daily routines, and executing r equests? No. MEMORY - STEP 2: Does the patient have slight difficulty recognizing frequently encountered people, daily routines, or executing requests without the need for repetition or using self-initiated or environmental cues to remember? Yes. MEMORY - SCORE: 6-DARLING SIGNATURE PANEL: The following modified sections: Eating - Score, Grooming - Score, Bathing - Score, Dressing - Upper Body - Score, Dressing - Lower Body - Score, Toileting - Score, Bladder Management - Score, Bowel Man agement - Score, Transfers: Bed, Chair, Wheelchair - Score, Transfers: Toilet - Score, Transfers: Leona wer - Score, Transfers: Tub - Score, Locomotion: Walk - Score, Locomotion: Wheelchair - Score, Compre hension - Score, Expression - Score, Social Interaction - Score, Problem Solving - Score, Memory - Sc ore were [electronically] signed by Rima Ashraf C.N.A. on TueDec 22 2017 14:45:54 T-0500 (Centra l Daylight Time)
--- NOTE | 2017-12-22 16:15 | FAST ---
ENCOUNTER DATE AND TIME: 12/22/2017 08:00 (CDT) NAME KYLIE CASE DATE OF : 1940 DATE OF ADMISSION: 12/15/2017 13:36 (CDT) PHONE: AGE: 77 N# [id number] GENDER: Female ENCOUNTER PHYSICIAN: Dr. Maximiliano Bernal M.D. ADMISSION DIAGNOSIS: - Orthopaedic Disorders 08 - Unilateral Hip Fracture (08.11) Impacted left subcapital femoral neck fracture. EATING: Activity did not occur on this shift EATING - SCORE: 0-UNK GROOMING: Activity did not occur on this shift GROOMING - SCORE: 0-UNK BATHING: Activity did not occur on this shift BATHING - SCORE: 0-UNK DRESSING - UPPER BODY: Activity did not occur on this shift ARTICLES SCORE Total number of steps: 0 DRESSING - UPPER BODY - SCORE: 0-UNK DRESSING - LOWER BODY: Activity did not occur on this shift ARTICLES SCORE Total number of steps: 0 DRESSING - LOWER BODY - SCORE: 0-UNK TOILETING: Activity did not occur on this shift TOILETING - SCORE: 0-UNK BLADDER MANAGEMENT: Activity did not occur on this shift BLADDER MANAGEMENT - SCORE: 7-IND BOWEL MANAGEMENT: Activity did not occur on this shift BOWEL MANAGEMENT - SCORE: 7-IND TRANSFERS: BED, CHAIR, WHEELCHAIR: TRANSFERS: BED, CHAIR, WHEELCHAIR - STEP 1: Does the patient require assistance with bed, chair, or wheelchair transfers? Yes. TRANSFERS: BED, CHAIR, WHEELCHAIR - STEP 2: Does the patient require the assistance of a helper? Yes. TRANSFERS: BED, CHAIR, WHEELCHAIR - STEP 3: How much assistance does the patient require from the helper? Only supervision TRANSFERS: BED, CHAIR, WHEELCHAIR - SCORE: 5-SUP TRANSFERS: TOILET: Activity did not occur on this shift TRANSFERS: TOILET - SCORE: 0-UNK TRANSFERS: SHOWER: Activity did not occur on this shift TRANSFERS: SHOWER - SCORE: 0-UNK TRANSFERS: TUB: Activity did not occur on this shift TRANSFERS: TUB - SCORE: 0-UNK LOCOMOTION: WALK: Patient walks less than 50 feet LOCOMOTION: WALK - SCORE: 1-DEP LOCOMOTION: WHEELCHAIR: LOCOMOTION: WHEELCHAIR - STEP 1: Does the patient need help to go 150 feet in a wheelchair? Yes. LOCOMOTION: WHEELCHAIR - STEP 2: How much assistance does the patient need from the helper? Only supervision, cuing, or coaxing LOCOMOTION: WHEELCHAIR - SCORE: 5-SUP LOCOMOTION: STAIRS: Activity did not occur on this shift LOCOMOTION: STAIRS - SCORE: 0-UNK COMPREHENSION: COMPREHENSION - SCORE: 0-UNK EXPRESSION EXPRESSION - SCORE: 0-UNK SOCIAL INTERACTION: SOCIAL INTERACTION - SCORE: 0-UNK PROBLEM SOLVING: PROBLEM SOLVING - SCORE: 0-UNK MEMORY: MEMORY - SCORE: 0-UNK SIGNATURE PANEL: The following modified sections: Transfers: Bed, Chair, Wheelchair - Score, Transfers: Toilet - Score , Locomotion: Walk - Score, Locomotion: Wheelchair - Score, Locomotion: Stairs - Score were [electron ically] signed by Herman Perez PTA on TueDec 22 2017 15:16:57 GMT-0500 (Central Daylight Time)
--- NOTE | 2017-12-22 18:55 | R.PN ---
ENCOUNTER DATE AND TIME: 12/22/2017 17:54 (CDT) NAME KYLIE CASE DATE OF : 1940 DATE OF ADMISSION: 12/15/2017 13:36 (CDT) Impacted left subcapital femoral neck fractureCHIEF COMPLAINT: Left hip fracture. SUBJECTIVE: Pt denied any Shortness of Breath. Pt denied any depression. Ambulated 98' with contact guard assistance using a rolling walker and touch down weight bearing stat us. Propelled wheelchair 250' with standby assistance. VITAL SIGNS Temperature: 97.4 F SBP/DBP: 130/69 Pulse: 68 Resp: 16 MEDICATION ALLERGIES: Sulfa ENVIRONMENTAL ALLERGIES: None Known - Substance Allergies None Known - Other Allergies None Known NURSING: - Shower allowing shower - Skin care per protocol PRECAUTIONS: - Weight Bearing Precaution TTWB left LE ACTIVITIES OOB only with supervision THERAPIES: - Occupational Therapy Evaluate and Treat. - Physical Therapy Evaluate and Treat. PHYSICAL EXAM - Gen Alert and awake Lying in bed No apparent distress Oriented to: person, time, and place - Vital Signs Vital signs stable, afebrile - Skin No skin breakdown. Normacephalic - Eyes No abnormalities - ENMT No abnormalities - Neck No abnormalities - CVS RRR - Chest Clear - Abd Soft - GI Non distended Deferred - No abnormalities - Ext No significant edema - MSK 4+/5 weakness in left lower extremity - Neuro Mild left leg 4/5 weakness. - Psych No abnormalities ASSESSMENT: Pt. is a 77 yo Right-handed white female.On 12/12/2017 she was admitted to [facility] and derwe emergency surgery for Impacted left subcapital femoral neck fracture (Percutaneous pin fixati on left impacted femoral neck fracture ) by DR. DORIAN EASTMAN.Pre-morbidly, Pt. was independent/mod-I in Locomotion and Self-Care; and she had good Transfers Control, Balance, Safety Awareness, Social C ognition, Sphincter Control, and Communication.Currently, she has deficits of Sphincter Control, [place] motion, Balance, Endurance, Safety Awareness, Transfers Control, and Self-Care.Pt. is now referred to [facility] for acute in-patient rehabilitation in order to maximize patient's functional independence in activities of daily living, strength, ROM, and mobility.- Rehab Goal Patient has realistic goal of being discharged at assistance level 6-Micheal to reside at Home with Fam mario alberto/Relatives. MDM/PLAN: - Anterior Hip Precaution No abduction No active extension No adduction across midline No external rotation No hip flexion >90 degrees No internal rotation - Physical Therapy Decreased range of motion - to improve, our physical therapists will perform initial evaluation of p t's status upon admission and devise an individualized program for increasing patient's Range of [place] on. Gait dysfunction - to improve, our physical therapists will perform initial evaluation of pt's statu s upon admission and devise an individualized program for Gait Training, and Wheel Chair mobility Inability to transfer - to improve, our physical therapists will perform initial evaluation of pt's status upon admission and devise an individualized program for Bed mobility Need for home safety evaluation - to improve, our physical therapists will perform initial evaluatio n of pt's status upon admission and devise an individualized program for Home Evaluation Need in caregiver upon discharge - to improve, our physical therapists will perform initial evaluati on of pt's status upon admission and devise an individualized program for Caregiver Training Edema - to improve, our physical therapists will perform initial evaluation of pt's status upon admi ssion and devise an individualized program for Elevation Training, and Lymphedema Therapy New precaution - to improve, our physical therapists will perform initial evaluation of pt's status upon admission and devise an individualized program for Patient precaution education Poor balance - to improve, our physical therapists will perform initial evaluation of pt's status up on admission and devise an individualized program for Balance Training Poor endurance - to improve, our physical therapists will perform initial evaluation of pt's status upon admission and devise an individualized program for Endurance Training Weakness - to improve, our physical therapists will perform initial evaluation of pt's status upon a dmission and devise an individualized program for Aquatic Therapy, Neuromuscular Reeducation, and Str engthening Achieving independence - to improve, our physical therapists will perform initial evaluation of pt's status upon admission and devise an individualized program for Community Reintegration Activities - Diet - Liquid Texture Continue Regular - Tube Feed Continue N/A - Diet Type Continue Regular - Posterior Hip Precaution No adduction across midline No external rotation No hip flexion >90 degrees No internal rotation No wheel chair propulsion - Occupational Therapy ADL deficits - to improve, our occupation therapists will perform initial evaluation of pt's status upon admission and devise an individualized program for Bathing, Bed mobility, Community Reintegratio n, Cooking, Dressing, Eating, Fine Motor Skills, Grooming, Homemaking, Kitchen Mobility, Laundry, Pat ient Education, Safety Awareness, Splinting - Positioning, Transfers(Toilet, Tub, Shower), and Wheel Chair Management Need for manager progressive care - to improve, our occupation therapists will perform initial evaluation of pt's status upon admission and devise an individualized program for Caregiver Training Weakness - to improve, our occupation therapists will perform initial evaluation of pt's status upon admission and devise an individualized program for Aquatic Therapy, Balance, Endurance, UE ROM, and UE strengthening - Weight Bearing Precaution TTWB left LE - Skin care per protocol - Diet - Solid Texture Continue Regular - Shower allowing shower FUNCTIONAL STATUS: - Self-Care A. Eating sup B. Grooming sup C. Bathing maxA D. Dressing - Upper modA E. Dressing - Lower maxA F. Toileting maxA - Sphincter Control G. Bladder control maxA H. Bowel control maxA - Transfers Control I. Bed/Chair/Wheelchair maxA J. Toilet maxA K. Tub/Shower maxA - Locomotion L. Walk/Wheelchair (W) Dep M. Stairs ADNO - Communication N. Comprehension (B) Micheal O. Expression (B) Micheal - Social Cognition P. Social Interaction Micheal Q. Problem Solving Micheal R. Memory Micheal - Endurance Poor - Balance Poor - Safety Awareness Poor CURRENT FUNC. DEFICITS: Sphincter Control, Locomotion, Balance, Endurance, Safety Awareness, Transfers Control, and Self-Care SIGNATURE PANEL: (CDT)
[2017-12-22] MEDS: DOCUSATE NA/SENNA CONC 1 TAB PO PRN (20:05)
[2017-12-22] MEDS: TRAVOPROST 0.004% EACH EYE SCH (20:05)
[2017-12-23] MEDS: HYDROCODONE/APAP 7.5/325 MG TAB PO PRN ×2 (00:17→06:33)
--- NOTE | 2017-12-23 03:03 | FAST ---
SHIFT START DATE/TIME: 12/22/2017 19:00 (CDT) SHIFT END DATE/TIME: 12/23/2017 07:00 (CDT) NAME KYLIE CASE DATE OF : 1940 DATE OF ADMISSION: 12/15/2017 13:36 (CDT) PHONE: AGE: 77 N# [id number] GENDER: Female ENCOUNTER PHYSICIAN: Dr. Maximiliano Bernal M.D. ADMISSION DIAGNOSIS: - Orthopaedic Disorders 08 - Unilateral Hip Fracture (08.11) Impacted left subcapital femoral neck fracture. EATING: Activity did not occur on this shift EATING - SCORE: 0-UNK GROOMING: Wash, rinse, and dry face Wash, rinse, and dry hands GROOMING - STEP 1: Does the patient require assistance when grooming? Yes. GROOMING - STEP 2: Does the patient require the assistance of a helper? Yes. GROOMING - STEP 3: How much assistance does the patient require from the helper? Only prior equipment preparation/set up from the helper GROOMING - SCORE: 5-SUP BATHING: Activity did not occur on this shift BATHING - SCORE: 0-UNK DRESSING - UPPER BODY: Activity did not occur on this shift ARTICLES SCORE Total number of steps: 0 DRESSING - UPPER BODY - SCORE: 0-UNK DRESSING - LOWER BODY: Activity did not occur on this shift ARTICLES SCORE Total number of steps: 0 DRESSING - LOWER BODY - SCORE: 0-UNK TOILETING: TOILETING - STEP 1: Does the patient require assistance with toileting? Yes. TOILETING - STEP 2: Does the patient require the assistance of a helper? Yes. TOILETING - STEP 3: How much assistance does the patient require from the helper? Only supervision TOILETING - SCORE: 5-SUP BLADDER MANAGEMENT: BLADDER MANAGEMENT - STEP 1: Does the patient control the bladder completely and intentionally without equipment or devices or med ications, and is always continent? No. BLADDER MANAGEMENT - STEP 2: Does the patient require the assistance of a helper? Yes. BLADDER MANAGEMENT - STEP 3: How much assistance does the patient require from the helper? Only supervision, stand-by, cuing, or c oaxing BLADDER MANAGEMENT - SCORE: 5-SUP BOWEL MANAGEMENT: Activity did not occur on this shift BOWEL MANAGEMENT - SCORE: 7-IND TRANSFERS: BED, CHAIR, WHEELCHAIR: TRANSFERS: BED, CHAIR, WHEELCHAIR - STEP 1: Does the patient require assistance with bed, chair, or wheelchair transfers? Yes. TRANSFERS: BED, CHAIR, WHEELCHAIR - STEP 2: Does the patient require the assistance of a helper? Yes. TRANSFERS: BED, CHAIR, WHEELCHAIR - STEP 3: How much assistance does the patient require from the helper? Lifting of the legs TRANSFERS: BED, CHAIR, WHEELCHAIR - STEP 4: How many legs does the patient require the helper to lift? both legs TRANSFERS: BED, CHAIR, WHEELCHAIR - SCORE: 3-MOD TRANSFERS: TOILET: TRANSFERS: TOILET - STEP 1: Does the patient require assistance with toilet transfers? Yes. TRANSFERS: TOILET - STEP 2: Does the patient require the assistance of a helper? Yes. TRANSFERS: TOILET - STEP 3: How much assistance does the patient require from the helper? Only supervision, cuing, coaxing, OR he lp to set out transfer equipment or to lock brakes and/or lift foot rests TRANSFERS: TOILET - SCORE: 5-SUP TRANSFERS: SHOWER: Activity did not occur on this shift TRANSFERS: SHOWER - SCORE: 0-UNK TRANSFERS: TUB: Activity did not occur on this shift TRANSFERS: TUB - SCORE: 0-UNK LOCOMOTION: WALK: Activity did not occur on this shift LOCOMOTION: WALK - SCORE: 0-UNK LOCOMOTION: WHEELCHAIR: Activity did not occur on this shift LOCOMOTION: WHEELCHAIR - SCORE: 0-UNK COMPREHENSION: COMPREHENSION - STEP 1: Does the patient require help to understand complex and abstract ideas (such as current events, finan kelley, discharge planning, medical issues, relationships, etc)? No. COMPREHENSION - STEP 2: Does the patient need extra time, require an assistive device (such as glasses, hearing aids, or an a ugmentative communication system), OR does s/he have mild difficulty expressing complex and abstract ideas (including mild dysarthria or mild word-finding problems)? Yes. COMPREHENSION - SCORE: 6-DARLING EXPRESSION EXPRESSION - STEP 1: Does the patient require help expressing complex and abstract ideas (such as current events, finances , discharge planning, medical issues, relationships, etc)? No. EXPRESSION - STEP 2: Does the patient need extra time, require an assistive device (such as augmentive communication syste m or a communication board), OR does s/he have mild difficulty expressing complex and abstract ideas (including mild dysarthria or mild word-find problems)? No. EXPRESSION - SCORE: 7-IND SOCIAL INTERACTION: SOCIAL INTERACTION - STEP 1: Does the patient require a helper to interact with others in social and therapeutic situations? No. SOCIAL INTERACTION - STEP 2: Does the patient need extra time in social situations, OR does s/he interact with staff, other patien ts, and family members ONLY in structured environments, OR does s/he require medication for social in teraction? No. SOCIAL INTERACTION - SCORE: 7-IND PROBLEM SOLVING: PROBLEM SOLVING - STEP 1: Does the patient need help to solve complex problems such as managing a checking account or confronti ng interpersonal problems? No. PROBLEM SOLVING - STEP 2: Does the patient require extra time to make decisions or solve problems, OR does s/he have slight dif ficulty reading, initiating, or self-correcting in unfamiliar situations? Yes, patient needs extra ti me. PROBLEM SOLVING - SCORE: 6-DARLING MEMORY: MEMORY - STEP 1: Does the patient need help to remember frequently encountered people, daily routines, and executing r equests? No. MEMORY - STEP 2: Does the patient have slight difficulty recognizing frequently encountered people, daily routines, or executing requests without the need for repetition or using self-initiated or environmental cues to remember? No. MEMORY - SCORE: 7-IND SIGNATURE PANEL: The following modified sections: Eating - Score, Grooming - Score, Dressing - Upper Body - Score, Tray ssing - Lower Body - Score, Toileting - Score, Bladder Management - Score, Bowel Management - Score, Transfers: Bed, Chair, Wheelchair - Score, Transfers: Toilet - Score, Transfers: Shower - Score, Smart sfers: Tub - Score, Locomotion: Walk - Score, Locomotion: Wheelchair - Score, Comprehension - Score, Expression - Score, Social Interaction - Score, Problem Solving - Score, Memory - Score were [electro nically] signed by Lili Galdamez CNA on TueDec 23 2017 02:05:30 GMT-0500 (Central Daylight Time)
[2017-12-23] MEDS: AMLODIPINE 5 MG TAB PO SCH (08:27)
[2017-12-23] MEDS: DOCUSATE NA 100 MG CAP PO SCH (08:27)
[2017-12-23] MEDS: RIVAROXABAN 10 MG TABLET PO SCH (08:27)
[2017-12-23] MEDS: FE SULF/FA/VIT B COMP & C TAB PO SCH (08:27)
[2017-12-23] MEDS: PROMOD 30 ML DOSE PO SCH ×2 (08:28→20:10)
[2017-12-23] MEDS: [UNRECOGNIZED DRUG - OTHER] EACH EYE SCH (08:28)
--- NOTE | 2017-12-23 09:43 | P.RH.PN ---
Estimated Length of Stay: 15 Expected Discharge Date: 12/29/17 Discharge Disposition Plan: Home Family Support: Yes Group Home Goal: Mobility, Transfers, Self Care Vital Signs: Last Vital Signs Temp 97.7 F 12/23/17 07:30 Pulse 73 12/23/17 08:27 Resp 16 12/23/17 07:30 BP 147/71 H 12/23/17 08:27 Pulse Ox 97 12/23/17 07:30 Laboratory: Laboratory Last Values WBC 7.7 K/uL (4.3-10.9) D 12/22/17 06:09 RBC 3.58 M/uL (3.86-4.86) L 12/22/17 06:09 Hgb 10.3 g/dL (12.0-15.0) L 12/22/17 06:09 Hct 31.5 % (36.0-45.0) L 12/22/17 06:09 MCV 88.0 fL (80-100) 12/22/17 06:09 MCH 28.7 pg (27.0-35.0) 12/22/17 06:09 MCHC 32.6 g/dL (32.0-36.0) 12/22/17 06:09 RDW 14.7 % (12.1-15.2) 12/22/17 06:09 Plt Count 413 K/uL (152-406) H D 12/22/17 06:09 MPV 8.4 fL (7.6-11.3) 12/22/17 06:09 Neutrophils % 48.3 % (41.7-73.7) 12/22/17 06:09 Lymphocytes % 35.0 % (15.3-44.8) 12/22/17 06:09 Monocytes % 10.1 % (3.3-12.3) 12/22/17 06:09 Eosinophils % 5.3 % (0-4.4) H 12/22/17 06:09 Basophils % 1.3 % (0-1.3) 12/22/17 06:09 Absolute Neutrophils 3.7 K/uL (1.8-8.0) 12/22/17 06:09 Absolute Lymphocytes 2.7 K/uL (0.7-4.9) 12/22/17 06:09 Absolute Monocytes 0.8 K/uL (0.1-1.3) 12/22/17 06:09 Absolute Eosinophils 0.4 K/uL (0-0.5) 12/22/17 06:09 Absolute Basophils 0.1 K/uL (0-0.5) 12/22/17 06:09 Sodium 134 mEq/L (135-145) L 12/22/17 06:09 Potassium 4.5 mEq/L (3.6-5.0) 12/22/17 06:09 Chloride 102 mEq/L (101-111) 12/22/17 06:09 Carbon Dioxide 28 mEq/L (21-31) 12/22/17 06:09 BUN 29 mg/dL (6-20) H 12/22/17 06:09 Creatinine 0.71 mg/dL (0.44-1.00) 12/22/17 06:09 Estimated GFR 79 mL/min (=/>90) L 12/22/17 06:09 Glucose 98 mg/dL (65-120) 12/22/17 06:09 Calcium 9.1 mg/dL (8.5-10.5) 12/22/17 06:09 Magnesium 2.1 mg/dL (1.8-2.5) 12/16/17 06:02 Albumin 3.1 g/dL (3.2-5.5) L 12/22/17 06:09 Prealbumin 22.8 mg/dl (18-38) 12/22/17 06:09 Weight: 139 lb 8 oz Wound Present: No Closed Surgical Incision Present: Yes Negative Pressure Wound Therapy Present: No Physician Update: Her Hgb is stable with hemocyte plus. Her albumin has improved with promod. She has a UTI and completed Augmentin 12/20/17. She will require a walker and wheelchair due to her touch down weight bearing status. Functional Improvement: Patient has met all short-term goals at this time and is progressing well toward long-term goals. Patient's technique and safety awareness continue to improve w/ each session. Functional Improvement Occupational Therapy: pt can benifit further therapy to address pt's safety using A/E for LB dressing. Cont increase pt's UB strength for safe and functional transfers maintaining TDWB on the left. Cont increasing pt's static standing balance for clothing mgmt, and Iadl tasks. cont with the POC and the goals by the supervising OTR Summary: Patient's care plan and technician terminal and repeater goals have been reviewed and revised as necessary. Please see the Rehabilitation Signature page for all necessary signatures.
--- NOTE | 2017-12-23 14:36 | FAST ---
SHIFT START DATE/TIME: 12/23/2017 07:00 (CDT) SHIFT END DATE/TIME: 12/23/2017 19:00 (CDT) NAME KYLIE CASE DATE OF : 1940 DATE OF ADMISSION: 12/15/2017 13:36 (CDT) PHONE: AGE: 77 N# [id number] GENDER: Female ENCOUNTER PHYSICIAN: Dr. Maximiliano Bernal M.D. ADMISSION DIAGNOSIS: - Orthopaedic Disorders 08 - Unilateral Hip Fracture (08.11) Impacted left subcapital femoral neck fracture. EATING: EATING - STEP 1: Does the patient require assistance when eating? No. EATING - SCORE: 7-IND GROOMING: Comb/brush hair Oral care Wash, rinse, and dry hands GROOMING - STEP 1: Does the patient require assistance when grooming? Yes. GROOMING - STEP 2: Does the patient require the assistance of a helper? No. The patient only requires an assistive devic e, OR takes more than reasonable time to groom, OR there is a concern for safety as the patient groom s GROOMING - SCORE: 6-DARLING BATHING: Activity did not occur on this shift BATHING - SCORE: 0-UNK DRESSING - UPPER BODY: Activity did not occur on this shift ARTICLES SCORE Total number of steps: 0 DRESSING - UPPER BODY - SCORE: 0-UNK DRESSING - LOWER BODY: Activity did not occur on this shift ARTICLES SCORE Total number of steps: 0 DRESSING - LOWER BODY - SCORE: 0-UNK TOILETING: TOILETING - STEP 1: Does the patient require assistance with toileting? Yes. TOILETING - STEP 2: Does the patient require the assistance of a helper? Yes. TOILETING - STEP 3: How much assistance does the patient require from the helper? Only supervision TOILETING - SCORE: 5-SUP BLADDER MANAGEMENT: BLADDER MANAGEMENT - STEP 1: Does the patient control the bladder completely and intentionally without equipment or devices or med ications, and is always continent? Yes. BLADDER MANAGEMENT - SCORE: 7-IND BLADDER MANAGEMENT - FREQUENCY OF ACCIDENTS: BLADDER MANAGEMENT(FA) - STEP 1: How many accidents has the patient had during the current shift? 0 BOWEL MANAGEMENT: BOWEL MANAGEMENT - STEP 1: Does the patient control bowels completely and intentionally without equipment devices or medications AND is always continent? No. BOWEL MANAGEMENT - STEP 2: Does the patient require the assistance of a helper? No, patient requires medication for control such as stool softeners, suppositories, laxatives, enemas, or OTC medications BOWEL MANAGEMENT - SCORE: 6-DARLING BOWEL MANAGEMENT - FREQUENCY OF ACCIDENTS: BOWEL MANAGEMENT(FA) - STEP 1: How many accidents has the patient had during the current shift? 0 TRANSFERS: BED, CHAIR, WHEELCHAIR: TRANSFERS: BED, CHAIR, WHEELCHAIR - STEP 1: Does the patient require assistance with bed, chair, or wheelchair transfers? Yes. TRANSFERS: BED, CHAIR, WHEELCHAIR - STEP 2: Does the patient require the assistance of a helper? Yes. TRANSFERS: BED, CHAIR, WHEELCHAIR - STEP 3: How much assistance does the patient require from the helper? Steadying/guiding assistance TRANSFERS: BED, CHAIR, WHEELCHAIR - SCORE: 4-MIN TRANSFERS: TOILET: TRANSFERS: TOILET - STEP 1: Does the patient require assistance with toilet transfers? Yes. TRANSFERS: TOILET - STEP 2: Does the patient require the assistance of a helper? Yes. TRANSFERS: TOILET - STEP 3: How much assistance does the patient require from the helper? Only supervision, cuing, coaxing, OR he lp to set out transfer equipment or to lock brakes and/or lift foot rests TRANSFERS: TOILET - SCORE: 5-SUP TRANSFERS: SHOWER: Activity did not occur on this shift TRANSFERS: SHOWER - SCORE: 0-UNK TRANSFERS: TUB: Activity did not occur on this shift TRANSFERS: TUB - SCORE: 0-UNK LOCOMOTION: WALK: Activity did not occur on this shift LOCOMOTION: WALK - SCORE: 0-UNK LOCOMOTION: WHEELCHAIR: Activity did not occur on this shift LOCOMOTION: WHEELCHAIR - SCORE: 0-UNK COMPREHENSION: COMPREHENSION - SCORE: 0-UNK EXPRESSION EXPRESSION - SCORE: 0-UNK SOCIAL INTERACTION: SOCIAL INTERACTION - SCORE: 0-UNK PROBLEM SOLVING: PROBLEM SOLVING - SCORE: 0-UNK MEMORY: MEMORY - SCORE: 0-UNK SIGNATURE PANEL: The following modified sections: Eating - Score, Grooming - Score, Bathing - Score, Dressing - Upper Body - Score, Dressing - Lower Body - Score, Toileting - Score, Bladder Management - Score, Bowel Man agement - Score, Transfers: Bed, Chair, Wheelchair - Score, Transfers: Toilet - Score, Transfers: Leona wer - Score, Transfers: Tub - Score, Locomotion: Walk - Score, Locomotion: Wheelchair - Score, Compre hension - Score, Expression - Score, Social Interaction - Score, Problem Solving - Score, Memory - Sc ore were [electronically] signed by Zach Rosales RN on TueDec 23 2017 13:38:15 [facility]-0500 (Central aylight Time)
--- NOTE | 2017-12-23 15:33 | FAST ---
ENCOUNTER DATE AND TIME: 12/23/2017 08:00 (CDT) NAME KYLIE CASE DATE OF : 1940 DATE OF ADMISSION: 12/15/2017 13:36 (CDT) PHONE: AGE: 77 N# [id number] GENDER: Female ENCOUNTER PHYSICIAN: Dr. Maximiliano Bernal M.D. ADMISSION DIAGNOSIS: - Orthopaedic Disorders 08 - Unilateral Hip Fracture (08.11) Impacted left subcapital femoral neck fracture. EATING: Activity did not occur on this shift EATING - SCORE: 0-UNK GROOMING: Comb/brush hair Oral care Wash, rinse, and dry face Wash, rinse, and dry hands GROOMING - STEP 1: Does the patient require assistance when grooming? No. GROOMING - SCORE: 7-IND BATHING: Abdomen Buttocks Chest Left arm Left lower leg and foot Left upper leg Perineal area Right arm Right lower leg and foot Right upper leg BATHING - STEP 1: Does the patient require assistance when bathing? Yes. BATHING - STEP 2: Does the patient require the assistance of a helper? Yes. BATHING - STEP 3: How much assistance does the patient require from the helper? Only prior preparation such as putting bathing equipment within reach, turning on water, checking water temperature BATHING - SCORE: 5-SUP DRESSING - UPPER BODY: T-shirt/pullover shirt (four steps) ARTICLES SCORE Total number of steps: 4 DRESSING - UPPER BODY - STEP 1: Does the patient require help when dressing above the waist? No. DRESSING - UPPER BODY - SCORE: 7-IND DRESSING - LOWER BODY: Sock - Left foot (one step) Sock - Right foot (one step) Underwear (three steps) ARTICLES SCORE Total number of steps: 5 DRESSING - LOWER BODY - STEP 1: Does the patient require help when dressing below the waist? Yes. DRESSING - LOWER BODY - STEP 2: Does the patient require the assistance of a helper? Yes. DRESSING - LOWER BODY - STEP 3: Does the helper touch the patient while dressing? No. DRESSING - LOWER BODY - SCORE: 5-SUP TOILETING: Activity did not occur on this shift TOILETING - SCORE: 0-UNK BLADDER MANAGEMENT: Activity did not occur on this shift BLADDER MANAGEMENT - SCORE: 7-IND BOWEL MANAGEMENT: Activity did not occur on this shift BOWEL MANAGEMENT - SCORE: 7-IND TRANSFERS: BED, CHAIR, WHEELCHAIR: Activity did not occur on this shift TRANSFERS: BED, CHAIR, WHEELCHAIR - SCORE: 0-UNK TRANSFERS: TOILET: Activity did not occur on this shift TRANSFERS: TOILET - SCORE: 0-UNK TRANSFERS: SHOWER: Activity did not occur on this shift TRANSFERS: SHOWER - SCORE: 0-UNK TRANSFERS: TUB: TRANSFERS: TUB - STEP 1: Does the patient require assistance with tub transfers? Yes. TRANSFERS: TUB - STEP 2: Does the patient require the assistance of a helper? Yes. TRANSFERS: TUB - STEP 3: How much assistance does the patient require from the helper? Only supervision, cuing, coaxing, or he lp to set out transfer equipment or to lock brakes and/or lift foot rests TRANSFERS: TUB - SCORE: 5-SUP LOCOMOTION: WALK: Activity did not occur on this shift LOCOMOTION: WALK - SCORE: 0-UNK LOCOMOTION: WHEELCHAIR: Activity did not occur on this shift LOCOMOTION: WHEELCHAIR - SCORE: 0-UNK LOCOMOTION: STAIRS: Activity did not occur on this shift LOCOMOTION: STAIRS - SCORE: 0-UNK COMPREHENSION: COMPREHENSION: TYPE: Both COMPREHENSION - STEP 1: Does the patient require help to understand complex and abstract ideas (such as current events, finan kelley, discharge planning, medical issues, relationships, etc)? No. COMPREHENSION - STEP 2: Does the patient need extra time, require an assistive device (such as glasses, hearing aids, or an a ugmentative communication system), OR does s/he have mild difficulty expressing complex and abstract ideas (including mild dysarthria or mild word-finding problems)? Yes. COMPREHENSION - SCORE: 6-DARLING EXPRESSION EXPRESSION: TYPE: Non-Vocal EXPRESSION - STEP 1: Does the patient require help expressing complex and abstract ideas (such as current events, finances , discharge planning, medical issues, relationships, etc)? No. EXPRESSION - STEP 2: Does the patient need extra time, require an assistive device (such as augmentive communication syste m or a communication board), OR does s/he have mild difficulty expressing complex and abstract ideas (including mild dysarthria or mild word-find problems)? No. EXPRESSION - SCORE: 7-IND SOCIAL INTERACTION: SOCIAL INTERACTION - STEP 1: Does the patient require a helper to interact with others in social and therapeutic situations? No. SOCIAL INTERACTION - STEP 2: Does the patient need extra time in social situations, OR does s/he interact with staff, other patien ts, and family members ONLY in structured environments, OR does s/he require medication for social in teraction? No. SOCIAL INTERACTION - SCORE: 7-IND PROBLEM SOLVING: PROBLEM SOLVING - STEP 1: Does the patient need help to solve complex problems such as managing a checking account or confronti ng interpersonal problems? No. PROBLEM SOLVING - STEP 2: Does the patient require extra time to make decisions or solve problems, OR does s/he have slight dif ficulty reading, initiating, or self-correcting in unfamiliar situations? No. PROBLEM SOLVING - SCORE: 7-IND MEMORY: MEMORY - STEP 1: Does the patient need help to remember frequently encountered people, daily routines, and executing r equests? No. MEMORY - STEP 2: Does the patient have slight difficulty recognizing frequently encountered people, daily routines, or executing requests without the need for repetition or using self-initiated or environmental cues to remember? No. MEMORY - SCORE: 7-IND SIGNATURE PANEL: The following modified sections: Eating - Score, Grooming - Score, Bathing - Score, Dressing - Upper Body - Score, Dressing - Lower Body - Score, Toileting - Score, Transfers: Bed, Chair, Wheelchair - S core, Transfers: Toilet - Score, Transfers: Shower - Score, Transfers: Tub - Score, Comprehension - S core, Expression - Score, Social Interaction - Score, Problem Solving - Score, Memory - Score were [e lectronically] signed by JENNIFFER Irving on TueDec 23 2017 14:35:14 [facility]-0500 (formerly [facility])
--- NOTE | 2017-12-23 16:36 | FAST ---
ENCOUNTER DATE AND TIME: 12/23/2017 08:00 (CDT) NAME KYLIE CASE DATE OF : 1940 DATE OF ADMISSION: 12/15/2017 13:36 (CDT) PHONE: AGE: 77 N# [id number] GENDER: Female ENCOUNTER PHYSICIAN: Dr. Maximiliano Bernal M.D. ADMISSION DIAGNOSIS: - Orthopaedic Disorders 08 - Unilateral Hip Fracture (08.11) Impacted left subcapital femoral neck fracture. EATING: Activity did not occur on this shift EATING - SCORE: 0-UNK GROOMING: Activity did not occur on this shift GROOMING - SCORE: 0-UNK BATHING: Activity did not occur on this shift BATHING - SCORE: 0-UNK DRESSING - UPPER BODY: Activity did not occur on this shift ARTICLES SCORE Total number of steps: 0 DRESSING - UPPER BODY - SCORE: 0-UNK DRESSING - LOWER BODY: Activity did not occur on this shift ARTICLES SCORE Total number of steps: 0 DRESSING - LOWER BODY - SCORE: 0-UNK TOILETING: Activity did not occur on this shift TOILETING - SCORE: 0-UNK BLADDER MANAGEMENT: Activity did not occur on this shift BLADDER MANAGEMENT - SCORE: 7-IND BOWEL MANAGEMENT: Activity did not occur on this shift BOWEL MANAGEMENT - SCORE: 7-IND TRANSFERS: BED, CHAIR, WHEELCHAIR: TRANSFERS: BED, CHAIR, WHEELCHAIR - STEP 1: Does the patient require assistance with bed, chair, or wheelchair transfers? Yes. TRANSFERS: BED, CHAIR, WHEELCHAIR - STEP 2: Does the patient require the assistance of a helper? No. Patient only requires an assistive device fo r bed, chair, wheelchair transfers such as a sliding board, grab bar, or brace, OR s/he takes more th an reasonable time, OR there is a safety concern when s/he performs the transfers TRANSFERS: BED, CHAIR, WHEELCHAIR - SCORE: 6-DARLING TRANSFERS: TOILET: Activity did not occur on this shift TRANSFERS: TOILET - SCORE: 0-UNK TRANSFERS: SHOWER: Activity did not occur on this shift TRANSFERS: SHOWER - SCORE: 0-UNK TRANSFERS: TUB: Activity did not occur on this shift TRANSFERS: TUB - SCORE: 0-UNK LOCOMOTION: WALK: LOCOMOTION: WALK - STEP 1: Does the patient need help to walk 150 feet? Yes. LOCOMOTION: WALK - STEP 2: How much assistance does the patient require to walk a minimum of 150 feet? Patient walks less than 1 50 feet - but more than 50 feet - with the assistance of only one helper LOCOMOTION: WALK - SCORE: 2-MAX LOCOMOTION: WHEELCHAIR: LOCOMOTION: WHEELCHAIR - STEP 1: Does the patient need help to go 150 feet in a wheelchair? No. LOCOMOTION: WHEELCHAIR - SCORE: 6-DARLING LOCOMOTION: STAIRS: Activity did not occur on this shift LOCOMOTION: STAIRS - SCORE: 0-UNK COMPREHENSION: COMPREHENSION - SCORE: 0-UNK EXPRESSION EXPRESSION - SCORE: 0-UNK SOCIAL INTERACTION: SOCIAL INTERACTION - SCORE: 0-UNK PROBLEM SOLVING: PROBLEM SOLVING - SCORE: 0-UNK MEMORY: MEMORY - SCORE: 0-UNK SIGNATURE PANEL: The following modified sections: Transfers: Bed, Chair, Wheelchair - Score, Transfers: Toilet - Score , Locomotion: Walk - Score, Locomotion: Wheelchair - Score, Locomotion: Stairs - Score were [mervat watson] signed by Herman Perez PTA on TueDec 23 2017 15:37:44 [facility]-0500 (Central Daylight Time)
[2017-12-23] MEDS: TRAVOPROST 0.004% EACH EYE SCH (20:10)
--- NOTE | 2017-12-24 02:34 | FAST ---
SHIFT START DATE/TIME: 12/23/2017 19:00 (CDT) SHIFT END DATE/TIME: 12/24/2017 07:00 (CDT) NAME KYLIE CASE DATE OF : 1940 DATE OF ADMISSION: 12/15/2017 13:36 (CDT) PHONE: AGE: 77 N# [id number] GENDER: Female ENCOUNTER PHYSICIAN: Dr. Maximiliano Bernal M.D. ADMISSION DIAGNOSIS: - Orthopaedic Disorders 08 - Unilateral Hip Fracture (08.11) Impacted left subcapital femoral neck fracture. EATING: Activity did not occur on this shift EATING - SCORE: 0-UNK GROOMING: Wash, rinse, and dry face Wash, rinse, and dry hands GROOMING - STEP 1: Does the patient require assistance when grooming? Yes. GROOMING - STEP 2: Does the patient require the assistance of a helper? Yes. GROOMING - STEP 3: How much assistance does the patient require from the helper? Only prior equipment preparation/set up from the helper GROOMING - SCORE: 5-SUP BATHING: Activity did not occur on this shift BATHING - SCORE: 0-UNK DRESSING - UPPER BODY: Activity did not occur on this shift ARTICLES SCORE Total number of steps: 0 DRESSING - UPPER BODY - SCORE: 0-UNK DRESSING - LOWER BODY: Activity did not occur on this shift ARTICLES SCORE Total number of steps: 0 DRESSING - LOWER BODY - SCORE: 0-UNK TOILETING: TOILETING - STEP 1: Does the patient require assistance with toileting? Yes. TOILETING - STEP 2: Does the patient require the assistance of a helper? Yes. TOILETING - STEP 3: How much assistance does the patient require from the helper? Only supervision TOILETING - SCORE: 5-SUP BLADDER MANAGEMENT: BLADDER MANAGEMENT - STEP 1: Does the patient control the bladder completely and intentionally without equipment or devices or med ications, and is always continent? No. BLADDER MANAGEMENT - STEP 2: Does the patient require the assistance of a helper? Yes. BLADDER MANAGEMENT - STEP 3: How much assistance does the patient require from the helper? Only supervision, stand-by, cuing, or c oaxing BLADDER MANAGEMENT - SCORE: 5-SUP BOWEL MANAGEMENT: BOWEL MANAGEMENT - STEP 1: Does the patient control bowels completely and intentionally without equipment devices or medications AND is always continent? No. BOWEL MANAGEMENT - STEP 2: Does the patient require the assistance of a helper? No, patient requires and manages independently a n assistive device such as a bedpan, bedside commode, absorbent pad, incontinent device, or collectin g device BOWEL MANAGEMENT - SCORE: 6-DARLING TRANSFERS: BED, CHAIR, WHEELCHAIR: TRANSFERS: BED, CHAIR, WHEELCHAIR - STEP 1: Does the patient require assistance with bed, chair, or wheelchair transfers? Yes. TRANSFERS: BED, CHAIR, WHEELCHAIR - STEP 2: Does the patient require the assistance of a helper? Yes. TRANSFERS: BED, CHAIR, WHEELCHAIR - STEP 3: How much assistance does the patient require from the helper? Lifting of the legs TRANSFERS: BED, CHAIR, WHEELCHAIR - STEP 4: How many legs does the patient require the helper to lift? both legs TRANSFERS: BED, CHAIR, WHEELCHAIR - SCORE: 3-MOD TRANSFERS: TOILET: TRANSFERS: TOILET - STEP 1: Does the patient require assistance with toilet transfers? Yes. TRANSFERS: TOILET - STEP 2: Does the patient require the assistance of a helper? Yes. TRANSFERS: TOILET - STEP 3: How much assistance does the patient require from the helper? Only supervision, cuing, coaxing, OR he lp to set out transfer equipment or to lock brakes and/or lift foot rests TRANSFERS: TOILET - SCORE: 5-SUP TRANSFERS: SHOWER: Activity did not occur on this shift TRANSFERS: SHOWER - SCORE: 0-UNK TRANSFERS: TUB: Activity did not occur on this shift TRANSFERS: TUB - SCORE: 0-UNK LOCOMOTION: WALK: Activity did not occur on this shift LOCOMOTION: WALK - SCORE: 0-UNK LOCOMOTION: WHEELCHAIR: Activity did not occur on this shift LOCOMOTION: WHEELCHAIR - SCORE: 0-UNK COMPREHENSION: COMPREHENSION - STEP 1: Does the patient require help to understand complex and abstract ideas (such as current events, finan kelley, discharge planning, medical issues, relationships, etc)? No. COMPREHENSION - STEP 2: Does the patient need extra time, require an assistive device (such as glasses, hearing aids, or an a ugmentative communication system), OR does s/he have mild difficulty expressing complex and abstract ideas (including mild dysarthria or mild word-finding problems)? Yes. COMPREHENSION - SCORE: 6-DARLING EXPRESSION EXPRESSION - STEP 1: Does the patient require help expressing complex and abstract ideas (such as current events, finances , discharge planning, medical issues, relationships, etc)? No. EXPRESSION - STEP 2: Does the patient need extra time, require an assistive device (such as augmentive communication syste m or a communication board), OR does s/he have mild difficulty expressing complex and abstract ideas (including mild dysarthria or mild word-find problems)? No. EXPRESSION - SCORE: 7-IND SOCIAL INTERACTION: SOCIAL INTERACTION - STEP 1: Does the patient require a helper to interact with others in social and therapeutic situations? No. SOCIAL INTERACTION - STEP 2: Does the patient need extra time in social situations, OR does s/he interact with staff, other patien ts, and family members ONLY in structured environments, OR does s/he require medication for social in teraction? No. SOCIAL INTERACTION - SCORE: 7-IND PROBLEM SOLVING: PROBLEM SOLVING - STEP 1: Does the patient need help to solve complex problems such as managing a checking account or confronti ng interpersonal problems? No. PROBLEM SOLVING - STEP 2: Does the patient require extra time to make decisions or solve problems, OR does s/he have slight dif ficulty reading, initiating, or self-correcting in unfamiliar situations? Yes, patient needs extra ti me. PROBLEM SOLVING - SCORE: 6-DARLING MEMORY: MEMORY - STEP 1: Does the patient need help to remember frequently encountered people, daily routines, and executing r equests? No. MEMORY - STEP 2: Does the patient have slight difficulty recognizing frequently encountered people, daily routines, or executing requests without the need for repetition or using self-initiated or environmental cues to remember? No. MEMORY - SCORE: 7-IND SIGNATURE PANEL: The following modified sections: Eating - Score, Grooming - Score, Dressing - Upper Body - Score, Tray ssing - Lower Body - Score, Toileting - Score, Bladder Management - Score, Bowel Management - Score, Transfers: Bed, Chair, Wheelchair - Score, Transfers: Toilet - Score, Transfers: Shower - Score, Smart sfers: Tub - Score, Locomotion: Walk - Score, Locomotion: Wheelchair - Score, Comprehension - Score, Expression - Score, Social Interaction - Score, Problem Solving - Score, Memory - Score were [electro nically] signed by Lili Galdamez CNA on Sat Dec 24 2017 01:36:13 T-0500 (Central Daylight Time)
[2017-12-24 05:36] VITALS: BMI 24.0
[2017-12-24] MEDS: AMLODIPINE 5 MG TAB PO SCH (08:00)
[2017-12-24] MEDS: [UNRECOGNIZED DRUG - OTHER] EACH EYE SCH (08:20)
[2017-12-24] MEDS: FE SULF/FA/VIT B COMP & C TAB PO SCH (08:21)
[2017-12-24] MEDS: RIVAROXABAN 10 MG TABLET PO SCH (08:21)
[2017-12-24] MEDS: DOCUSATE NA 100 MG CAP PO SCH (08:21)
[2017-12-24] MEDS: HYDROCODONE/APAP 7.5/325 MG TAB PO PRN ×3 (08:21→19:54)
[2017-12-24] MEDS: PROMOD 30 ML DOSE PO SCH ×2 (08:21→19:54)
--- NOTE | 2017-12-24 10:15 | FAST ---
SHIFT START DATE/TIME: 12/24/2017 07:00 (CDT) SHIFT END DATE/TIME: 12/24/2017 19:00 (CDT) NAME KYLIE CASE DATE OF : 1940 DATE OF ADMISSION: 12/15/2017 13:36 (CDT) PHONE: AGE: 77 N# [id number] GENDER: Female ENCOUNTER PHYSICIAN: Dr. Maximiliano Bernal M.D. ADMISSION DIAGNOSIS: - Orthopaedic Disorders 08 - Unilateral Hip Fracture (08.11) Impacted left subcapital femoral neck fracture. EATING: EATING - STEP 1: Does the patient require assistance when eating? Yes. EATING - STEP 2: Does the patient require the assistance of a helper? Yes. EATING - STEP 3: Does the patient perform half or more of the eating tasks? Yes. EATING - STEP 4: Does the patient need only supervision, cuing, coaxing OR help to apply an orthosis OR help to cut fo od, open containers, pour liquids, or butter bread? Yes. EATING - SCORE: 5-SUP GROOMING: Comb/brush hair Oral care Wash, rinse, and dry hands GROOMING - STEP 1: Does the patient require assistance when grooming? Yes. GROOMING - STEP 2: Does the patient require the assistance of a helper? No. The patient only requires an assistive devic e, OR takes more than reasonable time to groom, OR there is a concern for safety as the patient groom s GROOMING - SCORE: 6-DARLING BATHING: Activity did not occur on this shift BATHING - SCORE: 0-UNK DRESSING - UPPER BODY: Activity did not occur on this shift ARTICLES SCORE Total number of steps: 0 DRESSING - UPPER BODY - SCORE: 0-UNK DRESSING - LOWER BODY: Activity did not occur on this shift ARTICLES SCORE Total number of steps: 0 DRESSING - LOWER BODY - SCORE: 0-UNK TOILETING: TOILETING - STEP 1: Does the patient require assistance with toileting? Yes. TOILETING - STEP 2: Does the patient require the assistance of a helper? Yes. TOILETING - STEP 3: How much assistance does the patient require from the helper? Hands-on assistance from the helper TOILETING - STEP 4: Of the 3 tasks: 1) Adjusting clothing prior to use, 2) Cleansing of perineal area, 3) Adjusting clot joel after use; How many tasks does the patient perform WITHOUT assistance of the helper? Three tasks with steadying assistance from the helper TOILETING - SCORE: 4-MIN BLADDER MANAGEMENT: BLADDER MANAGEMENT - STEP 1: Does the patient control the bladder completely and intentionally without equipment or devices or med ications, and is always continent? No. BLADDER MANAGEMENT - STEP 2: Does the patient require the assistance of a helper? No, patient requires and independently uses an a ssistive device, such as a urinal, bedpan, bedside commode, catheter, absorbent pad, or collecting de vice BLADDER MANAGEMENT - SCORE: 6-DARLING BOWEL MANAGEMENT: BOWEL MANAGEMENT - STEP 1: Does the patient control bowels completely and intentionally without equipment devices or medications AND is always continent? Yes. BOWEL MANAGEMENT - SCORE: 7-IND TRANSFERS: BED, CHAIR, WHEELCHAIR: TRANSFERS: BED, CHAIR, WHEELCHAIR - STEP 1: Does the patient require assistance with bed, chair, or wheelchair transfers? Yes. TRANSFERS: BED, CHAIR, WHEELCHAIR - STEP 2: Does the patient require the assistance of a helper? Yes. TRANSFERS: BED, CHAIR, WHEELCHAIR - STEP 3: How much assistance does the patient require from the helper? Steadying/guiding assistance TRANSFERS: BED, CHAIR, WHEELCHAIR - SCORE: 4-MIN TRANSFERS: TOILET: TRANSFERS: TOILET - STEP 1: Does the patient require assistance with toilet transfers? Yes. TRANSFERS: TOILET - STEP 2: Does the patient require the assistance of a helper? Yes. TRANSFERS: TOILET - STEP 3: How much assistance does the patient require from the helper? Patient performs half or more of the tr ansferring tasks TRANSFERS: TOILET - STEP 4: Does the patient need only incidental help such as contact guard or steadying during toilet transfer? Yes. TRANSFERS: TOILET - SCORE: 4-MIN TRANSFERS: SHOWER: Activity did not occur on this shift TRANSFERS: SHOWER - SCORE: 0-UNK TRANSFERS: TUB: Activity did not occur on this shift TRANSFERS: TUB - SCORE: 0-UNK LOCOMOTION: WALK: Activity did not occur on this shift LOCOMOTION: WALK - SCORE: 0-UNK LOCOMOTION: WHEELCHAIR: Activity did not occur on this shift LOCOMOTION: WHEELCHAIR - SCORE: 0-UNK COMPREHENSION: COMPREHENSION - SCORE: 0-UNK EXPRESSION EXPRESSION - SCORE: 0-UNK SOCIAL INTERACTION: SOCIAL INTERACTION - SCORE: 0-UNK PROBLEM SOLVING: PROBLEM SOLVING - SCORE: 0-UNK MEMORY: MEMORY - SCORE: 0-UNK SIGNATURE PANEL: The following modified sections: Eating - Score, Grooming - Score, Bathing - Score, Dressing - Upper Body - Score, Dressing - Lower Body - Score, Toileting - Score, Bladder Management - Score, Bowel Man agement - Score, Transfers: Bed, Chair, Wheelchair - Score, Transfers: Toilet - Score, Transfers: Leona wer - Score, Transfers: Tub - Score, Locomotion: Walk - Score, Locomotion: Wheelchair - Score, Compre hension - Score, Expression - Score, Social Interaction - Score, Problem Solving - Score, Memory - Sc ore were [electronically] signed by Billy Akbar on Sat Dec 24 2017 09:17:16 GMT-0500 (Central Daylight Time)
--- NOTE | 2017-12-24 14:27 | FAST ---
ENCOUNTER DATE AND TIME: 12/24/2017 08:00 (CDT) NAME KYLIE CASE DATE OF : 1940 DATE OF ADMISSION: 12/15/2017 13:36 (CDT) PHONE: AGE: 77 N# [id number] GENDER: Female ENCOUNTER PHYSICIAN: Dr. Maximiliano Bernal M.D. ADMISSION DIAGNOSIS: - Orthopaedic Disorders 08 - Unilateral Hip Fracture (08.11) Impacted left subcapital femoral neck fracture. EATING: Activity did not occur on this shift EATING - SCORE: 0-UNK GROOMING: Activity did not occur on this shift GROOMING - SCORE: 0-UNK BATHING: Activity did not occur on this shift BATHING - SCORE: 0-UNK DRESSING - UPPER BODY: Activity did not occur on this shift ARTICLES SCORE Total number of steps: 0 DRESSING - UPPER BODY - SCORE: 0-UNK DRESSING - LOWER BODY: Activity did not occur on this shift ARTICLES SCORE Total number of steps: 0 DRESSING - LOWER BODY - SCORE: 0-UNK TOILETING: Activity did not occur on this shift TOILETING - SCORE: 0-UNK BLADDER MANAGEMENT: Activity did not occur on this shift BLADDER MANAGEMENT - SCORE: 7-IND BOWEL MANAGEMENT: Activity did not occur on this shift BOWEL MANAGEMENT - SCORE: 7-IND TRANSFERS: BED, CHAIR, WHEELCHAIR: Activity did not occur on this shift TRANSFERS: BED, CHAIR, WHEELCHAIR - SCORE: 0-UNK TRANSFERS: TOILET: Activity did not occur on this shift TRANSFERS: TOILET - SCORE: 0-UNK TRANSFERS: SHOWER: Activity did not occur on this shift TRANSFERS: SHOWER - SCORE: 0-UNK TRANSFERS: TUB: Activity did not occur on this shift TRANSFERS: TUB - SCORE: 0-UNK LOCOMOTION: WALK: Activity did not occur on this shift LOCOMOTION: WALK - SCORE: 0-UNK LOCOMOTION: WHEELCHAIR: Activity did not occur on this shift LOCOMOTION: WHEELCHAIR - SCORE: 0-UNK LOCOMOTION: STAIRS: Activity did not occur on this shift LOCOMOTION: STAIRS - SCORE: 0-UNK COMPREHENSION: COMPREHENSION: TYPE: Both COMPREHENSION - STEP 1: Does the patient require help to understand complex and abstract ideas (such as current events, finan kelley, discharge planning, medical issues, relationships, etc)? No. COMPREHENSION - STEP 2: Does the patient need extra time, require an assistive device (such as glasses, hearing aids, or an a ugmentative communication system), OR does s/he have mild difficulty expressing complex and abstract ideas (including mild dysarthria or mild word-finding problems)? Yes. COMPREHENSION - SCORE: 6-DARLING EXPRESSION EXPRESSION: TYPE: Non-Vocal EXPRESSION - STEP 1: Does the patient require help expressing complex and abstract ideas (such as current events, finances , discharge planning, medical issues, relationships, etc)? No. EXPRESSION - STEP 2: Does the patient need extra time, require an assistive device (such as augmentive communication syste m or a communication board), OR does s/he have mild difficulty expressing complex and abstract ideas (including mild dysarthria or mild word-find problems)? No. EXPRESSION - SCORE: 7-IND SOCIAL INTERACTION: SOCIAL INTERACTION - STEP 1: Does the patient require a helper to interact with others in social and therapeutic situations? No. SOCIAL INTERACTION - STEP 2: Does the patient need extra time in social situations, OR does s/he interact with staff, other patien ts, and family members ONLY in structured environments, OR does s/he require medication for social in teraction? No. SOCIAL INTERACTION - SCORE: 7-IND PROBLEM SOLVING: PROBLEM SOLVING - STEP 1: Does the patient need help to solve complex problems such as managing a checking account or confronti ng interpersonal problems? No. PROBLEM SOLVING - STEP 2: Does the patient require extra time to make decisions or solve problems, OR does s/he have slight dif ficulty reading, initiating, or self-correcting in unfamiliar situations? No. PROBLEM SOLVING - SCORE: 7-IND MEMORY: MEMORY - STEP 1: Does the patient need help to remember frequently encountered people, daily routines, and executing r equests? No. MEMORY - STEP 2: Does the patient have slight difficulty recognizing frequently encountered people, daily routines, or executing requests without the need for repetition or using self-initiated or environmental cues to remember? No. MEMORY - SCORE: 7-IND SIGNATURE PANEL: The following modified sections: Eating - Score, Grooming - Score, Bathing - Score, Dressing - Upper Body - Score, Dressing - Lower Body - Score, Toileting - Score, Transfers: Bed, Chair, Wheelchair - S core, Transfers: Toilet - Score, Transfers: Shower - Score, Transfers: Tub - Score, Comprehension - S core, Expression - Score, Social Interaction - Score, Problem Solving - Score, Memory - Score were [e lectronically] signed by JENNIFFER Irving on Sat Dec 24 2017 13:29:47 T-0500 ([facility] Time)
[2017-12-24] MEDS: TRAVOPROST 0.004% EACH EYE SCH (19:59)
--- NOTE | 2017-12-25 01:02 | FAST ---
SHIFT START DATE/TIME: 12/24/2017 19:00 (CDT) SHIFT END DATE/TIME: 12/25/2017 07:00 (CDT) NAME KYLIE CASE DATE OF : 1940 DATE OF ADMISSION: 12/15/2017 13:36 (CDT) PHONE: AGE: 77 N# [id number] GENDER: Female ENCOUNTER PHYSICIAN: Dr. Maximiliano Bernal M.D. ADMISSION DIAGNOSIS: - Orthopaedic Disorders 08 - Unilateral Hip Fracture (08.11) Impacted left subcapital femoral neck fracture. EATING: EATING - STEP 1: Does the patient require assistance when eating? Yes. EATING - STEP 2: Does the patient require the assistance of a helper? No, patient only requires an assistive device, O R s/he takes more than reasonable time to eat, OR there is a safety concern, OR s/he requires modifie d food consistency EATING - SCORE: 6-DARLING GROOMING: Comb/brush hair Oral care Wash, rinse, and dry face Wash, rinse, and dry hands GROOMING - STEP 1: Does the patient require assistance when grooming? Yes. GROOMING - STEP 2: Does the patient require the assistance of a helper? No. The patient only requires an assistive devic e, OR takes more than reasonable time to groom, OR there is a concern for safety as the patient groom s GROOMING - SCORE: 6-DARLING BATHING: Activity did not occur on this shift BATHING - SCORE: 0-UNK DRESSING - UPPER BODY: Activity did not occur on this shift ARTICLES SCORE Total number of steps: 0 DRESSING - UPPER BODY - SCORE: 0-UNK DRESSING - LOWER BODY: Activity did not occur on this shift ARTICLES SCORE Total number of steps: 0 DRESSING - LOWER BODY - SCORE: 0-UNK TOILETING: TOILETING - STEP 1: Does the patient require assistance with toileting? Yes. TOILETING - STEP 2: Does the patient require the assistance of a helper? Yes. TOILETING - STEP 3: How much assistance does the patient require from the helper? Only supervision TOILETING - SCORE: 5-SUP BLADDER MANAGEMENT: BLADDER MANAGEMENT - STEP 1: Does the patient control the bladder completely and intentionally without equipment or devices or med ications, and is always continent? No. BLADDER MANAGEMENT - STEP 2: Does the patient require the assistance of a helper? Yes. BLADDER MANAGEMENT - STEP 3: How much assistance does the patient require from the helper? Only supervision, stand-by, cuing, or c oaxing BLADDER MANAGEMENT - SCORE: 5-SUP BLADDER MANAGEMENT - FREQUENCY OF ACCIDENTS: BLADDER MANAGEMENT(FA) - STEP 1: How many accidents has the patient had during the current shift? 0 BOWEL MANAGEMENT: BOWEL MANAGEMENT - STEP 1: Does the patient control bowels completely and intentionally without equipment devices or medications AND is always continent? No. BOWEL MANAGEMENT - STEP 2: Does the patient require the assistance of a helper? Yes. BOWEL MANAGEMENT - STEP 3: How much assistance does the patient require from the helper? Patient requires supervision, stand by, cueing, coaxing, or setup of equipment - placing within reach of patient and emptying device / bedpa nd or BSC bucket - to maintain either satisfactory bowel pattern or managing an external device such as an absorbent pad, colostomy bag / ileostomy bag BOWEL MANAGEMENT - SCORE: 5-SUP BOWEL MANAGEMENT - FREQUENCY OF ACCIDENTS: BOWEL MANAGEMENT(FA) - STEP 1: How many accidents has the patient had during the current shift? 0 TRANSFERS: BED, CHAIR, WHEELCHAIR: TRANSFERS: BED, CHAIR, WHEELCHAIR - STEP 1: Does the patient require assistance with bed, chair, or wheelchair transfers? Yes. TRANSFERS: BED, CHAIR, WHEELCHAIR - STEP 2: Does the patient require the assistance of a helper? Yes. TRANSFERS: BED, CHAIR, WHEELCHAIR - STEP 3: How much assistance does the patient require from the helper? Only supervision TRANSFERS: BED, CHAIR, WHEELCHAIR - SCORE: 5-SUP TRANSFERS: TOILET: TRANSFERS: TOILET - STEP 1: Does the patient require assistance with toilet transfers? Yes. TRANSFERS: TOILET - STEP 2: Does the patient require the assistance of a helper? Yes. TRANSFERS: TOILET - STEP 3: How much assistance does the patient require from the helper? Only supervision, cuing, coaxing, OR he lp to set out transfer equipment or to lock brakes and/or lift foot rests TRANSFERS: TOILET - SCORE: 5-SUP TRANSFERS: SHOWER: Activity did not occur on this shift TRANSFERS: SHOWER - SCORE: 0-UNK TRANSFERS: TUB: Activity did not occur on this shift TRANSFERS: TUB - SCORE: 0-UNK LOCOMOTION: WALK: Activity did not occur on this shift LOCOMOTION: WALK - SCORE: 0-UNK LOCOMOTION: WHEELCHAIR: Activity did not occur on this shift LOCOMOTION: WHEELCHAIR - SCORE: 0-UNK COMPREHENSION: COMPREHENSION: TYPE: Both COMPREHENSION - STEP 1: Does the patient require help to understand complex and abstract ideas (such as current events, finan kelley, discharge planning, medical issues, relationships, etc)? No. COMPREHENSION - STEP 2: Does the patient need extra time, require an assistive device (such as glasses, hearing aids, or an a ugmentative communication system), OR does s/he have mild difficulty expressing complex and abstract ideas (including mild dysarthria or mild word-finding problems)? Yes. COMPREHENSION - SCORE: 6-DARLING EXPRESSION EXPRESSION: TYPE: Both EXPRESSION - STEP 1: Does the patient require help expressing complex and abstract ideas (such as current events, finances , discharge planning, medical issues, relationships, etc)? No. EXPRESSION - STEP 2: Does the patient need extra time, require an assistive device (such as augmentive communication syste m or a communication board), OR does s/he have mild difficulty expressing complex and abstract ideas (including mild dysarthria or mild word-find problems)? No. EXPRESSION - SCORE: 7-IND SOCIAL INTERACTION: SOCIAL INTERACTION - STEP 1: Does the patient require a helper to interact with others in social and therapeutic situations? No. SOCIAL INTERACTION - STEP 2: Does the patient need extra time in social situations, OR does s/he interact with staff, other patien ts, and family members ONLY in structured environments, OR does s/he require medication for social in teraction? No. SOCIAL INTERACTION - SCORE: 7-IND PROBLEM SOLVING: PROBLEM SOLVING - STEP 1: Does the patient need help to solve complex problems such as managing a checking account or confronti ng interpersonal problems? No. PROBLEM SOLVING - STEP 2: Does the patient require extra time to make decisions or solve problems, OR does s/he have slight dif ficulty reading, initiating, or self-correcting in unfamiliar situations? No. PROBLEM SOLVING - SCORE: 7-IND MEMORY: MEMORY - STEP 1: Does the patient need help to remember frequently encountered people, daily routines, and executing r equests? No. MEMORY - STEP 2: Does the patient have slight difficulty recognizing frequently encountered people, daily routines, or executing requests without the need for repetition or using self-initiated or environmental cues to remember? No. MEMORY - SCORE: 7-IND SIGNATURE PANEL: The following modified sections: Eating - Score, Grooming - Score, Bathing - Score, Dressing - Upper Body - Score, Dressing - Lower Body - Score, Toileting - Score, Bladder Management - Score, Bowel Man agement - Score, Transfers: Bed, Chair, Wheelchair - Score, Transfers: Toilet - Score, Transfers: Leona wer - Score, Transfers: Tub - Score, Locomotion: Walk - Score, Locomotion: Wheelchair - Score, Compre hension - Score, Expression - Score, Social Interaction - Score, Problem Solving - Score, Memory - Sc ore were [electronically] signed by Keshia Gardiner C.[email or web address] on TueDec 25 2017 00:03:50 GMT-0500 ( Central Daylight Time)
[2017-12-25] MEDS: HYDROCODONE/APAP 7.5/325 MG TAB PO PRN ×2 (08:29→20:13)
[2017-12-25] MEDS: [UNRECOGNIZED DRUG - OTHER] EACH EYE SCH (08:30)
[2017-12-25] MEDS: AMLODIPINE 5 MG TAB PO SCH (08:30)
[2017-12-25] MEDS: RIVAROXABAN 10 MG TABLET PO SCH (08:30)
[2017-12-25] MEDS: FE SULF/FA/VIT B COMP & C TAB PO SCH (08:30)
[2017-12-25] MEDS: DOCUSATE NA 100 MG CAP PO SCH (08:30)
[2017-12-25] MEDS: PROMOD 30 ML DOSE PO SCH ×2 (08:31→20:12)
--- NOTE | 2017-12-25 10:22 | FAST ---
SHIFT START DATE/TIME: 12/25/2017 07:00 (CDT) SHIFT END DATE/TIME: 12/25/2017 19:00 (CDT) NAME KYLIE CASE DATE OF : 1940 DATE OF ADMISSION: 12/15/2017 13:36 (CDT) PHONE: AGE: 77 N# [id number] GENDER: Female ENCOUNTER PHYSICIAN: Dr. Maximiliano Bernal M.D. ADMISSION DIAGNOSIS: - Orthopaedic Disorders 08 - Unilateral Hip Fracture (08.11) Impacted left subcapital femoral neck fracture. EATING: EATING - STEP 1: Does the patient require assistance when eating? Yes. EATING - STEP 2: Does the patient require the assistance of a helper? No, patient only requires an assistive device, O R s/he takes more than reasonable time to eat, OR there is a safety concern, OR s/he requires modifie d food consistency EATING - SCORE: 6-DARLING GROOMING: Comb/brush hair Oral care Wash, rinse, and dry face Wash, rinse, and dry hands GROOMING - STEP 1: Does the patient require assistance when grooming? Yes. GROOMING - STEP 2: Does the patient require the assistance of a helper? No. The patient only requires an assistive devic e, OR takes more than reasonable time to groom, OR there is a concern for safety as the patient groom s GROOMING - SCORE: 6-DARLING BATHING: Activity did not occur on this shift BATHING - SCORE: 0-UNK DRESSING - UPPER BODY: Activity did not occur on this shift ARTICLES SCORE Total number of steps: 0 DRESSING - UPPER BODY - SCORE: 0-UNK DRESSING - LOWER BODY: Activity did not occur on this shift ARTICLES SCORE Total number of steps: 0 DRESSING - LOWER BODY - SCORE: 0-UNK TOILETING: TOILETING - STEP 1: Does the patient require assistance with toileting? Yes. TOILETING - STEP 2: Does the patient require the assistance of a helper? Yes. TOILETING - STEP 3: How much assistance does the patient require from the helper? Only supervision TOILETING - SCORE: 5-SUP BLADDER MANAGEMENT: BLADDER MANAGEMENT - STEP 1: Does the patient control the bladder completely and intentionally without equipment or devices or med ications, and is always continent? Yes. BLADDER MANAGEMENT - SCORE: 7-IND BOWEL MANAGEMENT: Activity did not occur on this shift BOWEL MANAGEMENT - SCORE: 7-IND TRANSFERS: BED, CHAIR, WHEELCHAIR: TRANSFERS: BED, CHAIR, WHEELCHAIR - STEP 1: Does the patient require assistance with bed, chair, or wheelchair transfers? Yes. TRANSFERS: BED, CHAIR, WHEELCHAIR - STEP 2: Does the patient require the assistance of a helper? Yes. TRANSFERS: BED, CHAIR, WHEELCHAIR - STEP 3: How much assistance does the patient require from the helper? Steadying/guiding assistance TRANSFERS: BED, CHAIR, WHEELCHAIR - SCORE: 4-MIN TRANSFERS: TOILET: TRANSFERS: TOILET - STEP 1: Does the patient require assistance with toilet transfers? Yes. TRANSFERS: TOILET - STEP 2: Does the patient require the assistance of a helper? Yes. TRANSFERS: TOILET - STEP 3: How much assistance does the patient require from the helper? Patient performs half or more of the tr ansferring tasks TRANSFERS: TOILET - STEP 4: Does the patient need only incidental help such as contact guard or steadying during toilet transfer? Yes. TRANSFERS: TOILET - SCORE: 4-MIN TRANSFERS: SHOWER: Activity did not occur on this shift TRANSFERS: SHOWER - SCORE: 0-UNK TRANSFERS: TUB: Activity did not occur on this shift TRANSFERS: TUB - SCORE: 0-UNK LOCOMOTION: WALK: Activity did not occur on this shift LOCOMOTION: WALK - SCORE: 0-UNK LOCOMOTION: WHEELCHAIR: Activity did not occur on this shift LOCOMOTION: WHEELCHAIR - SCORE: 0-UNK COMPREHENSION: COMPREHENSION - SCORE: 0-UNK EXPRESSION EXPRESSION - SCORE: 0-UNK SOCIAL INTERACTION: SOCIAL INTERACTION - SCORE: 0-UNK PROBLEM SOLVING: PROBLEM SOLVING - SCORE: 0-UNK MEMORY: MEMORY - SCORE: 0-UNK SIGNATURE PANEL: The following modified sections: Eating - Score, Grooming - Score, Bathing - Score, Dressing - Upper Body - Score, Dressing - Lower Body - Score, Toileting - Score, Bladder Management - Score, Bowel Man agement - Score, Transfers: Bed, Chair, Wheelchair - Score, Transfers: Toilet - Score, Transfers: Leona wer - Score, Transfers: Tub - Score, Locomotion: Walk - Score, Locomotion: Wheelchair - Score, Compre hension - Score, Expression - Score, Social Interaction - Score, Problem Solving - Score, Memory - Sc ore were [electronically] signed by Billy Akbar on TueDec 25 2017 09:24:25 GMT-0500 (Central Daylight Time)
[2017-12-25] MEDS: DOCUSATE NA/SENNA CONC 1 TAB PO PRN (20:13)
[2017-12-25] MEDS: TRAVOPROST 0.004% EACH EYE SCH (20:13)
[2017-12-26] MEDS: PROMOD 30 ML DOSE PO SCH ×2 (08:00→19:44)
[2017-12-26] MEDS: [UNRECOGNIZED DRUG - OTHER] EACH EYE SCH (08:14)
[2017-12-26] MEDS: AMLODIPINE 5 MG TAB PO SCH (08:15)
[2017-12-26] MEDS: HYDROCODONE/APAP 7.5/325 MG TAB PO PRN ×2 (08:15→19:45)
[2017-12-26] MEDS: DOCUSATE NA 100 MG CAP PO SCH (08:15)
[2017-12-26] MEDS: FE SULF/FA/VIT B COMP & C TAB PO SCH (08:15)
[2017-12-26] MEDS: RIVAROXABAN 10 MG TABLET PO SCH (08:15)
--- NOTE | 2017-12-26 17:41 | FAST ---
ENCOUNTER DATE AND TIME: 12/26/2017 08:00 (CDT) NAME KYLIE CASE DATE OF : 1940 DATE OF ADMISSION: 12/15/2017 13:36 (CDT) PHONE: AGE: 77 N# [id number] GENDER: Female ENCOUNTER PHYSICIAN: Dr. Maximiliano Bernal M.D. ADMISSION DIAGNOSIS: - Orthopaedic Disorders 08 - Unilateral Hip Fracture (08.11) Impacted left subcapital femoral neck fracture. EATING: Activity did not occur on this shift EATING - SCORE: 0-UNK GROOMING: Comb/brush hair Wash, rinse, and dry face Wash, rinse, and dry hands GROOMING - STEP 1: Does the patient require assistance when grooming? No. GROOMING - SCORE: 7-IND BATHING: Abdomen Buttocks Chest Left arm Left lower leg and foot Left upper leg Perineal area Right arm Right lower leg and foot Right upper leg BATHING - STEP 1: Does the patient require assistance when bathing? Yes. BATHING - STEP 2: Does the patient require the assistance of a helper? Yes. BATHING - STEP 3: How much assistance does the patient require from the helper? Only supervision, cuing, coaxing, instr uctions, encouragement BATHING - SCORE: 5-SUP DRESSING - UPPER BODY: T-shirt/pullover shirt (four steps) ARTICLES SCORE Total number of steps: 4 DRESSING - UPPER BODY - STEP 1: Does the patient require help when dressing above the waist? No. DRESSING - UPPER BODY - SCORE: 7-IND DRESSING - LOWER BODY: Elastic waist pants (three steps) Slip-on shoe - Left foot (one step) Slip-on shoe - Right foot (one step) Sock - Left foot (one step) Sock - Right foot (one step) Underwear (three steps) ARTICLES SCORE Total number of steps: 10 DRESSING - LOWER BODY - STEP 1: Does the patient require help when dressing below the waist? Yes. DRESSING - LOWER BODY - STEP 2: Does the patient require the assistance of a helper? Yes. DRESSING - LOWER BODY - STEP 3: Does the helper touch the patient while dressing? No. DRESSING - LOWER BODY - SCORE: 5-SUP TOILETING: TOILETING - STEP 1: Does the patient require assistance with toileting? Yes. TOILETING - STEP 2: Does the patient require the assistance of a helper? Yes. TOILETING - STEP 3: How much assistance does the patient require from the helper? Only supervision TOILETING - SCORE: 5-SUP BLADDER MANAGEMENT: Activity did not occur on this shift BLADDER MANAGEMENT - SCORE: 7-IND BOWEL MANAGEMENT: Activity did not occur on this shift BOWEL MANAGEMENT - SCORE: 7-IND TRANSFERS: BED, CHAIR, WHEELCHAIR: Activity did not occur on this shift TRANSFERS: BED, CHAIR, WHEELCHAIR - SCORE: 0-UNK TRANSFERS: TOILET: TRANSFERS: TOILET - STEP 1: Does the patient require assistance with toilet transfers? Yes. TRANSFERS: TOILET - STEP 2: Does the patient require the assistance of a helper? Yes. TRANSFERS: TOILET - STEP 3: How much assistance does the patient require from the helper? Only supervision, cuing, coaxing, OR he lp to set out transfer equipment or to lock brakes and/or lift foot rests TRANSFERS: TOILET - SCORE: 5-SUP TRANSFERS: SHOWER: Activity did not occur on this shift TRANSFERS: SHOWER - SCORE: 0-UNK TRANSFERS: TUB: TRANSFERS: TUB - STEP 1: Does the patient require assistance with tub transfers? Yes. TRANSFERS: TUB - STEP 2: Does the patient require the assistance of a helper? Yes. TRANSFERS: TUB - STEP 3: How much assistance does the patient require from the helper? Only supervision, cuing, coaxing, or he lp to set out transfer equipment or to lock brakes and/or lift foot rests TRANSFERS: TUB - SCORE: 5-SUP LOCOMOTION: WALK: Activity did not occur on this shift LOCOMOTION: WALK - SCORE: 0-UNK LOCOMOTION: WHEELCHAIR: Activity did not occur on this shift LOCOMOTION: WHEELCHAIR - SCORE: 0-UNK LOCOMOTION: STAIRS: Activity did not occur on this shift LOCOMOTION: STAIRS - SCORE: 0-UNK COMPREHENSION: COMPREHENSION: TYPE: Both COMPREHENSION - STEP 1: Does the patient require help to understand complex and abstract ideas (such as current events, finan kelley, discharge planning, medical issues, relationships, etc)? No. COMPREHENSION - STEP 2: Does the patient need extra time, require an assistive device (such as glasses, hearing aids, or an a ugmentative communication system), OR does s/he have mild difficulty expressing complex and abstract ideas (including mild dysarthria or mild word-finding problems)? Yes. COMPREHENSION - SCORE: 6-DARLING EXPRESSION EXPRESSION: TYPE: Non-Vocal EXPRESSION - STEP 1: Does the patient require help expressing complex and abstract ideas (such as current events, finances , discharge planning, medical issues, relationships, etc)? No. EXPRESSION - STEP 2: Does the patient need extra time, require an assistive device (such as augmentive communication syste m or a communication board), OR does s/he have mild difficulty expressing complex and abstract ideas (including mild dysarthria or mild word-find problems)? No. EXPRESSION - SCORE: 7-IND SOCIAL INTERACTION: SOCIAL INTERACTION - STEP 1: Does the patient require a helper to interact with others in social and therapeutic situations? No. SOCIAL INTERACTION - STEP 2: Does the patient need extra time in social situations, OR does s/he interact with staff, other patien ts, and family members ONLY in structured environments, OR does s/he require medication for social in teraction? No. SOCIAL INTERACTION - SCORE: 7-IND PROBLEM SOLVING: PROBLEM SOLVING - STEP 1: Does the patient need help to solve complex problems such as managing a checking account or confronti ng interpersonal problems? No. PROBLEM SOLVING - STEP 2: Does the patient require extra time to make decisions or solve problems, OR does s/he have slight dif ficulty reading, initiating, or self-correcting in unfamiliar situations? No. PROBLEM SOLVING - SCORE: 7-IND MEMORY: MEMORY - STEP 1: Does the patient need help to remember frequently encountered people, daily routines, and executing r equests? No. MEMORY - STEP 2: Does the patient have slight difficulty recognizing frequently encountered people, daily routines, or executing requests without the need for repetition or using self-initiated or environmental cues to remember? No. MEMORY - SCORE: 7-IND SIGNATURE PANEL: The following modified sections: Eating - Score, Grooming - Score, Bathing - Score, Dressing - Upper Body - Score, Dressing - Lower Body - Score, Toileting - Score, Transfers: Bed, Chair, Wheelchair - S core, Transfers: Toilet - Score, Transfers: Shower - Score, Transfers: Tub - Score, Comprehension - S core, Expression - Score, Social Interaction - Score, Problem Solving - Score, Memory - Score were [e lectronically] signed by JENNIFFER Irving on TueDec 26 2017 15:21:19 T-0500 ([place] [facility] Time)
--- NOTE | 2017-12-26 17:41 | FAST ---
SHIFT START DATE/TIME: 12/26/2017 07:00 (CDT) SHIFT END DATE/TIME: 12/26/2017 19:00 (CDT) NAME KYLIE CASE DATE OF : 1940 DATE OF ADMISSION: 12/15/2017 13:36 (CDT) PHONE: AGE: 77 N# [id number] GENDER: Female ENCOUNTER PHYSICIAN: Dr. Maximiliano Bernal M.D. ADMISSION DIAGNOSIS: - Orthopaedic Disorders 08 - Unilateral Hip Fracture (08.11) Impacted left subcapital femoral neck fracture. EATING: EATING - STEP 1: Does the patient require assistance when eating? Yes. EATING - STEP 2: Does the patient require the assistance of a helper? Yes. EATING - STEP 3: Does the patient perform half or more of the eating tasks? Yes. EATING - STEP 4: Does the patient need only supervision, cuing, coaxing OR help to apply an orthosis OR help to cut fo od, open containers, pour liquids, or butter bread? Yes. EATING - SCORE: 5-SUP GROOMING: Comb/brush hair Oral care Wash, rinse, and dry face Wash, rinse, and dry hands GROOMING - STEP 1: Does the patient require assistance when grooming? Yes. GROOMING - STEP 2: Does the patient require the assistance of a helper? No. The patient only requires an assistive devic e, OR takes more than reasonable time to groom, OR there is a concern for safety as the patient groom s GROOMING - SCORE: 6-DARLING BATHING: Activity did not occur on this shift BATHING - SCORE: 0-UNK DRESSING - UPPER BODY: Bra (three steps) T-shirt/pullover shirt (four steps) ARTICLES SCORE Total number of steps: 7 DRESSING - UPPER BODY - STEP 1: Does the patient require help when dressing above the waist? Yes. DRESSING - UPPER BODY - STEP 2: Does the patient require the assistance of a helper? Yes. DRESSING - UPPER BODY - STEP 3: Does the helper touch the patient while dressing? No. DRESSING - UPPER BODY - SCORE: 5-SUP DRESSING - LOWER BODY: Elastic waist pants (three steps) Underwear (three steps) ARTICLES SCORE Total number of steps: 6 DRESSING - LOWER BODY - STEP 1: Does the patient require help when dressing below the waist? Yes. DRESSING - LOWER BODY - STEP 2: Does the patient require the assistance of a helper? Yes. DRESSING - LOWER BODY - STEP 3: Does the helper touch the patient while dressing? Yes. DRESSING - LOWER BODY - STEP 4: How many of the total steps does the patient complete on his/her own? 4 DRESSING - LOWER BODY - SCORE: 3-MOD TOILETING: TOILETING - STEP 1: Does the patient require assistance with toileting? Yes. TOILETING - STEP 2: Does the patient require the assistance of a helper? Yes. TOILETING - STEP 3: How much assistance does the patient require from the helper? Only supervision TOILETING - SCORE: 5-SUP BLADDER MANAGEMENT: BLADDER MANAGEMENT - STEP 1: Does the patient control the bladder completely and intentionally without equipment or devices or med ications, and is always continent? No. BLADDER MANAGEMENT - STEP 2: Does the patient require the assistance of a helper? Yes. BLADDER MANAGEMENT - STEP 3: How much assistance does the patient require from the helper? Only supervision, stand-by, cuing, or c oaxing BLADDER MANAGEMENT - SCORE: 5-SUP BLADDER MANAGEMENT - FREQUENCY OF ACCIDENTS: BLADDER MANAGEMENT(FA) - STEP 1: How many accidents has the patient had during the current shift? 0 BOWEL MANAGEMENT: Activity did not occur on this shift BOWEL MANAGEMENT - SCORE: 7-IND BOWEL MANAGEMENT - FREQUENCY OF ACCIDENTS: BOWEL MANAGEMENT(FA) - STEP 1: How many accidents has the patient had during the current shift? 0 TRANSFERS: BED, CHAIR, WHEELCHAIR: TRANSFERS: BED, CHAIR, WHEELCHAIR - STEP 1: Does the patient require assistance with bed, chair, or wheelchair transfers? Yes. TRANSFERS: BED, CHAIR, WHEELCHAIR - STEP 2: Does the patient require the assistance of a helper? Yes. TRANSFERS: BED, CHAIR, WHEELCHAIR - STEP 3: How much assistance does the patient require from the helper? Only supervision TRANSFERS: BED, CHAIR, WHEELCHAIR - SCORE: 5-SUP TRANSFERS: TOILET: TRANSFERS: TOILET - STEP 1: Does the patient require assistance with toilet transfers? Yes. TRANSFERS: TOILET - STEP 2: Does the patient require the assistance of a helper? Yes. TRANSFERS: TOILET - STEP 3: How much assistance does the patient require from the helper? Patient performs half or more of the tr ansferring tasks TRANSFERS: TOILET - STEP 4: Does the patient need only incidental help such as contact guard or steadying during toilet transfer? Yes. TRANSFERS: TOILET - SCORE: 4-MIN TRANSFERS: SHOWER: Activity did not occur on this shift TRANSFERS: SHOWER - SCORE: 0-UNK TRANSFERS: TUB: Activity did not occur on this shift TRANSFERS: TUB - SCORE: 0-UNK LOCOMOTION: WALK: Activity did not occur on this shift LOCOMOTION: WALK - SCORE: 0-UNK LOCOMOTION: WHEELCHAIR: LOCOMOTION: WHEELCHAIR - STEP 1: Does the patient need help to go 150 feet in a wheelchair? Yes. LOCOMOTION: WHEELCHAIR - STEP 2: How much assistance does the patient need from the helper? Only supervision, cuing, or coaxing LOCOMOTION: WHEELCHAIR - SCORE: 5-SUP COMPREHENSION: COMPREHENSION: TYPE: Both COMPREHENSION - STEP 1: Does the patient require help to understand complex and abstract ideas (such as current events, finan kelley, discharge planning, medical issues, relationships, etc)? No. COMPREHENSION - STEP 2: Does the patient need extra time, require an assistive device (such as glasses, hearing aids, or an a ugmentative communication system), OR does s/he have mild difficulty expressing complex and abstract ideas (including mild dysarthria or mild word-finding problems)? Yes. COMPREHENSION - SCORE: 6-DARLING EXPRESSION EXPRESSION: TYPE: Both EXPRESSION - STEP 1: Does the patient require help expressing complex and abstract ideas (such as current events, finances , discharge planning, medical issues, relationships, etc)? No. EXPRESSION - STEP 2: Does the patient need extra time, require an assistive device (such as augmentive communication syste m or a communication board), OR does s/he have mild difficulty expressing complex and abstract ideas (including mild dysarthria or mild word-find problems)? Yes. EXPRESSION - SCORE: 6-DARLING SOCIAL INTERACTION: SOCIAL INTERACTION - STEP 1: Does the patient require a helper to interact with others in social and therapeutic situations? No. SOCIAL INTERACTION - STEP 2: Does the patient need extra time in social situations, OR does s/he interact with staff, other patien ts, and family members ONLY in structured environments, OR does s/he require medication for social in teraction? No. SOCIAL INTERACTION - SCORE: 7-IND PROBLEM SOLVING: PROBLEM SOLVING - STEP 1: Does the patient need help to solve complex problems such as managing a checking account or confronti ng interpersonal problems? Yes. PROBLEM SOLVING - STEP 2: Does the patient solve basic routine problems half or more of the time? Yes. PROBLEM SOLVING - STEP 3: How often does the patient need help to solve basic routine problems? Less than 10% of the time PROBLEM SOLVING - SCORE: 5-SUP MEMORY: MEMORY - STEP 1: Does the patient need help to remember frequently encountered people, daily routines, and executing r equests? No. MEMORY - STEP 2: Does the patient have slight difficulty recognizing frequently encountered people, daily routines, or executing requests without the need for repetition or using self-initiated or environmental cues to remember? Yes. MEMORY - SCORE: 6-DARLING SIGNATURE PANEL: The following modified sections: Eating - Score, Grooming - Score, Bathing - Score, Dressing - Upper Body - Score, Dressing - Lower Body - Score, Toileting - Score, Bladder Management - Score, Bowel Man agement - Score, Transfers: Bed, Chair, Wheelchair - Score, Transfers: Toilet - Score, Transfers: Leona wer - Score, Transfers: Tub - Score, Locomotion: Walk - Score, Locomotion: Wheelchair - Score, Compre hension - Score, Expression - Score, Social Interaction - Score, Problem Solving - Score, Memory - Sc ore were [electronically] signed by Rima Ashraf C.N.A. on TueDec 26 2017 15:21:59 T-0500 ([facility])
--- NOTE | 2017-12-26 17:41 | FAST ---
ENCOUNTER DATE AND TIME: 12/26/2017 08:00 (CDT) NAME KYLIE CASE DATE OF : 1940 DATE OF ADMISSION: 12/15/2017 13:36 (CDT) PHONE: AGE: 77 N# [id number] GENDER: Female ENCOUNTER PHYSICIAN: Dr. Maximiliano Bernal M.D. ADMISSION DIAGNOSIS: - Orthopaedic Disorders 08 - Unilateral Hip Fracture (08.11) Impacted left subcapital femoral neck fracture. EATING: Activity did not occur on this shift EATING - SCORE: 0-UNK GROOMING: Activity did not occur on this shift GROOMING - SCORE: 0-UNK BATHING: Activity did not occur on this shift BATHING - SCORE: 0-UNK DRESSING - UPPER BODY: Activity did not occur on this shift ARTICLES SCORE Total number of steps: 0 DRESSING - UPPER BODY - SCORE: 0-UNK DRESSING - LOWER BODY: Activity did not occur on this shift ARTICLES SCORE Total number of steps: 0 DRESSING - LOWER BODY - SCORE: 0-UNK TOILETING: Activity did not occur on this shift TOILETING - SCORE: 0-UNK BLADDER MANAGEMENT: Activity did not occur on this shift BLADDER MANAGEMENT - SCORE: 7-IND BOWEL MANAGEMENT: Activity did not occur on this shift BOWEL MANAGEMENT - SCORE: 7-IND TRANSFERS: BED, CHAIR, WHEELCHAIR: TRANSFERS: BED, CHAIR, WHEELCHAIR - STEP 1: Does the patient require assistance with bed, chair, or wheelchair transfers? Yes. TRANSFERS: BED, CHAIR, WHEELCHAIR - STEP 2: Does the patient require the assistance of a helper? Yes. TRANSFERS: BED, CHAIR, WHEELCHAIR - STEP 3: How much assistance does the patient require from the helper? Only supervision TRANSFERS: BED, CHAIR, WHEELCHAIR - SCORE: 5-SUP TRANSFERS: TOILET: Activity did not occur on this shift TRANSFERS: TOILET - SCORE: 0-UNK TRANSFERS: SHOWER: Activity did not occur on this shift TRANSFERS: SHOWER - SCORE: 0-UNK TRANSFERS: TUB: Activity did not occur on this shift TRANSFERS: TUB - SCORE: 0-UNK LOCOMOTION: WALK: Patient walks less than 50 feet LOCOMOTION: WALK - SCORE: 1-DEP LOCOMOTION: WHEELCHAIR: LOCOMOTION: WHEELCHAIR - STEP 1: Does the patient need help to go 150 feet in a wheelchair? No. LOCOMOTION: WHEELCHAIR - SCORE: 6-DARLING LOCOMOTION: STAIRS: Activity did not occur on this shift LOCOMOTION: STAIRS - SCORE: 0-UNK COMPREHENSION: COMPREHENSION - SCORE: 0-UNK EXPRESSION EXPRESSION - SCORE: 0-UNK SOCIAL INTERACTION: SOCIAL INTERACTION - SCORE: 0-UNK PROBLEM SOLVING: PROBLEM SOLVING - SCORE: 0-UNK MEMORY: MEMORY - SCORE: 0-UNK SIGNATURE PANEL: The following modified sections: Transfers: Bed, Chair, Wheelchair - Score, Transfers: Toilet - Score , Locomotion: Walk - Score, Locomotion: Wheelchair - Score, Locomotion: Stairs - Score were [electron ically] signed by Herman Perez PTA on TueDec 26 2017 15:26:18 GMT-0500 (Central Daylight Time)
[2017-12-26] MEDS: TRAVOPROST 0.004% EACH EYE SCH (19:45)
--- NOTE | 2017-12-27 03:24 | FAST ---
SHIFT START DATE/TIME: 12/26/2017 19:00 (CDT) SHIFT END DATE/TIME: 12/27/2017 07:00 (CDT) NAME KYLIE CASE DATE OF : 1940 DATE OF ADMISSION: 12/15/2017 13:36 (CDT) PHONE: AGE: 77 N# [id number] GENDER: Female ENCOUNTER PHYSICIAN: Dr. Maximiliano Bernal M.D. ADMISSION DIAGNOSIS: - Orthopaedic Disorders 08 - Unilateral Hip Fracture (08.11) Impacted left subcapital femoral neck fracture. EATING: Activity did not occur on this shift EATING - SCORE: 0-UNK GROOMING: Wash, rinse, and dry face Wash, rinse, and dry hands GROOMING - STEP 1: Does the patient require assistance when grooming? Yes. GROOMING - STEP 2: Does the patient require the assistance of a helper? Yes. GROOMING - STEP 3: How much assistance does the patient require from the helper? Only prior equipment preparation/set up from the helper GROOMING - SCORE: 5-SUP BATHING: Activity did not occur on this shift BATHING - SCORE: 0-UNK DRESSING - UPPER BODY: Activity did not occur on this shift ARTICLES SCORE Total number of steps: 0 DRESSING - UPPER BODY - SCORE: 0-UNK DRESSING - LOWER BODY: Activity did not occur on this shift ARTICLES SCORE Total number of steps: 0 DRESSING - LOWER BODY - SCORE: 0-UNK TOILETING: TOILETING - STEP 1: Does the patient require assistance with toileting? Yes. TOILETING - STEP 2: Does the patient require the assistance of a helper? Yes. TOILETING - STEP 3: How much assistance does the patient require from the helper? Only supervision TOILETING - SCORE: 5-SUP BLADDER MANAGEMENT: BLADDER MANAGEMENT - STEP 1: Does the patient control the bladder completely and intentionally without equipment or devices or med ications, and is always continent? No. BLADDER MANAGEMENT - STEP 2: Does the patient require the assistance of a helper? Yes. BLADDER MANAGEMENT - STEP 3: How much assistance does the patient require from the helper? Only supervision, stand-by, cuing, or c oaxing BLADDER MANAGEMENT - SCORE: 5-SUP BOWEL MANAGEMENT: BOWEL MANAGEMENT - STEP 1: Does the patient control bowels completely and intentionally without equipment devices or medications AND is always continent? No. BOWEL MANAGEMENT - STEP 2: Does the patient require the assistance of a helper? Yes. BOWEL MANAGEMENT - STEP 3: How much assistance does the patient require from the helper? Patient requires supervision, stand by, cueing, coaxing, or setup of equipment - placing within reach of patient and emptying device / bedpa nd or BSC bucket - to maintain either satisfactory bowel pattern or managing an external device such as an absorbent pad, colostomy bag / ileostomy bag BOWEL MANAGEMENT - SCORE: 5-SUP TRANSFERS: BED, CHAIR, WHEELCHAIR: TRANSFERS: BED, CHAIR, WHEELCHAIR - STEP 1: Does the patient require assistance with bed, chair, or wheelchair transfers? Yes. TRANSFERS: BED, CHAIR, WHEELCHAIR - STEP 2: Does the patient require the assistance of a helper? Yes. TRANSFERS: BED, CHAIR, WHEELCHAIR - STEP 3: How much assistance does the patient require from the helper? Steadying/guiding assistance TRANSFERS: BED, CHAIR, WHEELCHAIR - SCORE: 4-MIN TRANSFERS: TOILET: TRANSFERS: TOILET - STEP 1: Does the patient require assistance with toilet transfers? Yes. TRANSFERS: TOILET - STEP 2: Does the patient require the assistance of a helper? Yes. TRANSFERS: TOILET - STEP 3: How much assistance does the patient require from the helper? Only supervision, cuing, coaxing, OR he lp to set out transfer equipment or to lock brakes and/or lift foot rests TRANSFERS: TOILET - SCORE: 5-SUP TRANSFERS: SHOWER: Activity did not occur on this shift TRANSFERS: SHOWER - SCORE: 0-UNK TRANSFERS: TUB: Activity did not occur on this shift TRANSFERS: TUB - SCORE: 0-UNK LOCOMOTION: WALK: Activity did not occur on this shift LOCOMOTION: WALK - SCORE: 0-UNK LOCOMOTION: WHEELCHAIR: Activity did not occur on this shift LOCOMOTION: WHEELCHAIR - SCORE: 0-UNK COMPREHENSION: COMPREHENSION - STEP 1: Does the patient require help to understand complex and abstract ideas (such as current events, finan kelley, discharge planning, medical issues, relationships, etc)? No. COMPREHENSION - STEP 2: Does the patient need extra time, require an assistive device (such as glasses, hearing aids, or an a ugmentative communication system), OR does s/he have mild difficulty expressing complex and abstract ideas (including mild dysarthria or mild word-finding problems)? Yes. COMPREHENSION - SCORE: 6-DARLING EXPRESSION EXPRESSION - STEP 1: Does the patient require help expressing complex and abstract ideas (such as current events, finances , discharge planning, medical issues, relationships, etc)? No. EXPRESSION - STEP 2: Does the patient need extra time, require an assistive device (such as augmentive communication syste m or a communication board), OR does s/he have mild difficulty expressing complex and abstract ideas (including mild dysarthria or mild word-find problems)? No. EXPRESSION - SCORE: 7-IND SOCIAL INTERACTION: SOCIAL INTERACTION - STEP 1: Does the patient require a helper to interact with others in social and therapeutic situations? No. SOCIAL INTERACTION - STEP 2: Does the patient need extra time in social situations, OR does s/he interact with staff, other patien ts, and family members ONLY in structured environments, OR does s/he require medication for social in teraction? No. SOCIAL INTERACTION - SCORE: 7-IND PROBLEM SOLVING: PROBLEM SOLVING - STEP 1: Does the patient need help to solve complex problems such as managing a checking account or confronti ng interpersonal problems? No. PROBLEM SOLVING - STEP 2: Does the patient require extra time to make decisions or solve problems, OR does s/he have slight dif ficulty reading, initiating, or self-correcting in unfamiliar situations? Yes, patient needs extra ti me. PROBLEM SOLVING - SCORE: 6-DARLING MEMORY: MEMORY - STEP 1: Does the patient need help to remember frequently encountered people, daily routines, and executing r equests? No. MEMORY - STEP 2: Does the patient have slight difficulty recognizing frequently encountered people, daily routines, or executing requests without the need for repetition or using self-initiated or environmental cues to remember? No. MEMORY - SCORE: 7-IND SIGNATURE PANEL: The following modified sections: Eating - Score, Grooming - Score, Dressing - Upper Body - Score, Tray ssing - Lower Body - Score, Toileting - Score, Bladder Management - Score, Bowel Management - Score, Transfers: Bed, Chair, Wheelchair - Score, Transfers: Toilet - Score, Transfers: Shower - Score, Smart sfers: Tub - Score, Locomotion: Walk - Score, Locomotion: Wheelchair - Score, Comprehension - Score, Expression - Score, Social Interaction - Score, Problem Solving - Score, Memory - Score were [electro nically] signed by Lili Galdamez CNA on TueDec 27 2017 02:25:49 GMT-0500 (Central Daylight Time)
[2017-12-27] MEDS: PROMOD 30 ML DOSE PO SCH ×2 (08:00→19:41)
[2017-12-27] MEDS: [UNRECOGNIZED DRUG - OTHER] EACH EYE SCH (08:06)
[2017-12-27] MEDS: HYDROCODONE/APAP 7.5/325 MG TAB PO PRN ×2 (08:06→21:20)
[2017-12-27] MEDS: FE SULF/FA/VIT B COMP & C TAB PO SCH (08:06)
[2017-12-27] MEDS: DOCUSATE NA 100 MG CAP PO SCH (08:07)
[2017-12-27] MEDS: RIVAROXABAN 10 MG TABLET PO SCH (08:07)
[2017-12-27] MEDS: AMLODIPINE 5 MG TAB PO SCH (08:07)
--- NOTE | 2017-12-27 15:33 | FAST ---
ENCOUNTER DATE AND TIME: 12/27/2017 08:00 (CDT) NAME KYLIE CASE DATE OF : 1940 DATE OF ADMISSION: 12/15/2017 13:36 (CDT) PHONE: AGE: 77 N# [id number] GENDER: Female ENCOUNTER PHYSICIAN: Dr. Maximiliano Bernal M.D. ADMISSION DIAGNOSIS: - Orthopaedic Disorders 08 - Unilateral Hip Fracture (08.11) Impacted left subcapital femoral neck fracture. EATING: Activity did not occur on this shift EATING - SCORE: 0-UNK GROOMING: Activity did not occur on this shift GROOMING - SCORE: 0-UNK BATHING: Activity did not occur on this shift BATHING - SCORE: 0-UNK DRESSING - UPPER BODY: Activity did not occur on this shift ARTICLES SCORE Total number of steps: 0 DRESSING - UPPER BODY - SCORE: 0-UNK DRESSING - LOWER BODY: Activity did not occur on this shift ARTICLES SCORE Total number of steps: 0 DRESSING - LOWER BODY - SCORE: 0-UNK TOILETING: Activity did not occur on this shift TOILETING - SCORE: 0-UNK BLADDER MANAGEMENT: Activity did not occur on this shift BLADDER MANAGEMENT - SCORE: 7-IND BOWEL MANAGEMENT: Activity did not occur on this shift BOWEL MANAGEMENT - SCORE: 7-IND TRANSFERS: BED, CHAIR, WHEELCHAIR: Activity did not occur on this shift TRANSFERS: BED, CHAIR, WHEELCHAIR - SCORE: 0-UNK TRANSFERS: TOILET: Activity did not occur on this shift TRANSFERS: TOILET - SCORE: 0-UNK TRANSFERS: SHOWER: Activity did not occur on this shift TRANSFERS: SHOWER - SCORE: 0-UNK TRANSFERS: TUB: Activity did not occur on this shift TRANSFERS: TUB - SCORE: 0-UNK LOCOMOTION: WALK: Patient walks less than 50 feet LOCOMOTION: WALK - SCORE: 1-DEP LOCOMOTION: WHEELCHAIR: LOCOMOTION: WHEELCHAIR - STEP 1: Does the patient need help to go 150 feet in a wheelchair? No. LOCOMOTION: WHEELCHAIR - SCORE: 6-DARLING LOCOMOTION: STAIRS: Activity did not occur on this shift LOCOMOTION: STAIRS - SCORE: 0-UNK COMPREHENSION: COMPREHENSION - SCORE: 0-UNK EXPRESSION EXPRESSION - SCORE: 0-UNK SOCIAL INTERACTION: SOCIAL INTERACTION - SCORE: 0-UNK PROBLEM SOLVING: PROBLEM SOLVING - SCORE: 0-UNK MEMORY: MEMORY - SCORE: 0-UNK SIGNATURE PANEL: The following modified sections: Transfers: Bed, Chair, Wheelchair - Score, Transfers: Toilet - Score , Locomotion: Walk - Score, Locomotion: Wheelchair - Score, Locomotion: Stairs - Score were [electron walter] signed by Tonya Seay PTA on TueDec 27 2017 14:35:19 GMT-0500 (Central Daylight Time)
--- NOTE | 2017-12-27 15:46 | FAST ---
SHIFT START DATE/TIME: 12/27/2017 07:00 (CDT) SHIFT END DATE/TIME: 12/27/2017 19:00 (CDT) NAME KYLIE CASE DATE OF : 1940 DATE OF ADMISSION: 12/15/2017 13:36 (CDT) PHONE: AGE: 77 N# [id number] GENDER: Female ENCOUNTER PHYSICIAN: Dr. Maximiliano Bernal M.D. ADMISSION DIAGNOSIS: - Orthopaedic Disorders 08 - Unilateral Hip Fracture (08.11) Impacted left subcapital femoral neck fracture. EATING: EATING - STEP 1: Does the patient require assistance when eating? Yes. EATING - STEP 2: Does the patient require the assistance of a helper? No, patient only requires an assistive device, O R s/he takes more than reasonable time to eat, OR there is a safety concern, OR s/he requires modifie d food consistency EATING - SCORE: 6-DARLING GROOMING: Comb/brush hair Oral care Wash, rinse, and dry face Wash, rinse, and dry hands GROOMING - STEP 1: Does the patient require assistance when grooming? Yes. GROOMING - STEP 2: Does the patient require the assistance of a helper? No. The patient only requires an assistive devic e, OR takes more than reasonable time to groom, OR there is a concern for safety as the patient groom s GROOMING - SCORE: 6-DARLING BATHING: Activity did not occur on this shift BATHING - SCORE: 0-UNK DRESSING - UPPER BODY: Activity did not occur on this shift ARTICLES SCORE Total number of steps: 0 DRESSING - UPPER BODY - SCORE: 0-UNK DRESSING - LOWER BODY: Activity did not occur on this shift ARTICLES SCORE Total number of steps: 0 DRESSING - LOWER BODY - SCORE: 0-UNK TOILETING: TOILETING - STEP 1: Does the patient require assistance with toileting? Yes. TOILETING - STEP 2: Does the patient require the assistance of a helper? Yes. TOILETING - STEP 3: How much assistance does the patient require from the helper? Only supervision TOILETING - SCORE: 5-SUP BLADDER MANAGEMENT: BLADDER MANAGEMENT - STEP 1: Does the patient control the bladder completely and intentionally without equipment or devices or med ications, and is always continent? No. BLADDER MANAGEMENT - STEP 2: Does the patient require the assistance of a helper? No, patient requires and independently uses an a ssistive device, such as a urinal, bedpan, bedside commode, catheter, absorbent pad, or collecting de vice BLADDER MANAGEMENT - SCORE: 6-DARLING BLADDER MANAGEMENT - FREQUENCY OF ACCIDENTS: BLADDER MANAGEMENT(FA) - STEP 1: How many accidents has the patient had during the current shift? 0 BOWEL MANAGEMENT: Activity did not occur on this shift BOWEL MANAGEMENT - SCORE: 7-IND TRANSFERS: BED, CHAIR, WHEELCHAIR: TRANSFERS: BED, CHAIR, WHEELCHAIR - STEP 1: Does the patient require assistance with bed, chair, or wheelchair transfers? Yes. TRANSFERS: BED, CHAIR, WHEELCHAIR - STEP 2: Does the patient require the assistance of a helper? No. Patient only requires an assistive device fo r bed, chair, wheelchair transfers such as a sliding board, grab bar, or brace, OR s/he takes more th an reasonable time, OR there is a safety concern when s/he performs the transfers TRANSFERS: BED, CHAIR, WHEELCHAIR - SCORE: 6-DARLING TRANSFERS: TOILET: TRANSFERS: TOILET - STEP 1: Does the patient require assistance with toilet transfers? Yes. TRANSFERS: TOILET - STEP 2: Does the patient require the assistance of a helper? No. Patient only requires an assistive device nesbitt ch as a grab bar or special seat, OR s/he takes more than reasonable time to perform toilet transfers , OR there is a safety concern when s/he performs toilet transfers. TRANSFERS: TOILET - SCORE: 6-DARLING TRANSFERS: SHOWER: Activity did not occur on this shift TRANSFERS: SHOWER - SCORE: 0-UNK TRANSFERS: TUB: Activity did not occur on this shift TRANSFERS: TUB - SCORE: 0-UNK LOCOMOTION: WALK: Activity did not occur on this shift LOCOMOTION: WALK - SCORE: 0-UNK LOCOMOTION: WHEELCHAIR: LOCOMOTION: WHEELCHAIR - STEP 1: Does the patient need help to go 150 feet in a wheelchair? Yes. LOCOMOTION: WHEELCHAIR - STEP 2: How much assistance does the patient need from the helper? Only supervision, cuing, or coaxing LOCOMOTION: WHEELCHAIR - SCORE: 5-SUP COMPREHENSION: COMPREHENSION: TYPE: Both COMPREHENSION - STEP 1: Does the patient require help to understand complex and abstract ideas (such as current events, finan kelley, discharge planning, medical issues, relationships, etc)? No. COMPREHENSION - STEP 2: Does the patient need extra time, require an assistive device (such as glasses, hearing aids, or an a ugmentative communication system), OR does s/he have mild difficulty expressing complex and abstract ideas (including mild dysarthria or mild word-finding problems)? Yes. COMPREHENSION - SCORE: 6-DARLING EXPRESSION EXPRESSION: TYPE: Both EXPRESSION - STEP 1: Does the patient require help expressing complex and abstract ideas (such as current events, finances , discharge planning, medical issues, relationships, etc)? Yes. EXPRESSION - STEP 2: Does the patient require help to express basic necessities or ideas (such as hunger, thirst, sleep, s afety, daily schedule, room location, or discomfort) half or more of the time? No. EXPRESSION - STEP 3: How often does the patient need help to express directions and conversation about basic needs? Less t hernandez 10% of the time EXPRESSION - SCORE: 5-SUP SOCIAL INTERACTION: SOCIAL INTERACTION - STEP 1: Does the patient require a helper to interact with others in social and therapeutic situations? No. SOCIAL INTERACTION - STEP 2: Does the patient need extra time in social situations, OR does s/he interact with staff, other patien ts, and family members ONLY in structured environments, OR does s/he require medication for social in teraction? Yes, patient needs extra time SOCIAL INTERACTION - SCORE: 6-DARLING PROBLEM SOLVING: PROBLEM SOLVING - STEP 1: Does the patient need help to solve complex problems such as managing a checking account or confronti ng interpersonal problems? Yes. PROBLEM SOLVING - STEP 2: Does the patient solve basic routine problems half or more of the time? Yes. PROBLEM SOLVING - STEP 3: How often does the patient need help to solve basic routine problems? Less than 10% of the time PROBLEM SOLVING - SCORE: 5-SUP MEMORY: MEMORY - STEP 1: Does the patient need help to remember frequently encountered people, daily routines, and executing r equests? No. MEMORY - STEP 2: Does the patient have slight difficulty recognizing frequently encountered people, daily routines, or executing requests without the need for repetition or using self-initiated or environmental cues to remember? Yes. MEMORY - SCORE: 6-DARLING SIGNATURE PANEL: The following modified sections: Eating - Score, Grooming - Score, Bathing - Score, Dressing - Upper Body - Score, Dressing - Lower Body - Score, Toileting - Score, Bladder Management - Score, Bowel Man agement - Score, Transfers: Bed, Chair, Wheelchair - Score, Transfers: Toilet - Score, Transfers: Leona wer - Score, Transfers: Tub - Score, Locomotion: Walk - Score, Locomotion: Wheelchair - Score, Compre hension - Score, Expression - Score, Social Interaction - Score, Problem Solving - Score, Memory - Sc ore were [electronically] signed by Rima Ashraf C.N.A. on TueDec 27 2017 14:47:50 T-0500 (Centra l Daylight Time)
[2017-12-27] MEDS: TRAVOPROST 0.004% EACH EYE SCH (19:45)
--- NOTE | 2017-12-28 00:37 | R.PN ---
ENCOUNTER DATE AND TIME: 12/27/2017 23:35 (CDT) NAME KYLIE CASE DATE OF : 1940 DATE OF ADMISSION: 12/15/2017 13:36 (CDT) Impacted left subcapital femoral neck fractureCHIEF COMPLAINT: Left hip fracture. SUBJECTIVE: Pt denied any Shortness of Breath. Pt denied any depression. Propelled wheelchair 500' with modified independence. VITAL SIGNS Temperature: 97.8 F SBP/DBP: 135/69 Pulse: 72 Resp: 16 MEDICATION ALLERGIES: Sulfa ENVIRONMENTAL ALLERGIES: None Known - Substance Allergies None Known - Other Allergies None Known NURSING: - Shower allowing shower - Skin care per protocol PRECAUTIONS: - Weight Bearing Precaution TTWB left LE ACTIVITIES OOB only with supervision THERAPIES: - Occupational Therapy Evaluate and Treat. - Physical Therapy Evaluate and Treat. PHYSICAL EXAM - Gen Alert and awake Lying in bed No apparent distress Oriented to: person, time, and place - Vital Signs Vital signs stable, afebrile - Skin No skin breakdown. Normacephalic - Eyes No abnormalities - ENMT No abnormalities - Neck No abnormalities - CVS RRR - Chest Clear - Abd Soft - GI Non distended Deferred - No abnormalities - Ext No significant edema - MSK 4+/5 weakness in left lower extremity - Neuro Mild left leg 4/5 weakness. - Psych No abnormalities ASSESSMENT: Pt. is a 77 yo Right-handed white female.On 12/12/2017 she was admitted to [facility] and [facility] for Impacted left subcapital femoral neck fracture (Percutaneous pin fixati on left impacted femoral neck fracture ) by DR. DORIAN EASTMAN.Pre-morbidly, Pt. was independent/mod-I in Locomotion and Self-Care; and she had good Transfers Control, Balance, Safety Awareness, Social C ognition, Sphincter Control, and Communication.Currently, she has deficits of Sphincter Control, [place] motion, Balance, Endurance, Safety Awareness, Transfers Control, and Self-Care.Pt. is now referred to [facility] for acute in-patient rehabilitation in order to maximize patient's functional independence in activities of daily living, strength, ROM, and mobility.- Rehab Goal Patient has realistic goal of being discharged at assistance level 6-Micheal to reside at Home with Fam mario alberto/Relatives. MDM/PLAN: - Anterior Hip Precaution No abduction No active extension No adduction across midline No external rotation No hip flexion >90 degrees No internal rotation - Physical Therapy Decreased range of motion - to improve, our physical therapists will perform initial evaluation of p t's status upon admission and devise an individualized program for increasing patient's Range of Scott on. Gait dysfunction - to improve, our physical therapists will perform initial evaluation of pt's statu s upon admission and devise an individualized program for Gait Training, and Wheel Chair mobility Inability to transfer - to improve, our physical therapists will perform initial evaluation of pt's status upon admission and devise an individualized program for Bed mobility Need for home safety evaluation - to improve, our physical therapists will perform initial evaluatio n of pt's status upon admission and devise an individualized program for Home Evaluation Need in caregiver upon discharge - to improve, our physical therapists will perform initial evaluati on of pt's status upon admission and devise an individualized program for Caregiver Training Edema - to improve, our physical therapists will perform initial evaluation of pt's status upon admi ssion and devise an individualized program for Elevation Training, and Lymphedema Therapy New precaution - to improve, our physical therapists will perform initial evaluation of pt's status upon admission and devise an individualized program for Patient precaution education Poor balance - to improve, our physical therapists will perform initial evaluation of pt's status up on admission and devise an individualized program for Balance Training Poor endurance - to improve, our physical therapists will perform initial evaluation of pt's status upon admission and devise an individualized program for Endurance Training Weakness - to improve, our physical therapists will perform initial evaluation of pt's status upon a dmission and devise an individualized program for Aquatic Therapy, Neuromuscular Reeducation, and Str engthening Achieving independence - to improve, our physical therapists will perform initial evaluation of pt's status upon admission and devise an individualized program for Community Reintegration Activities - Diet - Liquid Texture Continue Regular - Tube Feed Continue N/A - Diet Type Continue Regular - Posterior Hip Precaution No adduction across midline No external rotation No hip flexion >90 degrees No internal rotation No wheel chair propulsion - Occupational Therapy ADL deficits - to improve, our occupation therapists will perform initial evaluation of pt's status upon admission and devise an individualized program for Bathing, Bed mobility, Community Reintegratio n, Cooking, Dressing, Eating, Fine Motor Skills, Grooming, Homemaking, Kitchen Mobility, Laundry, Pat ient Education, Safety Awareness, Splinting - Positioning, Transfers(Toilet, Tub, Shower), and Wheel Chair Management Need for post anesthesia care unit nurse - to improve, our occupation therapists will perform initial evaluation of pt's status upon admission and devise an individualized program for Caregiver Training Weakness - to improve, our occupation therapists will perform initial evaluation of pt's status upon admission and devise an individualized program for Aquatic Therapy, Balance, Endurance, UE ROM, and UE strengthening - Weight Bearing Precaution TTWB left LE - Skin care per protocol - Diet - Solid Texture Continue Regular - Shower allowing shower FUNCTIONAL STATUS: - Self-Care A. Eating sup B. Grooming sup C. Bathing maxA D. Dressing - Upper modA E. Dressing - Lower maxA F. Toileting maxA - Sphincter Control G. Bladder control maxA H. Bowel control maxA - Transfers Control I. Bed/Chair/Wheelchair maxA J. Toilet maxA K. Tub/Shower maxA - Locomotion L. Walk/Wheelchair (W) Dep M. Stairs ADNO - Communication N. Comprehension (B) Micheal O. Expression (B) Micheal - Social Cognition P. Social Interaction Micheal Q. Problem Solving Micheal R. Memory Micheal - Endurance Poor - Balance Poor - Safety Awareness Poor CURRENT FUNC. DEFICITS: Sphincter Control, Locomotion, Balance, Endurance, Safety Awareness, Transfers Control, and Self-Care SIGNATURE PANEL: (CDT)
--- NOTE | 2017-12-28 02:55 | FAST ---
SHIFT START DATE/TIME: 12/27/2017 19:00 (CDT) SHIFT END DATE/TIME: 12/28/2017 07:00 (CDT) NAME KYLIE CASE DATE OF : 1940 DATE OF ADMISSION: 12/15/2017 13:36 (CDT) PHONE: AGE: 77 N# [id number] GENDER: Female ENCOUNTER PHYSICIAN: Dr. Maximiliano Bernal M.D. ADMISSION DIAGNOSIS: - Orthopaedic Disorders 08 - Unilateral Hip Fracture (08.11) Impacted left subcapital femoral neck fracture. EATING: Activity did not occur on this shift EATING - SCORE: 0-UNK GROOMING: Wash, rinse, and dry hands GROOMING - STEP 1: Does the patient require assistance when grooming? Yes. GROOMING - STEP 2: Does the patient require the assistance of a helper? Yes. GROOMING - STEP 3: How much assistance does the patient require from the helper? Only prior equipment preparation/set up from the helper GROOMING - SCORE: 5-SUP BATHING: Activity did not occur on this shift BATHING - SCORE: 0-UNK DRESSING - UPPER BODY: Activity did not occur on this shift ARTICLES SCORE Total number of steps: 0 DRESSING - UPPER BODY - SCORE: 0-UNK DRESSING - LOWER BODY: Activity did not occur on this shift ARTICLES SCORE Total number of steps: 0 DRESSING - LOWER BODY - SCORE: 0-UNK TOILETING: TOILETING - STEP 1: Does the patient require assistance with toileting? Yes. TOILETING - STEP 2: Does the patient require the assistance of a helper? No. TOILETING - SCORE: 6-DARLING BLADDER MANAGEMENT: BLADDER MANAGEMENT - STEP 1: Does the patient control the bladder completely and intentionally without equipment or devices or med ications, and is always continent? No. BLADDER MANAGEMENT - STEP 2: Does the patient require the assistance of a helper? Yes. BLADDER MANAGEMENT - STEP 3: How much assistance does the patient require from the helper? Only supervision, stand-by, cuing, or c oaxing BLADDER MANAGEMENT - SCORE: 5-SUP BOWEL MANAGEMENT: Activity did not occur on this shift BOWEL MANAGEMENT - SCORE: 7-IND TRANSFERS: BED, CHAIR, WHEELCHAIR: TRANSFERS: BED, CHAIR, WHEELCHAIR - STEP 1: Does the patient require assistance with bed, chair, or wheelchair transfers? Yes. TRANSFERS: BED, CHAIR, WHEELCHAIR - STEP 2: Does the patient require the assistance of a helper? No. Patient only requires an assistive device fo r bed, chair, wheelchair transfers such as a sliding board, grab bar, or brace, OR s/he takes more th an reasonable time, OR there is a safety concern when s/he performs the transfers TRANSFERS: BED, CHAIR, WHEELCHAIR - SCORE: 6-DARLING TRANSFERS: TOILET: TRANSFERS: TOILET - STEP 1: Does the patient require assistance with toilet transfers? Yes. TRANSFERS: TOILET - STEP 2: Does the patient require the assistance of a helper? No. Patient only requires an assistive device nesbitt ch as a grab bar or special seat, OR s/he takes more than reasonable time to perform toilet transfers , OR there is a safety concern when s/he performs toilet transfers. TRANSFERS: TOILET - SCORE: 6-DARLING TRANSFERS: SHOWER: Activity did not occur on this shift TRANSFERS: SHOWER - SCORE: 0-UNK TRANSFERS: TUB: Activity did not occur on this shift TRANSFERS: TUB - SCORE: 0-UNK LOCOMOTION: WALK: Activity did not occur on this shift LOCOMOTION: WALK - SCORE: 0-UNK LOCOMOTION: WHEELCHAIR: Activity did not occur on this shift LOCOMOTION: WHEELCHAIR - SCORE: 0-UNK COMPREHENSION: COMPREHENSION - STEP 1: Does the patient require help to understand complex and abstract ideas (such as current events, finan kelley, discharge planning, medical issues, relationships, etc)? No. COMPREHENSION - STEP 2: Does the patient need extra time, require an assistive device (such as glasses, hearing aids, or an a ugmentative communication system), OR does s/he have mild difficulty expressing complex and abstract ideas (including mild dysarthria or mild word-finding problems)? Yes. COMPREHENSION - SCORE: 6-DARLING EXPRESSION EXPRESSION - STEP 1: Does the patient require help expressing complex and abstract ideas (such as current events, finances , discharge planning, medical issues, relationships, etc)? No. EXPRESSION - STEP 2: Does the patient need extra time, require an assistive device (such as augmentive communication syste m or a communication board), OR does s/he have mild difficulty expressing complex and abstract ideas (including mild dysarthria or mild word-find problems)? No. EXPRESSION - SCORE: 7-IND SOCIAL INTERACTION: SOCIAL INTERACTION - STEP 1: Does the patient require a helper to interact with others in social and therapeutic situations? No. SOCIAL INTERACTION - STEP 2: Does the patient need extra time in social situations, OR does s/he interact with staff, other patien ts, and family members ONLY in structured environments, OR does s/he require medication for social in teraction? No. SOCIAL INTERACTION - SCORE: 7-IND PROBLEM SOLVING: PROBLEM SOLVING - STEP 1: Does the patient need help to solve complex problems such as managing a checking account or confronti ng interpersonal problems? No. PROBLEM SOLVING - STEP 2: Does the patient require extra time to make decisions or solve problems, OR does s/he have slight dif ficulty reading, initiating, or self-correcting in unfamiliar situations? No. PROBLEM SOLVING - SCORE: 7-IND MEMORY: MEMORY - STEP 1: Does the patient need help to remember frequently encountered people, daily routines, and executing r equests? No. MEMORY - STEP 2: Does the patient have slight difficulty recognizing frequently encountered people, daily routines, or executing requests without the need for repetition or using self-initiated or environmental cues to remember? No. MEMORY - SCORE: 7-IND SIGNATURE PANEL: The following modified sections: Eating - Score, Grooming - Score, Dressing - Upper Body - Score, Tray ssing - Lower Body - Score, Toileting - Score, Bladder Management - Score, Bowel Management - Score, Transfers: Bed, Chair, Wheelchair - Score, Transfers: Toilet - Score, Transfers: Shower - Score, Smart sfers: Tub - Score, Locomotion: Walk - Score, Locomotion: Wheelchair - Score, Comprehension - Score, Expression - Score, Social Interaction - Score, Problem Solving - Score, Memory - Score were [electro nically] signed by Lili Galdamez CNA on TueDec 28 2017 01:56:45 GMT-0500 (Central Daylight Time)
[2017-12-28] MEDS: HYDROCODONE/APAP 7.5/325 MG TAB PO PRN ×3 (06:34→21:12)
[2017-12-28] MEDS: AMLODIPINE 5 MG TAB PO SCH (08:14)
[2017-12-28] MEDS: FE SULF/FA/VIT B COMP & C TAB PO SCH (08:14)
[2017-12-28] MEDS: RIVAROXABAN 10 MG TABLET PO SCH (08:15)
[2017-12-28] MEDS: DOCUSATE NA 100 MG CAP PO SCH (08:15)
[2017-12-28] MEDS: [UNRECOGNIZED DRUG - OTHER] EACH EYE SCH (08:16)
[2017-12-28] MEDS: PROMOD 30 ML DOSE PO SCH ×2 (08:17→19:40)
--- NOTE | 2017-12-28 09:52 | FAST ---
SHIFT START DATE/TIME: 12/28/2017 07:00 (CDT) SHIFT END DATE/TIME: 12/28/2017 19:00 (CDT) NAME KYLIE CASE DATE OF : 1940 DATE OF ADMISSION: 12/15/2017 13:36 (CDT) PHONE: AGE: 77 N# [id number] GENDER: Female ENCOUNTER PHYSICIAN: Dr. Maximiliano Bernal M.D. ADMISSION DIAGNOSIS: - Orthopaedic Disorders 08 - Unilateral Hip Fracture (08.11) Impacted left subcapital femoral neck fracture. EATING: EATING - STEP 1: Does the patient require assistance when eating? Yes. EATING - STEP 2: Does the patient require the assistance of a helper? No, patient only requires an assistive device, O R s/he takes more than reasonable time to eat, OR there is a safety concern, OR s/he requires modifie d food consistency EATING - SCORE: 6-DARLING GROOMING: Comb/brush hair Oral care Wash, rinse, and dry face Wash, rinse, and dry hands GROOMING - STEP 1: Does the patient require assistance when grooming? Yes. GROOMING - STEP 2: Does the patient require the assistance of a helper? No. The patient only requires an assistive devic e, OR takes more than reasonable time to groom, OR there is a concern for safety as the patient groom s GROOMING - SCORE: 6-DARLING BATHING: Activity did not occur on this shift BATHING - SCORE: 0-UNK DRESSING - UPPER BODY: Activity did not occur on this shift ARTICLES SCORE Total number of steps: 0 DRESSING - UPPER BODY - SCORE: 0-UNK DRESSING - LOWER BODY: Activity did not occur on this shift ARTICLES SCORE Total number of steps: 0 DRESSING - LOWER BODY - SCORE: 0-UNK TOILETING: TOILETING - STEP 1: Does the patient require assistance with toileting? Yes. TOILETING - STEP 2: Does the patient require the assistance of a helper? No. TOILETING - SCORE: 6-DARLING BLADDER MANAGEMENT: BLADDER MANAGEMENT - STEP 1: Does the patient control the bladder completely and intentionally without equipment or devices or med ications, and is always continent? Yes. BLADDER MANAGEMENT - SCORE: 7-IND BOWEL MANAGEMENT: Activity did not occur on this shift BOWEL MANAGEMENT - SCORE: 7-IND TRANSFERS: BED, CHAIR, WHEELCHAIR: TRANSFERS: BED, CHAIR, WHEELCHAIR - STEP 1: Does the patient require assistance with bed, chair, or wheelchair transfers? Yes. TRANSFERS: BED, CHAIR, WHEELCHAIR - STEP 2: Does the patient require the assistance of a helper? No. Patient only requires an assistive device fo r bed, chair, wheelchair transfers such as a sliding board, grab bar, or brace, OR s/he takes more th an reasonable time, OR there is a safety concern when s/he performs the transfers TRANSFERS: BED, CHAIR, WHEELCHAIR - SCORE: 6-DARLING TRANSFERS: TOILET: TRANSFERS: TOILET - STEP 1: Does the patient require assistance with toilet transfers? Yes. TRANSFERS: TOILET - STEP 2: Does the patient require the assistance of a helper? No. Patient only requires an assistive device nesbitt ch as a grab bar or special seat, OR s/he takes more than reasonable time to perform toilet transfers , OR there is a safety concern when s/he performs toilet transfers. TRANSFERS: TOILET - SCORE: 6-DARLING TRANSFERS: SHOWER: Activity did not occur on this shift TRANSFERS: SHOWER - SCORE: 0-UNK TRANSFERS: TUB: Activity did not occur on this shift TRANSFERS: TUB - SCORE: 0-UNK LOCOMOTION: WALK: Activity did not occur on this shift LOCOMOTION: WALK - SCORE: 0-UNK LOCOMOTION: WHEELCHAIR: Activity did not occur on this shift LOCOMOTION: WHEELCHAIR - SCORE: 0-UNK COMPREHENSION: COMPREHENSION - SCORE: 0-UNK EXPRESSION EXPRESSION - SCORE: 0-UNK SOCIAL INTERACTION: SOCIAL INTERACTION - SCORE: 0-UNK PROBLEM SOLVING: PROBLEM SOLVING - SCORE: 0-UNK MEMORY: MEMORY - SCORE: 0-UNK SIGNATURE PANEL: The following modified sections: Eating - Score, Grooming - Score, Bathing - Score, Dressing - Upper Body - Score, Dressing - Lower Body - Score, Toileting - Score, Bladder Management - Score, Bowel Man agement - Score, Transfers: Bed, Chair, Wheelchair - Score, Transfers: Toilet - Score, Transfers: Leona wer - Score, Transfers: Tub - Score, Locomotion: Walk - Score, Locomotion: Wheelchair - Score, Compre hension - Score, Expression - Score, Social Interaction - Score, Problem Solving - Score, Memory - Sc ore were [electronically] signed by Billy Akbar on TueDec 28 2017 08:54:05 GMT-0500 (Central Daylight Time)
--- NOTE | 2017-12-28 16:33 | FAST ---
ENCOUNTER DATE AND TIME: 12/28/2017 08:00 (CDT) NAME KYLIE CASE DATE OF : 1940 DATE OF ADMISSION: 12/15/2017 13:36 (CDT) PHONE: AGE: 77 N# [id number] GENDER: Female ENCOUNTER PHYSICIAN: Dr. Maximiliano Bernal M.D. ADMISSION DIAGNOSIS: - Orthopaedic Disorders 08 - Unilateral Hip Fracture (08.11) Impacted left subcapital femoral neck fracture. EATING: Activity did not occur on this shift EATING - SCORE: 0-UNK GROOMING: Wash, rinse, and dry face Wash, rinse, and dry hands GROOMING - STEP 1: Does the patient require assistance when grooming? No. GROOMING - SCORE: 7-IND BATHING: Abdomen Buttocks Chest Left arm Left lower leg and foot Left upper leg Perineal area Right arm Right lower leg and foot Right upper leg BATHING - STEP 1: Does the patient require assistance when bathing? Yes. BATHING - STEP 2: Does the patient require the assistance of a helper? No. The patient only requires an assistive devic e such as a bath ramya, OR the patient takes more than reasonable time to bathe, OR there is a concern for safety such as regulating water temperature as the patient bathes. BATHING - SCORE: 6-DARLING DRESSING - UPPER BODY: T-shirt/pullover shirt (four steps) ARTICLES SCORE Total number of steps: 4 DRESSING - UPPER BODY - STEP 1: Does the patient require help when dressing above the waist? No. DRESSING - UPPER BODY - SCORE: 7-IND DRESSING - LOWER BODY: Elastic waist pants (three steps) Slip-on shoe - Left foot (one step) Slip-on shoe - Right foot (one step) Underwear (three steps) ARTICLES SCORE Total number of steps: 8 DRESSING - LOWER BODY - STEP 1: Does the patient require help when dressing below the waist? Yes. DRESSING - LOWER BODY - STEP 2: Does the patient require the assistance of a helper? No. Patient requires an assistive device such as a ophthalmic lens inspector. OR s/he takes more than reasonable time as s/he dresses the lower body, OR there is a con cern for safety when s/he dresses the lower body DRESSING - LOWER BODY - SCORE: 6-DARLING TOILETING: Activity did not occur on this shift TOILETING - SCORE: 0-UNK BLADDER MANAGEMENT: Activity did not occur on this shift BLADDER MANAGEMENT - SCORE: 7-IND BOWEL MANAGEMENT: Activity did not occur on this shift BOWEL MANAGEMENT - SCORE: 7-IND TRANSFERS: BED, CHAIR, WHEELCHAIR: Activity did not occur on this shift TRANSFERS: BED, CHAIR, WHEELCHAIR - SCORE: 0-UNK TRANSFERS: TOILET: Activity did not occur on this shift TRANSFERS: TOILET - SCORE: 0-UNK TRANSFERS: SHOWER: Activity did not occur on this shift TRANSFERS: SHOWER - SCORE: 0-UNK TRANSFERS: TUB: TRANSFERS: TUB - STEP 1: Does the patient require assistance with tub transfers? Yes. TRANSFERS: TUB - STEP 2: Does the patient require the assistance of a helper? No. Only requires the assistance of an assistive device, OR takes more than reasonable time, OR there is a concern for safety when s/he performs tub transfers TRANSFERS: TUB - SCORE: 6-DARLING LOCOMOTION: WALK: Activity did not occur on this shift LOCOMOTION: WALK - SCORE: 0-UNK LOCOMOTION: WHEELCHAIR: Activity did not occur on this shift LOCOMOTION: WHEELCHAIR - SCORE: 0-UNK LOCOMOTION: STAIRS: Activity did not occur on this shift LOCOMOTION: STAIRS - SCORE: 0-UNK COMPREHENSION: COMPREHENSION: TYPE: Both COMPREHENSION - STEP 1: Does the patient require help to understand complex and abstract ideas (such as current events, finan kelley, discharge planning, medical issues, relationships, etc)? No. COMPREHENSION - STEP 2: Does the patient need extra time, require an assistive device (such as glasses, hearing aids, or an a ugmentative communication system), OR does s/he have mild difficulty expressing complex and abstract ideas (including mild dysarthria or mild word-finding problems)? Yes. COMPREHENSION - SCORE: 6-DARLING EXPRESSION EXPRESSION: TYPE: Non-Vocal EXPRESSION - STEP 1: Does the patient require help expressing complex and abstract ideas (such as current events, finances , discharge planning, medical issues, relationships, etc)? No. EXPRESSION - STEP 2: Does the patient need extra time, require an assistive device (such as augmentive communication syste m or a communication board), OR does s/he have mild difficulty expressing complex and abstract ideas (including mild dysarthria or mild word-find problems)? No. EXPRESSION - SCORE: 7-IND SOCIAL INTERACTION: SOCIAL INTERACTION - STEP 1: Does the patient require a helper to interact with others in social and therapeutic situations? No. SOCIAL INTERACTION - STEP 2: Does the patient need extra time in social situations, OR does s/he interact with staff, other patien ts, and family members ONLY in structured environments, OR does s/he require medication for social in teraction? No. SOCIAL INTERACTION - SCORE: 7-IND PROBLEM SOLVING: PROBLEM SOLVING - STEP 1: Does the patient need help to solve complex problems such as managing a checking account or confronti ng interpersonal problems? No. PROBLEM SOLVING - STEP 2: Does the patient require extra time to make decisions or solve problems, OR does s/he have slight dif ficulty reading, initiating, or self-correcting in unfamiliar situations? No. PROBLEM SOLVING - SCORE: 7-IND MEMORY: MEMORY - STEP 1: Does the patient need help to remember frequently encountered people, daily routines, and executing r equests? No. MEMORY - STEP 2: Does the patient have slight difficulty recognizing frequently encountered people, daily routines, or executing requests without the need for repetition or using self-initiated or environmental cues to remember? No. MEMORY - SCORE: 7-IND SIGNATURE PANEL: The following modified sections: Eating - Score, Grooming - Score, Bathing - Score, Dressing - Upper Body - Score, Dressing - Lower Body - Score, Toileting - Score, Transfers: Bed, Chair, Wheelchair - S core, Transfers: Toilet - Score, Transfers: Shower - Score, Transfers: Tub - Score, Comprehension - S core, Expression - Score, Social Interaction - Score, Problem Solving - Score, Memory - Score were [e lectronically] signed by JENNIFFER Irving on TueDec 28 2017 15:35:07 T-0500 ([facility] Time)
[2017-12-28] MEDS: DOCUSATE NA/SENNA CONC 1 TAB PO PRN (19:40)
[2017-12-28] MEDS: TRAVOPROST 0.004% EACH EYE SCH (19:44)
--- NOTE | 2017-12-29 03:39 | FAST ---
SHIFT START DATE/TIME: 12/28/2017 19:00 (CDT) SHIFT END DATE/TIME: 12/29/2017 07:00 (CDT) NAME KYLIE CASE DATE OF : 1940 DATE OF ADMISSION: 12/15/2017 13:36 (CDT) PHONE: AGE: 77 N# [id number] GENDER: Female ENCOUNTER PHYSICIAN: Dr. Maximiliano Bernal M.D. ADMISSION DIAGNOSIS: - Orthopaedic Disorders 08 - Unilateral Hip Fracture (08.11) Impacted left subcapital femoral neck fracture. EATING: Activity did not occur on this shift EATING - SCORE: 0-UNK GROOMING: Wash, rinse, and dry hands GROOMING - STEP 1: Does the patient require assistance when grooming? Yes. GROOMING - STEP 2: Does the patient require the assistance of a helper? No. The patient only requires an assistive devic e, OR takes more than reasonable time to groom, OR there is a concern for safety as the patient groom s GROOMING - SCORE: 6-DARLING BATHING: Activity did not occur on this shift BATHING - SCORE: 0-UNK DRESSING - UPPER BODY: Activity did not occur on this shift ARTICLES SCORE Total number of steps: 0 DRESSING - UPPER BODY - SCORE: 0-UNK DRESSING - LOWER BODY: Activity did not occur on this shift ARTICLES SCORE Total number of steps: 0 DRESSING - LOWER BODY - SCORE: 0-UNK TOILETING: TOILETING - STEP 1: Does the patient require assistance with toileting? Yes. TOILETING - STEP 2: Does the patient require the assistance of a helper? Yes. TOILETING - STEP 3: How much assistance does the patient require from the helper? Only supervision TOILETING - SCORE: 5-SUP BLADDER MANAGEMENT: BLADDER MANAGEMENT - STEP 1: Does the patient control the bladder completely and intentionally without equipment or devices or med ications, and is always continent? No. BLADDER MANAGEMENT - STEP 2: Does the patient require the assistance of a helper? Yes. BLADDER MANAGEMENT - STEP 3: How much assistance does the patient require from the helper? Only supervision, stand-by, cuing, or c oaxing BLADDER MANAGEMENT - SCORE: 5-SUP BOWEL MANAGEMENT: Activity did not occur on this shift BOWEL MANAGEMENT - SCORE: 7-IND TRANSFERS: BED, CHAIR, WHEELCHAIR: TRANSFERS: BED, CHAIR, WHEELCHAIR - STEP 1: Does the patient require assistance with bed, chair, or wheelchair transfers? Yes. TRANSFERS: BED, CHAIR, WHEELCHAIR - STEP 2: Does the patient require the assistance of a helper? No. Patient only requires an assistive device fo r bed, chair, wheelchair transfers such as a sliding board, grab bar, or brace, OR s/he takes more th an reasonable time, OR there is a safety concern when s/he performs the transfers TRANSFERS: BED, CHAIR, WHEELCHAIR - SCORE: 6-DARLING TRANSFERS: TOILET: TRANSFERS: TOILET - STEP 1: Does the patient require assistance with toilet transfers? Yes. TRANSFERS: TOILET - STEP 2: Does the patient require the assistance of a helper? No. Patient only requires an assistive device nesbitt ch as a grab bar or special seat, OR s/he takes more than reasonable time to perform toilet transfers , OR there is a safety concern when s/he performs toilet transfers. TRANSFERS: TOILET - SCORE: 6-DARLING TRANSFERS: SHOWER: Activity did not occur on this shift TRANSFERS: SHOWER - SCORE: 0-UNK TRANSFERS: TUB: Activity did not occur on this shift TRANSFERS: TUB - SCORE: 0-UNK LOCOMOTION: WALK: Activity did not occur on this shift LOCOMOTION: WALK - SCORE: 0-UNK LOCOMOTION: WHEELCHAIR: Activity did not occur on this shift LOCOMOTION: WHEELCHAIR - SCORE: 0-UNK COMPREHENSION: COMPREHENSION: TYPE: Both COMPREHENSION - STEP 1: Does the patient require help to understand complex and abstract ideas (such as current events, finan kelley, discharge planning, medical issues, relationships, etc)? No. COMPREHENSION - STEP 2: Does the patient need extra time, require an assistive device (such as glasses, hearing aids, or an a ugmentative communication system), OR does s/he have mild difficulty expressing complex and abstract ideas (including mild dysarthria or mild word-finding problems)? Yes. COMPREHENSION - SCORE: 6-DARLING EXPRESSION EXPRESSION: TYPE: Both EXPRESSION - STEP 1: Does the patient require help expressing complex and abstract ideas (such as current events, finances , discharge planning, medical issues, relationships, etc)? No. EXPRESSION - STEP 2: Does the patient need extra time, require an assistive device (such as augmentive communication syste m or a communication board), OR does s/he have mild difficulty expressing complex and abstract ideas (including mild dysarthria or mild word-find problems)? No. EXPRESSION - SCORE: 7-IND SOCIAL INTERACTION: SOCIAL INTERACTION - STEP 1: Does the patient require a helper to interact with others in social and therapeutic situations? No. SOCIAL INTERACTION - STEP 2: Does the patient need extra time in social situations, OR does s/he interact with staff, other patien ts, and family members ONLY in structured environments, OR does s/he require medication for social in teraction? No. SOCIAL INTERACTION - SCORE: 7-IND PROBLEM SOLVING: PROBLEM SOLVING - STEP 1: Does the patient need help to solve complex problems such as managing a checking account or confronti ng interpersonal problems? No. PROBLEM SOLVING - STEP 2: Does the patient require extra time to make decisions or solve problems, OR does s/he have slight dif ficulty reading, initiating, or self-correcting in unfamiliar situations? No. PROBLEM SOLVING - SCORE: 7-IND MEMORY: MEMORY - STEP 1: Does the patient need help to remember frequently encountered people, daily routines, and executing r equests? No. MEMORY - STEP 2: Does the patient have slight difficulty recognizing frequently encountered people, daily routines, or executing requests without the need for repetition or using self-initiated or environmental cues to remember? No. MEMORY - SCORE: 7-IND SIGNATURE PANEL: The following modified sections: Eating - Score, Grooming - Score, Bathing - Score, Dressing - Upper Body - Score, Dressing - Lower Body - Score, Toileting - Score, Bladder Management - Score, Bowel Man agement - Score, Transfers: Bed, Chair, Wheelchair - Score, Transfers: Toilet - Score, Transfers: Leona wer - Score, Transfers: Tub - Score, Locomotion: Walk - Score, Locomotion: Wheelchair - Score, Compre hension - Score, Expression - Score, Social Interaction - Score, Problem Solving - Score, Memory - Sc ore were [electronically] signed by Peggy Montoya CNA on TueDec 29 2017 02:40:51 GMT-0500 (Central Daylight Time)
[2017-12-29 06:05] LABS: Absolute Lymphocytes (CBC) 2.5 K/uL (0.7-4.9); Absolute Monocytes 0.6 K/uL (0.1-1.3); Absolute Neutrophil 3.9 K/uL (1.8-8.0); Eosinophils % 5.8 % (0-4.4); Hematocrit 34.9 % (36.0-45.0); Lymphocytes % 33.4 % (15.3-44.8); MCH 28.3 pg (27.0-35.0); MCV 87.8 fL (80-100); MPV 8.2 fL (7.6-11.3); Monocytes % 7.9 % (3.3-12.3); RBC Red Blood Cell Count 3.98 M/uL (3.86-4.86)
[2017-12-29 06:24] LABS: Albumin 3.4 g/dL (3.2-5.5); Potassium 4.7 mEq/L (3.6-5.0); Prealbumin 26.6 mg/dl (18-38)
[2017-12-29] MEDS: AMLODIPINE 5 MG TAB PO SCH (08:32)
[2017-12-29] MEDS: DOCUSATE NA 100 MG CAP PO SCH (08:32)
[2017-12-29] MEDS: HYDROCODONE/APAP 7.5/325 MG TAB PO PRN ×2 (08:32→12:11)
[2017-12-29] MEDS: RIVAROXABAN 10 MG TABLET PO SCH (08:34)
[2017-12-29] MEDS: FE SULF/FA/VIT B COMP & C TAB PO SCH (08:34)
[2017-12-29] MEDS: [UNRECOGNIZED DRUG - OTHER] EACH EYE SCH (08:34)
[2017-12-29 08:35] VITALS: BP 158/72
[2017-12-29] MEDS: PROMOD 30 ML DOSE PO SCH (08:35)
[2017-12-29 09:00] VITALS: TEMP 97.4
--- NOTE | 2017-12-29 12:11 | FAST ---
SHIFT START DATE/TIME: 12/29/2017 07:00 (CDT) SHIFT END DATE/TIME: 12/29/2017 19:00 (CDT) NAME KYLIE CASE DATE OF : 1940 DATE OF ADMISSION: 12/15/2017 13:36 (CDT) PHONE: AGE: 77 N# [id number] GENDER: Female ENCOUNTER PHYSICIAN: Dr. Maximiliano Bernal M.D. ADMISSION DIAGNOSIS: - Orthopaedic Disorders 08 - Unilateral Hip Fracture (08.11) Impacted left subcapital femoral neck fracture. EATING: EATING - STEP 1: Does the patient require assistance when eating? Yes. EATING - STEP 2: Does the patient require the assistance of a helper? No, patient only requires an assistive device, O R s/he takes more than reasonable time to eat, OR there is a safety concern, OR s/he requires modifie d food consistency EATING - SCORE: 6-DARLING GROOMING: Comb/brush hair Oral care Wash, rinse, and dry face Wash, rinse, and dry hands GROOMING - STEP 1: Does the patient require assistance when grooming? Yes. GROOMING - STEP 2: Does the patient require the assistance of a helper? No. The patient only requires an assistive devic e, OR takes more than reasonable time to groom, OR there is a concern for safety as the patient groom s GROOMING - SCORE: 6-DARLING BATHING: Activity did not occur on this shift BATHING - SCORE: 0-UNK DRESSING - UPPER BODY: T-shirt/pullover shirt (four steps) ARTICLES SCORE Total number of steps: 4 DRESSING - UPPER BODY - STEP 1: Does the patient require help when dressing above the waist? Yes. DRESSING - UPPER BODY - STEP 2: Does the patient require the assistance of a helper? No. Patient only requires an assistive device, s uch as a button hook, velcro, or social work supervisor. OR s/he takes more than reasonable time as s/he dresses the upper body. OR there is a concern for safety when s/he dresses the upper body DRESSING - UPPER BODY - SCORE: 6-DARLING DRESSING - LOWER BODY: Elastic waist pants (three steps) Sock - Left foot (one step) Sock - Right foot (one step) ARTICLES SCORE Total number of steps: 5 DRESSING - LOWER BODY - STEP 1: Does the patient require help when dressing below the waist? Yes. DRESSING - LOWER BODY - STEP 2: Does the patient require the assistance of a helper? No. Patient requires an assistive device such as a social work supervisor. OR s/he takes more than reasonable time as s/he dresses the lower body, OR there is a con cern for safety when s/he dresses the lower body DRESSING - LOWER BODY - SCORE: 6-DARLING TOILETING: TOILETING - STEP 1: Does the patient require assistance with toileting? Yes. TOILETING - STEP 2: Does the patient require the assistance of a helper? No. TOILETING - SCORE: 6-DARLING BLADDER MANAGEMENT: BLADDER MANAGEMENT - STEP 1: Does the patient control the bladder completely and intentionally without equipment or devices or med ications, and is always continent? Yes. BLADDER MANAGEMENT - SCORE: 7-IND BOWEL MANAGEMENT: Activity did not occur on this shift BOWEL MANAGEMENT - SCORE: 7-IND TRANSFERS: BED, CHAIR, WHEELCHAIR: TRANSFERS: BED, CHAIR, WHEELCHAIR - STEP 1: Does the patient require assistance with bed, chair, or wheelchair transfers? Yes. TRANSFERS: BED, CHAIR, WHEELCHAIR - STEP 2: Does the patient require the assistance of a helper? No. Patient only requires an assistive device fo r bed, chair, wheelchair transfers such as a sliding board, grab bar, or brace, OR s/he takes more th an reasonable time, OR there is a safety concern when s/he performs the transfers TRANSFERS: BED, CHAIR, WHEELCHAIR - SCORE: 6-DARLING TRANSFERS: TOILET: TRANSFERS: TOILET - STEP 1: Does the patient require assistance with toilet transfers? Yes. TRANSFERS: TOILET - STEP 2: Does the patient require the assistance of a helper? No. Patient only requires an assistive device nesbitt ch as a grab bar or special seat, OR s/he takes more than reasonable time to perform toilet transfers , OR there is a safety concern when s/he performs toilet transfers. TRANSFERS: TOILET - SCORE: 6-DARLING TRANSFERS: SHOWER: Activity did not occur on this shift TRANSFERS: SHOWER - SCORE: 0-UNK TRANSFERS: TUB: Activity did not occur on this shift TRANSFERS: TUB - SCORE: 0-UNK LOCOMOTION: WALK: Activity did not occur on this shift LOCOMOTION: WALK - SCORE: 0-UNK LOCOMOTION: WHEELCHAIR: Activity did not occur on this shift LOCOMOTION: WHEELCHAIR - SCORE: 0-UNK COMPREHENSION: COMPREHENSION - SCORE: 0-UNK EXPRESSION EXPRESSION - SCORE: 0-UNK SOCIAL INTERACTION: SOCIAL INTERACTION - SCORE: 0-UNK PROBLEM SOLVING: PROBLEM SOLVING - SCORE: 0-UNK MEMORY: MEMORY - SCORE: 0-UNK SIGNATURE PANEL: The following modified sections: Eating - Score, Grooming - Score, Bathing - Score, Dressing - Upper Body - Score, Dressing - Lower Body - Score, Toileting - Score, Bladder Management - Score, Bowel Man agement - Score, Transfers: Bed, Chair, Wheelchair - Score, Transfers: Toilet - Score, Transfers: Leona wer - Score, Transfers: Tub - Score, Locomotion: Walk - Score, Locomotion: Wheelchair - Score, Compre hension - Score, Expression - Score, Social Interaction - Score, Problem Solving - Score, Memory - Sc ore were [electronically] signed by Billy Akbar on TueDec 29 2017 11:13:42 GMT-0500 (Central Daylight Time)
--- NOTE | 2017-12-29 12:51 | FAST ---
ENCOUNTER DATE AND TIME: 12/28/2017 08:00 (CDT) NAME KYLIE CASE DATE OF : 1940 DATE OF ADMISSION: 12/15/2017 13:36 (CDT) PHONE: AGE: 77 N# [id number] GENDER: Female ENCOUNTER PHYSICIAN: Dr. Maximiliano Bernal M.D. ADMISSION DIAGNOSIS: - Orthopaedic Disorders 08 - Unilateral Hip Fracture (08.11) Impacted left subcapital femoral neck fracture. EATING: Activity did not occur on this shift EATING - SCORE: 0-UNK GROOMING: Activity did not occur on this shift GROOMING - SCORE: 0-UNK BATHING: Activity did not occur on this shift BATHING - SCORE: 0-UNK DRESSING - UPPER BODY: Activity did not occur on this shift ARTICLES SCORE Total number of steps: 0 DRESSING - UPPER BODY - SCORE: 0-UNK DRESSING - LOWER BODY: Activity did not occur on this shift ARTICLES SCORE Total number of steps: 0 DRESSING - LOWER BODY - SCORE: 0-UNK TOILETING: Activity did not occur on this shift TOILETING - SCORE: 0-UNK BLADDER MANAGEMENT: Activity did not occur on this shift BLADDER MANAGEMENT - SCORE: 7-IND BOWEL MANAGEMENT: Activity did not occur on this shift BOWEL MANAGEMENT - SCORE: 7-IND TRANSFERS: BED, CHAIR, WHEELCHAIR: TRANSFERS: BED, CHAIR, WHEELCHAIR - STEP 1: Does the patient require assistance with bed, chair, or wheelchair transfers? Yes. TRANSFERS: BED, CHAIR, WHEELCHAIR - STEP 2: Does the patient require the assistance of a helper? No. Patient only requires an assistive device fo r bed, chair, wheelchair transfers such as a sliding board, grab bar, or brace, OR s/he takes more th an reasonable time, OR there is a safety concern when s/he performs the transfers TRANSFERS: BED, CHAIR, WHEELCHAIR - SCORE: 6-DARLING TRANSFERS: TOILET: Activity did not occur on this shift TRANSFERS: TOILET - SCORE: 0-UNK TRANSFERS: SHOWER: Activity did not occur on this shift TRANSFERS: SHOWER - SCORE: 0-UNK TRANSFERS: TUB: Activity did not occur on this shift TRANSFERS: TUB - SCORE: 0-UNK LOCOMOTION: WALK: LOCOMOTION: WALK - STEP 1: Does the patient need help to walk 150 feet? Yes. LOCOMOTION: WALK - STEP 2: How much assistance does the patient require to walk a minimum of 150 feet? Patient walks less than 1 50 feet - but more than 50 feet - with the assistance of only one helper LOCOMOTION: WALK - SCORE: 2-MAX LOCOMOTION: WHEELCHAIR: LOCOMOTION: WHEELCHAIR - STEP 1: Does the patient need help to go 150 feet in a wheelchair? No. LOCOMOTION: WHEELCHAIR - SCORE: 6-DARLING LOCOMOTION: STAIRS: Activity did not occur on this shift LOCOMOTION: STAIRS - SCORE: 0-UNK COMPREHENSION: COMPREHENSION - SCORE: 0-UNK EXPRESSION EXPRESSION - SCORE: 0-UNK SOCIAL INTERACTION: SOCIAL INTERACTION - SCORE: 0-UNK PROBLEM SOLVING: PROBLEM SOLVING - SCORE: 0-UNK MEMORY: MEMORY - SCORE: 0-UNK SIGNATURE PANEL: The following modified sections: Transfers: Bed, Chair, Wheelchair - Score, Transfers: Toilet - Score , Locomotion: Walk - Score, Locomotion: Wheelchair - Score, Locomotion: Stairs - Score were [electron walter] signed by Herman Perez PTA on TueDec 29 2017 11:53:08 T-0500 (Central Daylight Time)
--- NOTE | 2017-12-29 15:25 | FAST ---
ENCOUNTER DATE AND TIME: 12/29/2017 08:00 (CDT) NAME KYLIE CASE DATE OF : 1940 DATE OF ADMISSION: 12/15/2017 13:36 (CDT) PHONE: AGE: 77 N# [id number] GENDER: Female ENCOUNTER PHYSICIAN: Dr. Maximiliano Bernal M.D. ADMISSION DIAGNOSIS: - Orthopaedic Disorders 08 - Unilateral Hip Fracture (08.11) Impacted left subcapital femoral neck fracture. EATING: Activity did not occur on this shift EATING - SCORE: 0-UNK GROOMING: Activity did not occur on this shift GROOMING - SCORE: 0-UNK BATHING: Activity did not occur on this shift BATHING - SCORE: 0-UNK DRESSING - UPPER BODY: Activity did not occur on this shift ARTICLES SCORE Total number of steps: 0 DRESSING - UPPER BODY - SCORE: 0-UNK DRESSING - LOWER BODY: Activity did not occur on this shift ARTICLES SCORE Total number of steps: 0 DRESSING - LOWER BODY - SCORE: 0-UNK TOILETING: Activity did not occur on this shift TOILETING - SCORE: 0-UNK BLADDER MANAGEMENT: Activity did not occur on this shift BLADDER MANAGEMENT - SCORE: 7-IND BOWEL MANAGEMENT: Activity did not occur on this shift BOWEL MANAGEMENT - SCORE: 7-IND TRANSFERS: BED, CHAIR, WHEELCHAIR: Activity did not occur on this shift TRANSFERS: BED, CHAIR, WHEELCHAIR - SCORE: 0-UNK TRANSFERS: TOILET: Activity did not occur on this shift TRANSFERS: TOILET - SCORE: 0-UNK TRANSFERS: SHOWER: Activity did not occur on this shift TRANSFERS: SHOWER - SCORE: 0-UNK TRANSFERS: TUB: Activity did not occur on this shift TRANSFERS: TUB - SCORE: 0-UNK LOCOMOTION: WALK: Activity did not occur on this shift LOCOMOTION: WALK - SCORE: 0-UNK LOCOMOTION: WHEELCHAIR: Activity did not occur on this shift LOCOMOTION: WHEELCHAIR - SCORE: 0-UNK LOCOMOTION: STAIRS: Activity did not occur on this shift LOCOMOTION: STAIRS - SCORE: 0-UNK COMPREHENSION: COMPREHENSION: TYPE: Both COMPREHENSION - STEP 1: Does the patient require help to understand complex and abstract ideas (such as current events, finan kelley, discharge planning, medical issues, relationships, etc)? No. COMPREHENSION - STEP 2: Does the patient need extra time, require an assistive device (such as glasses, hearing aids, or an a ugmentative communication system), OR does s/he have mild difficulty expressing complex and abstract ideas (including mild dysarthria or mild word-finding problems)? Yes. COMPREHENSION - SCORE: 6-DARLING EXPRESSION EXPRESSION: TYPE: Non-Vocal EXPRESSION - STEP 1: Does the patient require help expressing complex and abstract ideas (such as current events, finances , discharge planning, medical issues, relationships, etc)? No. EXPRESSION - STEP 2: Does the patient need extra time, require an assistive device (such as augmentive communication syste m or a communication board), OR does s/he have mild difficulty expressing complex and abstract ideas (including mild dysarthria or mild word-find problems)? No. EXPRESSION - SCORE: 7-IND SOCIAL INTERACTION: SOCIAL INTERACTION - STEP 1: Does the patient require a helper to interact with others in social and therapeutic situations? No. SOCIAL INTERACTION - STEP 2: Does the patient need extra time in social situations, OR does s/he interact with staff, other patien ts, and family members ONLY in structured environments, OR does s/he require medication for social in teraction? No. SOCIAL INTERACTION - SCORE: 7-IND PROBLEM SOLVING: PROBLEM SOLVING - STEP 1: Does the patient need help to solve complex problems such as managing a checking account or confronti ng interpersonal problems? No. PROBLEM SOLVING - STEP 2: Does the patient require extra time to make decisions or solve problems, OR does s/he have slight dif ficulty reading, initiating, or self-correcting in unfamiliar situations? No. PROBLEM SOLVING - SCORE: 7-IND MEMORY: MEMORY - STEP 1: Does the patient need help to remember frequently encountered people, daily routines, and executing r equests? No. MEMORY - STEP 2: Does the patient have slight difficulty recognizing frequently encountered people, daily routines, or executing requests without the need for repetition or using self-initiated or environmental cues to remember? No. MEMORY - SCORE: 7-IND SIGNATURE PANEL: The following modified sections: Eating - Score, Grooming - Score, Bathing - Score, Dressing - Upper Body - Score, Dressing - Lower Body - Score, Toileting - Score, Transfers: Bed, Chair, Wheelchair - S core, Transfers: Toilet - Score, Transfers: Shower - Score, Transfers: Tub - Score, Comprehension - S core, Expression - Score, Social Interaction - Score, Problem Solving - Score, Memory - Score were [e lectronically] signed by JENNIFFER Irving on TueDec 29 2017 14:27:11 [facility]-0500 (Formerly [facility] Time)
--- NOTE | 2018-01-13 14:50 | R.DS ---
FACILITY [facility] MR# [id number] NAME KYLIE CASE AD[address]ESS [id number] [place] [address] [address] [id number] PHONE DATE OF 1940 AGE 77 SSN# [id number] GENDER Female DEXTERITY Right-handed MARITAL STATUS RACE White ENCOUNTER PHYSICIAN Dr. Maximiliano Bernal M.D. REFERRING DOCTOR DR. DORIAN EASTMAN REFERRING FACILITY [facility] DISCHARGE DIAGNOSIS: - Orthopaedic Disorders 08 - Unilateral Hip Fracture (08.11) Impacted left subcapital femoral neck fracture. DATE OF ADMISSION 12/15/2017 13:36 (CDT) MEDICATION ALLERGIES: Sulfa ENVIRONMENTAL ALLERGIES: None Known - Substance Allergies None Known - Other Allergies None Known NURSING: - Shower allowing shower - Skin care per protocol PRECAUTIONS: - Weight Bearing Precaution TTWB left LE ACTIVITIES OOB only with supervision THERAPIES: - Occupational Therapy Evaluate and Treat - Physical Therapy Evaluate and Treat HISTORY OF PRESENT ILLNESS: Pt. is a 77 yo Right-handed white female.On 12/12/2017 she was admitted to [facility] and [facility] emergency surgery for Impacted left subcapital femoral neck fracture (Percutaneous pin fixati on left impacted femoral neck fracture ) by DR. DORIAN EASTMAN.Pre-morbidly, Pt. was independent/mod-I in Locomotion and Self-Care; and she had good Transfers Control, Balance, Safety Awareness, Social C ognition, Sphincter Control, and Communication.Currently, she has deficits of Sphincter Control, Gaston motion, Balance, Endurance, Safety Awareness, Transfers Control, and Self-Care.Pt. is now referred to [facility] for acute in-patient rehabilitation in order to maximize patient's functional independence in activities of daily living, strength, ROM, and mobility.- Rehab Goal Patient has realistic goal of being discharged at assistance level 6-Micheal to reside at Home with Fam mario alberto/Relatives. HOSPITAL COURSE: POSTERIOR HIP PRECAUTION: ANTERIOR HIP PRECAUTION: On 12/20/2017 the following precautions were removed for the patient: Anterior Hip Precaution - No a dduction across midline, Anterior Hip Precaution - No abduction, Anterior Hip Precaution - No activ e extension, Anterior Hip Precaution - No external rotation, Anterior Hip Precaution - No hip flexi on >90 degrees, and Anterior Hip Precaution - No internal rotation. The following precautions were added for the patient: Anterior Hip Precaution - No internal rotation, Anterior Hip Precaution - No external rotation, Anterior Hip Precaution - No abduction, Anterior Hip Precaution - No hip flexion >90 degrees, Anterior Hip Precaution - No adduction across midline, and Anterior Hip Precaution - No active extension. On 12/21/2017 the following precautions were removed for the patient: Anterior Hip Precaution - No in ternal rotation, Anterior Hip Precaution - No external rotation, Anterior Hip Precaution - No abducti on, Anterior Hip Precaution - No hip flexion >90 degrees, Anterior Hip Precaution - No adduction acro ss midline, and Anterior Hip Precaution - No active extension. The following precautions were added for the patient: Anterior Hip Precaution - No adduction across midline, Anterior Hip Precaution - No external rotation, Anterior Hip Precaution - No hip flexion > 90 degrees, Anterior Hip Precaution - No internal rotation, Anterior Hip Precaution - No abduction, and Anterior Hip Precaution - No active extension. The following precautions were removed for the patient: Anterior Hip Precaution - No external rotati on, Anterior Hip Precaution - No adduction across midline, Anterior Hip Precaution - No active exte nsion, Anterior Hip Precaution - No abduction, Anterior Hip Precaution - No hip flexion >90 degrees , and Anterior Hip Precaution - No internal rotation. On 12/16/2017 the following precautions were added for the patient: Anterior Hip Precaution - No add uction across midline, Anterior Hip Precaution - No abduction, Anterior Hip Precaution - No active extension, Anterior Hip Precaution - No external rotation, Anterior Hip Precaution - No hip flexion >90 degrees, and Anterior Hip Precaution - No internal rotation. On 12/16/2017 the following precautions were added for the patient: Posterior Hip Precaution - No ex ternal rotation, Posterior Hip Precaution - No wheel chair propulsion, Posterior Hip Precaution - N o adduction across midline, Posterior Hip Precaution - No hip flexion >90 degrees, and Posterior Hip Precaution - No internal rotation. On 12/20/2017 the following precautions were removed for the patient: Posterior Hip Precaution - No external rotation, Posterior Hip Precaution - No wheel chair propulsion, Posterior Hip Precaution - No adduction across midline, Posterior Hip Precaution - No hip flexion >90 degrees, and Posterior H ip Precaution - No internal rotation. The following precautions were added for the patient: Posterior Hip Precaution - No adduction across midline, Posterior Hip Precaution - No wheel chair propulsion, Posterior Hip Precaution - No internal rotation, Posterior Hip Precaution - No hip flexion >90 degrees, and Posterior Hip Precaution - No e xternal rotation. On 12/21/2017 the following precautions were removed for the patient: Posterior Hip Precaution - No a dduction across midline, Posterior Hip Precaution - No wheel chair propulsion, Posterior Hip Precauti on - No internal rotation, Posterior Hip Precaution - No hip flexion >90 degrees, and Posterior Hip P recaution - No external rotation. The following precautions were added for the patient: Posterior Hip Precaution - No wheel chair prop ulsion, Posterior Hip Precaution - No internal rotation, Posterior Hip Precaution - No hip flexion >90 degrees, Posterior Hip Precaution - No external rotation, and Posterior Hip Precaution - No add uction across midline. The following precautions were removed for the patient: Posterior Hip Precaution - No external rotat ion, Posterior Hip Precaution - No internal rotation, Posterior Hip Precaution - No wheel chair pro pulsion, Posterior Hip Precaution - No hip flexion >90 degrees, and Posterior Hip Precaution - No a dduction across midline. On 12/15/2017 the following precautions were added for the patient: Weight Bearing Precaution - TTWB left LE. On 12/16/2017 the following precautions were added for the patient: Weight Bearing Precaution - TTWB left LE. On 12/20/2017 the following precautions were removed for the patient: Weight Bearing Precaution - TT WB left LE. On 12/21/2017 the following precautions were added for the patient: Weight Bearing Precaution - TTWB left LE. DIET - LIQUID TEXTURE: On 12/15/2017 Pt was upgraded to Regular Diet - Liquid Texture. DIET - SOLID TEXTURE: On 12/15/2017 Pt was upgraded to Regular Diet - Solid Texture. DIET TYPE: On 12/15/2017 Pt was upgraded to Regular Diet Type. TUBE FEED: On 12/15/2017 Pt was changed to N/A Tube Feed. WEIGHT BEARING PRECAUTION: DISCHARGE PHYSICAL EXAM - Gen Alert and awake Lying in bed No apparent distress Oriented to: person, time, and place - Vital Signs Vital signs stable, afebrile - Skin No skin breakdown. Normacephalic - Eyes No abnormalities - ENMT No abnormalities - Neck No abnormalities - CVS RRR - Chest Clear - Abd Soft - GI Non distended Deferred - No abnormalities - Ext No significant edema - MSK 4+/5 weakness in left lower extremity - Neuro Mild left leg 4/5 weakness. - Psych No abnormalities FUNCTIONAL STATUS: - Self-Care A. Eating 5-sup 7-Ind B. Grooming 5-sup 7-Ind C. Bathing 2-maxA 6-Micheal D. Dressing - Upper 3-modA 7-Ind E. Dressing - Lower 2-maxA 6-Micheal F. Toileting 2-maxA 6-Micheal - Sphincter Control G. Bladder control 2-maxA 6-Micheal H. Bowel control 2-maxA 6-Micheal - Transfers Control I. Bed/Chair/Wheelchair 2-maxA 6-Micheal J. Toilet 2-maxA 6-Micheal K. Tub/Shower 2-maxA 6-Micheal - Locomotion L. Walk/Wheelchair (W) 1-Dep 6-Micheal M. Stairs 0-ADNO 0-ADNO - Communication N. Comprehension (B) 6-Micheal 6-Micheal O. Expression (B) 6-Micheal 6-Micheal - Social Cognition P. Social Interaction 6-Micheal 6-Micheal Q. Problem Solving 6-Micheal 6-Micheal R. Memory 6-Micheal 6-Micheal - Endurance Poor - Balance Poor - Safety Awareness Poor DISCHARGE INSTRUCTIONS: - N/A Xarelto 10 mg daily. DISCHARGE PLAN, FOLLOW UP CARE PROVISIONS: - Estimated Length of Stay (days) 14. - Consensus on plan Discharge plan has been discussed with primary caregiver. Patient/Family is in agreement with the devin n. Primary caregiver is in agreement with the plan. - Patient/Family Goals Return home with assistance. - Planned Living Setting Upon Discharge Home, to live with Family/Relatives. SIGNATURE PANEL: (CDT)
--- NOTE | 2018-01-22 16:42 | R.PN ---
ENCOUNTER DATE AND TIME: 01/22/2018 15:36 (CDT) NAME KYLIE CASE DATE OF : 1940 DATE OF ADMISSION: 12/15/2017 13:36 (CDT) Impacted left subcapital femoral neck fractureSUBJECTIVE: Ms. Case has limitations that significantly impair her ability to participate in her activities of daily living such as toileting, feeding, grooming and bathing, Her mobility limitations cannot be suf ficiently resolved with the use of a cane or a walker. She is able and willing to use a standard whee lchair on a daily basis in the home. MEDICATION ALLERGIES: Sulfa ENVIRONMENTAL ALLERGIES: None Known - Substance Allergies None Known - Other Allergies None Known NURSING: - Shower allowing shower - Skin care per protocol PRECAUTIONS: - Weight Bearing Precaution TTWB left LE ACTIVITIES OOB only with supervision THERAPIES: - Occupational Therapy Evaluate and Treat. - Physical Therapy Evaluate and Treat. ASSESSMENT: Pt. is a 77 yo Right-handed white female.On 12/12/2017 she was admitted to [facility] and [facility] emergency surgery for Impacted left subcapital femoral neck fracture (Percutaneous pin fixati on left impacted femoral neck fracture ) by DR. DORIAN EASTMAN.Pre-morbidly, Pt. was independent/mod-I in Locomotion and Self-Care; and she had good Transfers Control, Balance, Safety Awareness, Social C ognition, Sphincter Control, and Communication.Currently, she has deficits of CATEGORY.Pt. is now ref erred to [facility] for acute in-patient rehabilitation in order to maximize p atient's functional independence in activities of daily living, strength, ROM, and mobility.- Rehab G oal Patient has realistic goal of being discharged at assistance level 6-Micheal to reside at Home with Fam mario alberto/Relatives. MDM/PLAN: - Anterior Hip Precaution No abduction No active extension No adduction across midline No external rotation No hip flexion >90 degrees No internal rotation - Physical Therapy Decreased range of motion - to improve, our physical therapists will perform initial evaluation of p t's status upon admission and devise an individualized program for increasing patient's Range of Scott on. Gait dysfunction - to improve, our physical therapists will perform initial evaluation of pt's statu s upon admission and devise an individualized program for Gait Training, and Wheel Chair mobility Inability to transfer - to improve, our physical therapists will perform initial evaluation of pt's status upon admission and devise an individualized program for Bed mobility Need for home safety evaluation - to improve, our physical therapists will perform initial evaluatio n of pt's status upon admission and devise an individualized program for Home Evaluation Need in caregiver upon discharge - to improve, our physical therapists will perform initial evaluati on of pt's status upon admission and devise an individualized program for Caregiver Training Edema - to improve, our physical therapists will perform initial evaluation of pt's status upon admi ssion and devise an individualized program for Elevation Training, and Lymphedema Therapy New precaution - to improve, our physical therapists will perform initial evaluation of pt's status upon admission and devise an individualized program for Patient precaution education Poor balance - to improve, our physical therapists will perform initial evaluation of pt's status up on admission and devise an individualized program for Balance Training Poor endurance - to improve, our physical therapists will perform initial evaluation of pt's status upon admission and devise an individualized program for Endurance Training Weakness - to improve, our physical therapists will perform initial evaluation of pt's status upon a dmission and devise an individualized program for Aquatic Therapy, Neuromuscular Reeducation, and Str engthening Achieving independence - to improve, our physical therapists will perform initial evaluation of pt's status upon admission and devise an individualized program for Community Reintegration Activities - Diet - Liquid Texture Continue Regular - Tube Feed Continue N/A - Diet Type Continue Regular - Posterior Hip Precaution No adduction across midline No external rotation No hip flexion >90 degrees No internal rotation No wheel chair propulsion - Occupational Therapy ADL deficits - to improve, our occupation therapists will perform initial evaluation of pt's status upon admission and devise an individualized program for Bathing, Bed mobility, Community Reintegratio n, Cooking, Dressing, Eating, Fine Motor Skills, Grooming, Homemaking, Kitchen Mobility, Laundry, Pat ient Education, Safety Awareness, Splinting - Positioning, Transfers(Toilet, Tub, Shower), and Wheel Chair Management Need for daycare manager - to improve, our occupation therapists will perform initial evaluation of pt's status upon admission and devise an individualized program for Caregiver Training Weakness - to improve, our occupation therapists will perform initial evaluation of pt's status upon admission and devise an individualized program for Aquatic Therapy, Balance, Endurance, UE ROM, and UE strengthening - Weight Bearing Precaution TTWB left LE - Skin care per protocol - Diet - Solid Texture Continue Regular - Shower allowing shower FUNCTIONAL STATUS: SIGNATURE PANEL: (CDT)
== END 2017-12-29 13:30 | disposition home or self-care (01) | DRG 561 ==
LOC: 5TH 13:46
PROVIDERS: ADMIT Psychiatry & Neurology Neurology with Special Qualifications in Child Neurology; ATTEND Psychiatry & Neurology Neurology with Special Qualifications in Child Neurology
DX: S72.012D Unspecified intracapsular fracture of left femur, subsequent encounter for closed fracture with routine healing (principal); I10 Essential (primary) hypertension
CPT/HCPCS: 36415; 80048; 82040; 83735; 84134; 85025; 97542